=== PATIENT | male | born 1945 | race Caucasian/White ===

== ENCOUNTER → 2020-04-04 | Outpatient (CLI) | payer OTHER ==
[2020-04-04 12:11] LABS: Anisocytosis Slight; Basophils % (A) 1 %; Eosinophils # (A) 0.3 k/uL (0-0.7); Eosinophils % (A) 4 %; HCT 48.7 % (39.0-53.0); HGB 16.3 gm/dL (13.0-17.5); Lymphocytes # (A) 1.3 k/uL (1.0-4.8); Lymphocytes % (A) 17 %; MCH 27.5 pg (25.0-35.0); MCHC 33.3 g/dL (31.0-37.0); MCV 82.6 fL (80.0-100.0); Mean Platelet Volume 8.4; Monocytes # (A) 0.4 k/uL (0-1.0); Monocytes % (A) 5 %; Neutrophils # (A) 5.5 k/uL (1.3-7.7); Neutrophils % (A) 73 %; Platelet Count 147 k/uL (150-450); RDW 16.3 % (11.5-15.5); WBC 7.6 k/uL (3.8-10.6)
[2020-04-04 20:46] LABS: Albumin 4.4 g/dL (3.80-4.90); Albumin/Globulin Ratio 1.83 (1.60-3.17); Anion Gap 9.8 mmol/L (4.00-12.00); BUN/Creat Ratio 11.33 Ratio (12.00-20.00); Calcium 8.9 mg/dL (8.7-10.3); Carbon Dioxide 26.2 mmol/L (21.6-31.8); Globulin 2.4 g/dL (1.6-3.3); Non-African American GFR(CKD) 44.9 (60.0-200.0); Potassium 4.4 mmol/L (3.5-5.5); Total Bilirubin 1.4 mg/dL (0.3-1.2); Total Protein 6.8 g/dL (6.2-8.2)
[2020-04-04 21:53] LABS: Hemoglobin A1C 7.6 % (4.0-6.0)
== END | disposition home or self-care (01) ==
LOC: LABWHC1 10:56
PROVIDERS: ATTEND Thoracic Surgery (Cardiothoracic Vascular Surgery)
DX: E08.622 Diabetes mellitus due to underlying condition with other skin ulcer (principal); L97.212 Non-pressure chronic ulcer of right calf with fat layer exposed; I83.012 Varicose veins of right lower extremity with ulcer of calf; L97.222 Non-pressure chronic ulcer of left calf with fat layer exposed; I83.022 Varicose veins of left lower extremity with ulcer of calf
CPT/HCPCS: 36415; 80053; 83036; 84134; 85025

== ENCOUNTER → 2020-04-25 | Outpatient (CLI) | payer OTHER ==
--- NOTE | 2020-04-25 15:31 | US ---
EXAMINATION TYPE: US venous doppler duplex LE RT DATE OF EXAM: 04/25/2020 2:04 PM COMPARISON: NONE CLINICAL HISTORY: I83.012 Varicose veins of rt lower extremity w. ul. Varicose veins SIDE PERFORMED: Right TECHNIQUE: The lower extremity deep venous system is examined utilizing real time linear array sonog brenda with graded compression, doppler sonography and color-flow sonography. VESSELS IMAGED: External Iliac Vein (EIV) Common Femoral Vein Deep Femoral Vein Greater Saphenous Vein * Femoral Vein Popliteal Vein Small Saphenous Vein * Proximal Calf Veins (* superficial vessels) Right Leg: Negative for DVT IMPRESSION: No evidence for DVT.
== END | disposition home or self-care (01) ==
LOC: RADUSWWP 13:30
PROVIDERS: ATTEND Thoracic Surgery (Cardiothoracic Vascular Surgery)
DX: L97.222 Non-pressure chronic ulcer of left calf with fat layer exposed (principal); L97.212 Non-pressure chronic ulcer of right calf with fat layer exposed; I83.012 Varicose veins of right lower extremity with ulcer of calf; I83.022 Varicose veins of left lower extremity with ulcer of calf; E08.622 Diabetes mellitus due to underlying condition with other skin ulcer
CPT/HCPCS: 93923

== ENCOUNTER 2020-05-10 09:38 | Inpatient (IN) | payer OTHER, MEDICARE ==
[2020-05-10] MEDS ORDERED: PANTOPRAZOLE 40 MG/10 ML VIAL IVP STA (10:01)
--- NOTE | 2020-05-10 10:11 | ED ---
General Adult HPI - General Chief complaint: Dizziness Stated complaint: dizzy, nausea Time Seen by Provider: 05/10/20 09:49 Source: patient, family, RN notes reviewed Mode of arrival: wheelchair Limitations: physical limitation - History of Present Illness Initial comments: Patient is a pleasant 75-year-old male presenting to the emergency Department w ith fatigue and generalized weakness. Patient is hard of hearing however otherwise is a good historian. Symptoms started the last day or so. Patient does have a little bit of exertional dyspnea. Patient feels lightheaded. Patient is fatigued. Patient states this morning he did have black stools with some bloody stool. No abdominal pain. No confusion. No spinning type sensation. - Related Data Home Medications Medication Instructions Recorded Confirmed Aspirin EC [Ecotrin Low Dose] 81 mg PO DAILY 05/10/20 05/10/20 Ferrous Sulfate [Feosol] 325 mg PO DAILY 05/10/20 05/10/20 Furosemide [Lasix] 20 mg PO BID 05/10/20 05/10/20 Insulin Detemir (Levemir) [Levemir] 30 unit SQ HS 05/10/20 05/10/20 Potassium Chloride 10 meq PO DAILY 05/10/20 05/10/20 Warfarin [Coumadin] 2.5 mg PO SUTUWETHSA 05/10/20 05/10/20 Warfarin [Coumadin] 5 mg PO MOFR 05/10/20 05/10/20 glipiZIDE [Glucotrol] 5 mg PO AC-SUPPER 05/10/20 05/10/20 glipiZIDE [Glucotrol] 10 mg PO AC-BRKFST 05/10/20 05/10/20 Allergies Allergy/AdvReac Type Severity Reaction Status Date / Time No Known Allergies Allergy Verified 05/10/20 10:56 Review of Systems ROS Statement: Those systems with pertinent positive or pertinent negative responses have been documented in the HPI. ROS Other: All systems not noted in ROS Statement are negative. Constitutional: Denies: fever Eyes: Denies: eye pain ENT: Denies: ear pain Respiratory: Reports: as per HPI. Denies: cough Cardiovascular: Denies: chest pain Endocrine: Reports: fatigue Gastrointestinal: Reports: melena, hematochezia. Denies: abdominal pain Genitourinary: Denies: dysuria Musculoskeletal: Denies: back pain Skin: Denies: rash Neurological: Reports: as per HPI. Denies: headache, confusion Past Medical History Past Medical History: Diabetes Mellitus History of Any Multi-Drug Resistant Organisms: None Reported Past Surgical History: Appendectomy Additional Past Surgical History / Comment(s): right kidney removed. Past Psychological History: No Psychological Hx Reported Smoking Status: Former smoker Past Alcohol Use History: None Reported Past Drug Use History: None Reported General Exam Limitations: no limitations General appearance: alert, in no apparent distress Head exam: Present: normocephalic Eye exam: Present: normal appearance, PERRL, EOMI. Absent: nystagmus Neck exam: Present: normal inspection Respiratory exam: Present: normal lung sounds bilaterally Cardiovascular Exam: Present: regular rate, normal rhythm GI/Abdominal exam: Present: soft. Absent: tenderness Extremities exam: Present: normal inspection Neurological exam: Present: alert, oriented X3, CN II-XII intact. Absent: motor sensory deficit Expanded Neurological exam: Present: protecting the airway Patient oriented to: Present: person, place, time Speech: Present: fluid speech Cranial nerves: EOM's Intact: Normal Motor strength exam: RUE: 5, LUE: 5, RLE: 5, LLE: 5 Eye Response: (4) open spontaneously Motor Response: (6) obeys commands Verbal Response: (5) oriented Psychiatric exam: Present: normal affect, normal mood Skin exam: Present: normal color Course Vital Signs 05/10/20 05/10/20 09:43 10:11 Temperature 97.8 F Pulse Rate 92 94 Respiratory 18 18 Rate Blood Pressure 107/60 140/91 O2 Sat by Pulse 100 99 Oximetry EKG Findings - EKG Comments: EKG Findings:: Irregular narrow complex rhythm with a rate of 95. QRS 74. QT 320. QTc 402. Normal axis. Normal QRS. No acute ST change. Medical Decision Making - Medical Decision Making Patient evaluated. Patient and family updated. Dr. Fajardo has [facility] p[facility]. Case was discussed with practitioner Sierra, who will admit for Dr. Fajardo. - Lab Data Result diagrams: 05/10/20 10:26 05/10/20 10:26 Lab Results 05/10/20 05/10/20 05/10/20 Range/Units 10:26 10:26 10:26 WBC 10.9 H (3.8-10.6) k/uL RBC 3.71 L (4.30-5.90) m/uL Hgb 10.1 L D (13.0-17.5) gm/dL Hct 31.1 L (39.0-53.0) % MCV 83.7 (80.0-100.0) fL MCH 27.3 (25.0-35.0) pg MCHC 32.6 (31.0-37.0) g/dL RDW 16.8 H (11.5-15.5) % Plt Count 192 (150-450) k/uL Neutrophils % 88 % Lymphocytes % 7 % Monocytes % 3 % Eosinophils % 0 % Basophils % 0 % Neutrophils # 9.6 H (1.3-7.7) k/uL Lymphocytes # 0.8 L (1.0-4.8) k/uL Monocytes # 0.4 (0-1.0) k/uL Eosinophils # 0.0 (0-0.7) k/uL Basophils # 0.1 (0-0.2) k/uL Poikilocytosis Slight Anisocytosis Slight PT 33.8 H (9.0-12.0) sec INR 3.5 H (<1.2) APTT 28.4 (22.0-30.0) sec Sodium 132 L (137-145) mmol/L Potassium 5.6 H (3.5-5.1) mmol/L Chloride 105 (98-107) mmol/L Carbon Dioxide 19 L (22-30) mmol/L Anion Gap 8 mmol/L BUN 76 H (9-20) mg/dL Creatinine 1.47 H (0.66-1.25) mg/dL Est GFR (CKD-EPI)AfAm 53 (>60 ml/min/1.73 sqM) Est GFR (CKD-EPI)NonAf 46 (>60 ml/min/1.73 sqM) Glucose 340 H (74-99) mg/dL Calcium 8.3 L (8.4-10.2) mg/dL Total Bilirubin 1.2 (0.2-1.3) mg/dL AST 22 (17-59) U/L ALT 15 (4-49) U/L Alkaline Phosphatase 32 L (38-126) U/L Creatine Kinase 75 (55-170) U/L Troponin I (0.000-0.034) ng/mL Total Protein 5.3 L (6.3-8.2) g/dL Albumin 3.2 L (3.5-5.0) g/dL 05/10/20 Range/Units 10:26 WBC (3.8-10.6) k/uL RBC (4.30-5.90) m/uL Hgb (13.0-17.5) gm/dL Hct (39.0-53.0) % MCV (80.0-100.0) fL MCH (25.0-35.0) pg MCHC (31.0-37.0) g/dL RDW (11.5-15.5) % Plt Count (150-450) k/uL Neutrophils % % Lymphocytes % % Monocytes % % Eosinophils % % Basophils % % Neutrophils # (1.3-7.7) k/uL Lymphocytes # (1.0-4.8) k/uL Monocytes # (0-1.0) k/uL Eosinophils # (0-0.7) k/uL Basophils # (0-0.2) k/uL Poikilocytosis Anisocytosis PT (9.0-12.0) sec INR (<1.2) APTT (22.0-30.0) sec Sodium (137-145) mmol/L Potassium (3.5-5.1) mmol/L Chloride (98-107) mmol/L Carbon Dioxide (22-30) mmol/L Anion Gap mmol/L BUN (9-20) mg/dL Creatinine (0.66-1.25) mg/dL Est GFR (CKD-EPI)AfAm (>60 ml/min/1.73 sqM) Est GFR (CKD-EPI)NonAf (>60 ml/min/1.73 sqM) Glucose (74-99) mg/dL Calcium (8.4-10.2) mg/dL Total Bilirubin (0.2-1.3) mg/dL AST (17-59) U/L ALT (4-49) U/L Alkaline Phosphatase (38-126) U/L Creatine Kinase (55-170) U/L Troponin I 0.030 (0.000-0.034) ng/mL Total Protein (6.3-8.2) g/dL Albumin (3.5-5.0) g/dL - Radiology Data Radiology results: image reviewed Disposition Clinical Impression: GI hemorrhage Disposition: ADMITTED IP TO THIS HOSP Condition: Serious Is patient prescribed a controlled substance at d/c from ED?: No Referrals: [facility],Clinic [Primary Care Provider] - 1-2 days Decision Time: 11:18
[2020-05-10 10:48] LABS: Anisocytosis Slight; Basophils # (A) 0.1 k/uL (0-0.2); Basophils % (A) 0 %; Eosinophils % (A) 0 %; HCT 31.1 % (39.0-53.0); Lymphocytes # (A) 0.8 k/uL (1.0-4.8); Lymphocytes % (A) 7 %; MCH 27.3 pg (25.0-35.0); MCHC 32.6 g/dL (31.0-37.0); MCV 83.7 fL (80.0-100.0); Mean Platelet Volume 9.2; Monocytes # (A) 0.4 k/uL (0-1.0); Monocytes % (A) 3 %; Neutrophils # (A) 9.6 k/uL (1.3-7.7); Neutrophils % (A) 88 %; Platelet Count 192 k/uL (150-450); Poikilocytosis Slight; RBC 3.71 m/uL (4.30-5.90); RDW 16.8 % (11.5-15.5); WBC 10.9 k/uL (3.8-10.6)
[2020-05-10 10:53] LABS: Albumin 3.2 g/dL (3.5-5.0); Calcium 8.3 mg/dL (8.4-10.2); Potassium 5.6 mmol/L (3.5-5.1); Total Bilirubin 1.2 mg/dL (0.2-1.3); Total Protein 5.3 g/dL (6.3-8.2)
[2020-05-10 10:54] LABS: INR 3.5 (<1.2); Partial Thromboplastin Time 28.4 sec (22.0-30.0); Prothrombin Time 33.8 sec (9.0-12.0)
[2020-05-10 10:56] LABS: HGB 10.1 gm/dL (13.0-17.5)
--- NOTE | 2020-05-10 11:21 | XR ---
EXAMINATION TYPE: XR chest 2V DATE OF EXAM: 05/10/2020 COMPARISON: NONE HISTORY: Weakness TECHNIQUE: Frontal and lateral views of the chest are obtained. FINDINGS: There is no focal air space opacity, pleural effusion, or pneumothorax seen. The cardiac silhouette size is within normal limits. Aorta is dense. Thoracic spondylosis is present. Surgical cl ips present in the upper abdomen. There are coronary artery calcifications suspected. The osseous st ructures are intact, arthropathy present in the shoulders. IMPRESSION: No acute cardiopulmonary process.
[2020-05-10] MEDS ORDERED: NALOXONE 0.4 MG/ML 1 ML VIAL IV PRN (11:24)
[2020-05-10 11:27] LABS: Appearance,Urine Clear (Clear); Bilirubin,Urine Negative (Negative); Blood,Urine Negative (Negative); Color,Urine Light Yellow; Glucose,Urine (UA) 4+ (Negative); Ketones,Urine 1+ (Negative); Leukocyte Esterase,Urine Negative (Negative); Nitrite,Urine Negative (Negative); Protein,Urine Negative (Negative); Specific Gravity,Urine 1.018 (1.001-1.035); Urobilinogen,Urine <2.0 mg/dL (<2.0)
[2020-05-10] MEDS ORDERED: PANTOPRAZOLE 40 MG/10 ML VIAL IV SCH (11:30)
[2020-05-10] MEDS ORDERED: PHYTONADIONE ORAL 5 MG/5 ML ORAL.SYRG PO STA (11:31)
[2020-05-10] MEDS: SODIUM CHLORIDE 0.9% 1,000 ML IV SCH ×2 (11:54→20:45)
[2020-05-10 14:48] LABS: Anisocytosis Slight; HCT 27.8 % (39.0-53.0); HGB 9.2 gm/dL (13.0-17.5); MCH 27.8 pg (25.0-35.0); MCHC 33.1 g/dL (31.0-37.0); MCV 84.1 fL (80.0-100.0); Mean Platelet Volume 9.6; Platelet Count 206 k/uL (150-450); Poikilocytosis Slight; RBC 3.31 m/uL (4.30-5.90); WBC 12.6 k/uL (3.8-10.6)
[2020-05-10 14:55] LABS: INR 3.5 (<1.2); Prothrombin Time 34.1 sec (9.0-12.0)
[2020-05-10 15:02] LABS: Calcium 8.4 mg/dL (8.4-10.2); Potassium 5.8 mmol/L (3.5-5.1)
--- NOTE | 2020-05-10 15:30 | P.HPIM ---
History of Present Illness H&P Date: 05/10/20 Chief Complaint: Generalized weakness Patient is 74-year-old male with a known history of diabetes type 2, history of a right nephrectomy for benign tumor, varicose veins, chronic atrial fibrillation on anticoagulation with Coumadin and previous history of smoking as well as underlying cognitive impairment presents to ER with the complaints of generalized weakness and fatigue. Patient had a bowel movement with black stool this morning. Patient was also having exertional dyspnea. Denied any complaints of chest pain. Does feel lightheaded as well. No complaints of a bdominal pain. Denied any episodes of vomiting. Denied any nausea currently. Patient was found to have hemoglobin level 10.1 admission. Patient was admitted to the hospital with GI consultation. When he reaches the medical floor patient did have a large bowel movement with maroon color stool and bright red blood as well. Patient felt more weak and was diaphoretic. Repeat Hemoglobin did drop to 9.1. Contacted critical care team for possible transfer to medical intensive care unit. Laboratory data showed WBC 10.9, hemoglobin 10.1, RDW 16.8 and platelets 192 INR is 3.5 Sodium 132, potassium 5.6 and bicarb 19 BUN 76 and creatinine 1.47 CBG 340 Urinalysis is negative for infection Patient is a poor historian. Review of Systems Constitutional: Patient denies any fever or chills . Patient does have generalized weakness and fatigue. No weight loss.. Abdomen: Patient denied nausea vomiting and diarrhea and abdominal pain. Blood in the stool. Cardiovascular: Patient denies any chest pain or short of breath no palpitations. Respiratory: patient denied any cough is from production. No shortness of breath Neurologic: Patient denied any numbness or tingling headache. Musculoskeletal: Patient denies any complaints of joint swelling or deformity. Skin: Negative Psychiatric: Negative Endocrine: No heat or cold intolerance. No recent weight gain. Genitourinary: No dysuria or hematuria. All other 14 point ROS negative except the above Past Medical History Past Medical History: Diabetes Mellitus, Hearing Disorder / Deafness, Renal Disease Additional Past Medical History / Comment(s): IDDM type II, R nephrectomy for beign tumor, would to L lower extremity, [place] bilateraloly-uses hearing aides. Pt states he does not know why he is on coumadin or lasix. History of Any Multi-Drug Resistant Organisms: None Reported Past Surgical History: Appendectomy Additional Past Surgical History / Comment(s): right kidney removed for benign tumor, colonoscopy. Past Anesthesia/Blood Transfusion Reactions: No Reported Reaction Additional Past Anesthesia/Blood Transfusion Reaction / Comment(s): Pt is unsure if he received blood during R nephrectomy. Smoking Status: Former smoker - Past Family History Father Additional Family Medical History / Comment(s): Father had "heart problems" He at the age of 91 yrs. Mother Family Medical History: Cancer Additional Family Medical History / Comment(s): Mother had cancer at the age of 84 yrs but pt does not recall type. She at the age of 91 yrs. Medications and Allergies Home Medications Medication Instructions Recorded Confirmed Type Aspirin EC [Ecotrin Low Dose] 81 mg PO DAILY 05/10/20 05/10/20 History Ferrous Sulfate [Feosol] 325 mg PO DAILY 05/10/20 05/10/20 History Furosemide [Lasix] 20 mg PO BID 05/10/20 05/10/20 History Insulin Detemir (Levemir) [Levemir] 30 unit SQ HS 05/10/20 05/10/20 History Potassium Chloride 10 meq PO DAILY 05/10/20 05/10/20 History Warfarin [Coumadin] 2.5 mg PO SUTUWETHSA 05/10/20 05/10/20 History Warfarin [Coumadin] 5 mg PO MOFR 05/10/20 05/10/20 History glipiZIDE [Glucotrol] 5 mg PO AC-SUPPER 05/10/20 05/10/20 History glipiZIDE [Glucotrol] 10 mg PO AC-BRKFST 05/10/20 05/10/20 History Allergies Allergy/AdvReac Type Severity Reaction Status Date / Time No Known Allergies Allergy Verified 05/10/20 10:56 Physical Exam Vitals: Vital Signs Temp Pulse Resp BP BP Pulse Ox 05/10/20 13:50 22 105/59 100 05/10/20 11:58 98.3 F 05/10/20 11:30 96 21 111/61 100 05/10/20 10:11 94 18 140/91 99 05/10/20 09:43 97.8 F 92 18 107/60 100 Intake and Output 05/10/20 05/10/20 05/10/20 06:59 14:59 22:59 Other: Weight 107.955 kg PHYSICAL EXAMINATION: Patient is lying in the bed comfortably, no acute distress, awake alert and oriented. But lethargic and clammy.. HEENT: Normocephalic. Neck is supple. Pupils reactive. Nostrils clear. Oral cavity is moist. Ears reveal no drainage. Neck reveals no JVD, carotid bruits, or thyromegaly. CHEST EXAMINATION: Trachea is central. Symmetrical expansion. Bibasilar diminished air entry. Lung mccall clear to auscultation and percussion. CARDIAC: Normal S1, S2 with no gallops. No murmurs ABDOMEN: Soft. Nontender. Mild distention. Bowel sounds normal. No organomegaly. No abdominal bruits. Extremities: reveal no edema. No clubbing or cyanosis Neurologically awake, alert, oriented x2-3 with well-coordinated movements. Heart of hearing. No focal deficits noted Skin: No rash or skin lesions. Psychiatric: Coperative. Could not be assessed completely Musculoskeletal: No joint swelling or deformity. Normal range of motion. Results CBC & Chem 7: 05/10/20 14:34 05/10/20 14:34 Labs: Abnormal Lab Results - Last 24 Hours (Table) 05/10/20 05/10/20 05/10/20 Range/Units 10:26 10:26 10:26 WBC 10.9 H (3.8-10.6) k/uL RBC 3.71 L (4.30-5.90) m/uL Hgb 10.1 L D (13.0-17.5) gm/dL Hct 31.1 L (39.0-53.0) % RDW 16.8 H (11.5-15.5) % Neutrophils # 9.6 H (1.3-7.7) k/uL Lymphocytes # 0.8 L (1.0-4.8) k/uL PT 33.8 H (9.0-12.0) sec INR 3.5 H (<1.2) Sodium 132 L (137-145) mmol/L Potassium 5.6 H (3.5-5.1) mmol/L Carbon Dioxide 19 L (22-30) mmol/L BUN 76 H (9-20) mg/dL Creatinine 1.47 H (0.66-1.25) mg/dL Glucose 340 H (74-99) mg/dL Calcium 8.3 L (8.4-10.2) mg/dL Alkaline Phosphatase 32 L (38-126) U/L Total Protein 5.3 L (6.3-8.2) g/dL Albumin 3.2 L (3.5-5.0) g/dL Urine Glucose (UA) (Negative) Urine Ketones (Negative) 05/10/20 05/10/20 05/10/20 Range/Units 11:16 14:34 14:34 WBC 12.6 H (3.8-10.6) k/uL RBC 3.31 L (4.30-5.90) m/uL Hgb 9.2 L (13.0-17.5) gm/dL Hct 27.8 L (39.0-53.0) % RDW 17.0 H (11.5-15.5) % Neutrophils # (1.3-7.7) k/uL Lymphocytes # (1.0-4.8) k/uL PT (9.0-12.0) sec INR (<1.2) Sodium 131 L (137-145) mmol/L Potassium 5.8 H (3.5-5.1) mmol/L Carbon Dioxide 16 L (22-30) mmol/L BUN 80 H (9-20) mg/dL Creatinine 1.59 H (0.66-1.25) mg/dL Glucose 351 H (74-99) mg/dL Calcium (8.4-10.2) mg/dL Alkaline Phosphatase 30 L (38-126) U/L Total Protein 5.0 L (6.3-8.2) g/dL Albumin 3.0 L (3.5-5.0) g/dL Urine Glucose (UA) 4+ H (Negative) Urine Ketones 1+ H (Negative) 05/10/20 Range/Units 14:34 WBC (3.8-10.6) k/uL RBC (4.30-5.90) m/uL Hgb (13.0-17.5) gm/dL Hct (39.0-53.0) % RDW (11.5-15.5) % Neutrophils # (1.3-7.7) k/uL Lymphocytes # (1.0-4.8) k/uL PT 34.1 H (9.0-12.0) sec INR 3.5 H (<1.2) Sodium (137-145) mmol/L Potassium (3.5-5.1) mmol/L Carbon Dioxide (22-30) mmol/L BUN (9-20) mg/dL Creatinine (0.66-1.25) mg/dL Glucose (74-99) mg/dL Calcium (8.4-10.2) mg/dL Alkaline Phosphatase (38-126) U/L Total Protein (6.3-8.2) g/dL Albumin (3.5-5.0) g/dL Urine Glucose (UA) (Negative) Urine Ketones (Negative) Thrombosis Risk Factor Assmnt - DVT/VTE Prophylaxis DVT/VTE Prophylaxis: Mechanical Prophylaxis ordered - Choose All That Apply Any of the Below Risk Factors Present?: Yes Each Factor Represents 1 point: Obesity (BMI >25), Varicose veins Each Risk Factor Represents 3 Points: Age 75 years or older Other congenital or acquired thrombophilia - If yes, enter type in comment: No Thrombosis Risk Factor Assessment Total Risk Factor Score: 5 Thrombosis Risk Factor Assessment Level: High Risk Assessment and Plan Assessment: Symptomatic anemia Acute blood loss anemia secondary to GI bleed Chronic atrial fibrillation on anticoagulation with Coumadin Diabetes type 2 with hyperglycemia uncontrolled. 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 Previous history of smoking DVT prophylaxis with SCDs plan: Patient will be continued on IV hydration and monitor H&H closely. Continue with Protonix IV. Gastroenterology was consulted. Transfusion if the hemoglobin is less than 3. Monitor INR level. Patient is a poor historian otherwise. Possible transfer to medical intensive care unit for close monitoring due to active GI bleed. Prognosis is guarded with multiple medical problems and comorbid conditions. Time with Patient: Greater than 30
[2020-05-10 15:59] LABS: Glucose,Whole Blood 364 mg/dL (75-99)
[2020-05-10] MEDS ORDERED: PEG 3350-NA SULF,BICARB,CL/KCL 4,000 ML BOTTLE PO ONE (17:00)
[2020-05-10 17:40] LABS: Glucose,Whole Blood 329 mg/dL (75-99)
[2020-05-10] MEDS: INSULIN ASPART (NovoLOG) 100 UNIT/ML VIAL SQ SCH (17:56)
[2020-05-10 22:05] LABS: Anisocytosis Slight; HCT 22.7 % (39.0-53.0); Hypochromasia Slight; MCH 27.4 pg (25.0-35.0); MCHC 32.1 g/dL (31.0-37.0); MCV 85.4 fL (80.0-100.0); Mean Platelet Volume 9.1; Platelet Count 186 k/uL (150-450); Poikilocytosis Slight; RBC 2.66 m/uL (4.30-5.90); RDW 17.4 % (11.5-15.5); WBC 15.4 k/uL (3.8-10.6)
[2020-05-10 22:11] LABS: HGB 7.3 gm/dL (13.0-17.5)
[2020-05-11 00:15] LABS: Glucose,Whole Blood 354 mg/dL (75-99)
[2020-05-11] MEDS: INSULIN ASPART (NovoLOG) 100 UNIT/ML VIAL SQ SCH ×5 (00:17→21:49)
[2020-05-11 05:59] LABS: Glucose,Whole Blood 370 mg/dL (75-99)
[2020-05-11] MEDS ORDERED: PHYTONADIONE 10 MG in SODIUM CHLORIDE 0.9% 50 ML IVPB STA (06:10)
--- NOTE | 2020-05-11 06:21 | P.CONS ---
History of Present Illness - Reason for Consult Consult date: 05/10/20 GI bleed Requesting physician: Justin Nova - Chief Complaint Weakness, fatigue, melena - History of Present Illness 74-year-old male with a medical history significant for diabetes mellitus, right nephrectomy for benign tumor, atrial fibrillation on anticoagulation therapy with Coumadin, hearing impairment and cognitive impairment who presented to the hospital for complaints of weakness and fatigue. The patient also reported melanotic stool. He had 3 black tarry bowel movements prior to presentation and then a large maroon-colored stool after presenting to the hospital. Patient is on Coumadin therapy. He also takes iron therapy and aspirin at home. No prior EGDs or history of peptic ulcer disease reported. Last colonoscopy for screening was approximately 10-15 years ago and he believes this was negative. The patient denied any associated abdominal pain or cramping, nausea or vomiting, history of GERD or peptic ulcer disease or NSAID use. Patient was found to have a hemoglobin on presentation of 10.1 and subsequently found to be 9.1 on repeat blood draw and then 7.3. Current plan was for medical management, transfer to the ICU and transfusion of packed red blood cells. Review of Systems REVIEW OF SYSTEMS: CONSTITUTIONAL: Denies any fevers, chills, weight change but does report fatigue and weakness. CARDIOVASCULAR: Denies any chest pain, palpitations high or low blood pressures, history of atrial fibrillation. RESPIRATORY: Denies any shortness of breath, hemoptysis or cough. GENITOURINARY: No dysuria or hematuria. MUSCULOSKELETAL: No weakness reported. SKIN: Denies any new rashes or lesions, jaundice or pallor. PSYCHIATRIC: Denies any depression or anxiety. NEUROLOGY: Denies headache, denies any new focal deficits, memory impairment at baseline. EARS/NOSE/THROAT: No recent hearing change, congestion, nasal discharge or sore throat, patient suffers from hearing impairment at baseline. EYES: No pain in eyes, discharge or change in vision. GASTROINTESTINAL: As per HPI. Past Medical History Past Medical History: Diabetes Mellitus, Hearing Disorder / Deafness, Renal Disease Additional Past Medical History / Comment(s): IDDM type II, R nephrectomy for beign tumor, would to L lower extremity, [place] bilateraloly-uses hearing aides. Pt states he does not know why he is on coumadin or lasix. History of Any Multi-Drug Resistant Organisms: None Reported Past Surgical History: Appendectomy Additional Past Surgical History / Comment(s): right kidney removed for benign tumor, colonoscopy. Past Anesthesia/Blood Transfusion Reactions: No Reported Reaction Additional Past Anesthesia/Blood Transfusion Reaction / Comm: Pt is unsure if he received blood during R nephrectomy. Smoking Status: Former smoker - Past Family History Father Additional Family Medical History / Comment(s): Father had "heart problems" He at the age of 91 yrs. Mother Family Medical History: Cancer Additional Family Medical History / Comment(s): Mother had cancer at the age of 84 yrs but pt does not recall type. She at the age of 91 yrs. Medications and Allergies Home Medications Medication Instructions Recorded Confirmed Type Aspirin EC [Ecotrin Low Dose] 81 mg PO DAILY 05/10/20 05/10/20 History Ferrous Sulfate [Feosol] 325 mg PO DAILY 05/10/20 05/10/20 History Furosemide [Lasix] 20 mg PO BID 05/10/20 05/10/20 History Insulin Detemir (Levemir) [Levemir] 30 unit SQ HS 05/10/20 05/10/20 History Potassium Chloride 10 meq PO DAILY 05/10/20 05/10/20 History Warfarin [Coumadin] 2.5 mg PO SUTUWETHSA 05/10/20 05/10/20 History Warfarin [Coumadin] 5 mg PO MOFR 05/10/20 05/10/20 History glipiZIDE [Glucotrol] 5 mg PO AC-SUPPER 05/10/20 05/10/20 History glipiZIDE [Glucotrol] 10 mg PO AC-BRKFST 05/10/20 05/10/20 History Allergies Allergy/AdvReac Type Severity Reaction Status Date / Time No Known Allergies Allergy Verified 05/10/20 10:56 Physical Exam Vitals: Vital Signs Temp Pulse Pulse Resp BP BP Pulse Ox 05/10/20 19:00 99 18 154/88 99 05/10/20 18:30 89 16 164/81 100 05/10/20 18:00 85 14 130/70 100 05/10/20 17:00 96 22 132/99 98 05/10/20 16:30 94 18 128/70 100 05/10/20 16:00 97.9 F 96 17 138/78 99 05/10/20 15:00 97.3 F L 77 18 123/77 99 05/10/20 13:50 22 105/59 100 05/10/20 11:58 98.3 F 05/10/20 11:30 96 21 111/61 100 05/10/20 10:11 94 18 140/91 99 05/10/20 09:43 97.8 F 92 18 107/60 100 Intake and Output 05/10/20 05/10/20 05/10/20 06:59 14:59 22:59 Intake Total 960 Output Total 400 Balance 560 Intake: IV 360 Sodium Chloride 0.9% 1, 360 000 ml @ 120 mls/hr IV . Q8H20M [facility] Rx#:[id number] Oral 600 Output: Urine 400 Other: Voiding Method Urinal # Bowel Movements 1 Weight 107.955 kg On physical examination, patient appears comfortable in no apparent distress. HEAD: Normocephalic, atraumatic. EYES: No scleral icterus. No conjunctival injection. MOUTH: No lesions, tongue midline. NECK: Trachea midline, no gross abnormalities. CHEST: Clear to auscultation with no wheezing or rhonchi appreciated. HEART: S1-S2 appreciated. ABDOMEN: Soft, obese. Bowel sounds are positive. No organomegaly. No guarding or rigidity. EXTREMITIES: No pedal edema. SKIN: No rashes, no jaundice. NEUROLOGIC: Alert and oriented x3, heart appearing. No focal deficits. Results CBC & Chem 7: 05/10/20 21:42 05/10/20 21:42 Labs: Abnormal Lab Results - Last 24 Hours (Table) 05/10/20 05/10/20 05/10/20 Range/Units 10:26 10:26 10:26 WBC 10.9 H (3.8-10.6) k/uL RBC 3.71 L (4.30-5.90) m/uL Hgb 10.1 L D (13.0-17.5) gm/dL Hct 31.1 L (39.0-53.0) % RDW 16.8 H (11.5-15.5) % Neutrophils # 9.6 H (1.3-7.7) k/uL Lymphocytes # 0.8 L (1.0-4.8) k/uL PT 33.8 H (9.0-12.0) sec INR 3.5 H (<1.2) Sodium 132 L (137-145) mmol/L Potassium 5.6 H (3.5-5.1) mmol/L Carbon Dioxide 19 L (22-30) mmol/L BUN 76 H (9-20) mg/dL Creatinine 1.47 H (0.66-1.25) mg/dL Glucose 340 H (74-99) mg/dL POC Glucose (mg/dL) (75-99) mg/dL Calcium 8.3 L (8.4-10.2) mg/dL Alkaline Phosphatase 32 L (38-126) U/L Total Protein 5.3 L (6.3-8.2) g/dL Albumin 3.2 L (3.5-5.0) g/dL Urine Glucose (UA) (Negative) Urine Ketones (Negative) 05/10/20 05/10/20 05/10/20 Range/Units 11:16 14:34 14:34 WBC 12.6 H (3.8-10.6) k/uL RBC 3.31 L (4.30-5.90) m/uL Hgb 9.2 L (13.0-17.5) gm/dL Hct 27.8 L (39.0-53.0) % RDW 17.0 H (11.5-15.5) % Neutrophils # (1.3-7.7) k/uL Lymphocytes # (1.0-4.8) k/uL PT (9.0-12.0) sec INR (<1.2) Sodium 131 L (137-145) mmol/L Potassium 5.8 H (3.5-5.1) mmol/L Carbon Dioxide 16 L (22-30) mmol/L BUN 80 H (9-20) mg/dL Creatinine 1.59 H (0.66-1.25) mg/dL Glucose 351 H (74-99) mg/dL POC Glucose (mg/dL) (75-99) mg/dL Calcium (8.4-10.2) mg/dL Alkaline Phosphatase 30 L (38-126) U/L Total Protein 5.0 L (6.3-8.2) g/dL Albumin 3.0 L (3.5-5.0) g/dL Urine Glucose (UA) 4+ H (Negative) Urine Ketones 1+ H (Negative) 05/10/20 05/10/20 05/10/20 Range/Units 14:34 15:57 17:39 WBC (3.8-10.6) k/uL RBC (4.30-5.90) m/uL Hgb (13.0-17.5) gm/dL Hct (39.0-53.0) % RDW (11.5-15.5) % Neutrophils # (1.3-7.7) k/uL Lymphocytes # (1.0-4.8) k/uL PT 34.1 H (9.0-12.0) sec INR 3.5 H (<1.2) Sodium (137-145) mmol/L Potassium (3.5-5.1) mmol/L Carbon Dioxide (22-30) mmol/L BUN (9-20) mg/dL Creatinine (0.66-1.25) mg/dL Glucose (74-99) mg/dL POC Glucose (mg/dL) 364 H 329 H (75-99) mg/dL Calcium (8.4-10.2) mg/dL Alkaline Phosphatase (38-126) U/L Total Protein (6.3-8.2) g/dL Albumin (3.5-5.0) g/dL Urine Glucose (UA) (Negative) Urine Ketones (Negative) Chest x-ray: report reviewed (No acute cardiopulmonary process on chest x-ray) Assessment and Plan (1) GI hemorrhage Narrative/Plan: 75-year-old male with multiple medical comorbidities including atrial f ibrillation on anticoagulation therapy who presented to the hospital for weakness, fatigue and melena. Patient had multiple dark colored stool and one maroon color stool left to presentation. No history of peptic ulcer disease, NSAID use but patient is on anticoagulation therapy for atrial fibrillation and daily aspirin therapy. No prior GI bleeding reported. Last colonoscopy 10-15 years ago for screening purposes with no prior EGD. Unknown etiology, may represent peptic ulcer disease, gastritis, esophagitis, AVM or other etiology. Current Visit: Yes Status: Acute Code(s): K92.2 - GASTROINTESTINAL HEMORRHAGE, UNSPECIFIED SNOMED Code(s): 13178545 (2) Anemia associated with acute blood loss Current Visit: Yes Status: Acute Code(s): D62 - ACUTE POSTHEMORRHAGIC ANEMIA SNOMED Code(s): 091641457 Plan: Supportive care Clear liquid diet Nothing by mouth after midnight Vitamin K given for reversal of INR, will repeat INR extra doses as needed for reversal Bowel prep ordered Continue monitor CBC and transfuse as needed Continue Protonix therapy Plan for EGD and colonoscopy tomorrow for further evaluation Thank you for allowing us to participate in the care of the patient
[2020-05-11 06:30] LABS: Anisocytosis Slight; Basophils # (A) 0.1 k/uL (0-0.2); Basophils % (A) 0 %; Eosinophils # (A) 0.1 k/uL (0-0.7); Eosinophils % (A) 0 %; HGB 7.5 gm/dL (13.0-17.5); Hypochromasia Slight; Lymphocytes # (A) 1.8 k/uL (1.0-4.8); Lymphocytes % (A) 10 %; MCH 28.8 pg (25.0-35.0); MCHC 32.5 g/dL (31.0-37.0); MCV 88.6 fL (80.0-100.0); Mean Platelet Volume 9.1; Monocytes # (A) 0.7 k/uL (0-1.0); Monocytes % (A) 4 %; Neutrophils # (A) 15.7 k/uL (1.3-7.7); Neutrophils % (A) 85 %; Platelet Count 218 k/uL (150-450); Poikilocytosis Slight; RDW 18.1 % (11.5-15.5); WBC 18.6 k/uL (3.8-10.6)
[2020-05-11 06:36] LABS: INR 3.6 (<1.2); Prothrombin Time 35.7 sec (9.0-12.0)
[2020-05-11 06:39] LABS: Calcium 7.6 mg/dL (8.4-10.2); Potassium 5.3 mmol/L (3.5-5.1)
[2020-05-11] MEDS: SODIUM CHLORIDE 0.9% 1,000 ML IV SCH ×3 (06:40→21:51)
[2020-05-11] MEDS ORDERED: MAGNESIUM CITRATE 296 ML BOTTLE PO ONE (07:15)
[2020-05-11] MEDS: PANTOPRAZOLE 40 MG/10 ML VIAL IV SCH ×2 (08:33→21:50)
--- NOTE | 2020-05-11 10:08 | P.CNPUL ---
History of Present Illness Consult date: 05/11/20 Reason for consult: dyspnea, other Chief complaint: Weakness, dyspnea, anemia History of present illness: 75-year-old white male patient who follows at the [facility] for healthcare services presented to the emergency department on 05/10/2020 for evaluation of fatigue, generalized weakness that started the day before. Patient also reported exertional dyspnea, lightheadedness, and black stools with some bloody stools. He denied abdominal pain, denied chest pain. Patient extremely hard of hearing, and he is a poor historian. Patient is on Coumadin for history of atrial fibrillation, his INR on presentation was 3.5 he was given some vitamin K in the emergency department, his hemoglobin was 10.1, which was down 6 g from his previous hemoglobin done on 04/04/2020. BUN is 76, creatinine is 1.47, potassium 5.6, sodium is 132, proBNP was 982, and troponin was 0.030. Patient was given some IV fluids, he was being monitored on the observation unit, will yesterday in the afternoon on 05/10/2020 patient was increasingly more short of breath, he was starting to pass large black tarry bowel movements, he was moved to the intensive care unit for closer monitoring, his hemoglobin did drop to 7.3 last night, and patient was given a unit of packed red blood cells, this morning in the lumen is 7.5 and patient is receiving his second unit of packed red blood cells, Coumadin is on hold, today's INR 3.6, she was given an and 10 mg of vitamin K. He is on PPI therapy with Protonix 40 mg twice a day, he is nothing by mouth, he was evaluated by GI service and he is scheduled for EGD and colonoscopy today. Nursing reports patient being more short of breath, lung sounds are diminished, there is some upper airway congestion, but no acute distress, his pulse ox is 100% on 2 L, he is not on any vasopressor support, his 0.9 is infusing at a rate of 120 ML per hour. No hematemesis. Patient is an ex-smoker, which is currently in remission, is very difficult to communicate with the patient is a patient is very hard of hearing. Chest x-ray shows no focal airspace opacity no pleural effusion or pneumothorax. Review of Systems All systems: negative Constitutional: Reports fatigue, Reports weakness, Denies chills, Denies fever Eyes: denies blurred vision, denies pain Ears, nose, mouth and throat: Denies headache, Denies sore throat Cardiovascular: Reports dyspnea on exertion, Reports lightheadedness, Denies chest pain, Denies shortness of breath Respiratory: Reports dyspnea, Denies cough Gastrointestinal: Reports change in bowel habits, Reports melena, Denies abdominal pain, Denies diarrhea, Denies nausea, Denies vomiting Musculoskeletal: Denies myalgias Integumentary: Denies pruritus, Denies rash Neurological: Denies numbness, Denies weakness Psychiatric: Denies anxiety, Denies depression Endocrine: Denies fatigue, Denies weight change Past Medical History Past Medical History: Diabetes Mellitus, Hearing Disorder / Deafness, Renal D isease Additional Past Medical History / Comment(s): IDDM type II, R nephrectomy for beign tumor, would to L lower extremity, [place] bilateraloly-uses hearing aides. Pt states he does not know why he is on coumadin or lasix. History of Any Multi-Drug Resistant Organisms: None Reported Past Surgical History: Appendectomy Additional Past Surgical History / Comment(s): right kidney removed for benign t umor, colonoscopy. Past Anesthesia/Blood Transfusion Reactions: No Reported Reaction Additional Past Anesthesia/Blood Transfusion Reaction / Comment(s): Pt is unsure if he received blood during R nephrectomy. Smoking Status: Former smoker - Past Family History Father Additional Family Medical History / Comment(s): Father had "heart problems" He at the age of 91 yrs. Mother Family Medical History: Cancer Additional Family Medical History / Comment(s): Mother had cancer at the age of 84 yrs but pt does not recall type. She at the age of 91 yrs. Medications and Allergies Home Medications Medication Instructions Recorded Confirmed Type Aspirin EC [Ecotrin Low Dose] 81 mg PO DAILY 05/10/20 05/10/20 History Ferrous Sulfate [Feosol] 325 mg PO DAILY 05/10/20 05/10/20 History Furosemide [Lasix] 20 mg PO BID 05/10/20 05/10/20 History Insulin Detemir (Levemir) [Levemir] 30 unit SQ HS 05/10/20 05/10/20 History Potassium Chloride 10 meq PO DAILY 05/10/20 05/10/20 History Warfarin [Coumadin] 2.5 mg PO SUTUWETHSA 05/10/20 05/10/20 History Warfarin [Coumadin] 5 mg PO MOFR 05/10/20 05/10/20 History glipiZIDE [Glucotrol] 5 mg PO AC-SUPPER 05/10/20 05/10/20 History glipiZIDE [Glucotrol] 10 mg PO AC-BRKFST 05/10/20 05/10/20 History Allergies Allergy/AdvReac Type Severity Reaction Status Date / Time No Known Allergies Allergy Verified 05/10/20 10:56 Physical Exam Vitals: Vital Signs Temp Pulse Pulse Resp BP BP Pulse Ox 05/11/20 09:50 96.6 F L 101 H 22 119/80 100 05/11/20 09:00 99 20 129/62 98 05/11/20 08:37 96.5 F L 101 H 17 120/67 99 05/11/20 08:07 96.7 F L 92 17 104/57 98 05/11/20 08:00 96.6 F L 109 H 25 H 128/59 05/11/20 07:57 96.6 F L 101 H 16 120/59 96 05/11/20 07:00 99 23 116/63 100 05/11/20 06:00 101 H 21 130/65 100 05/11/20 05:00 111 H 13 140/71 100 05/11/20 04:00 98.1 F 95 19 114/62 100 05/11/20 03:00 92 18 111/62 100 05/11/20 02:33 97.6 F 93 17 110/57 99 05/11/20 02:32 97.6 F 96 17 111/58 100 05/11/20 02:00 96 12 118/71 100 05/11/20 01:00 100 18 127/69 100 05/11/20 00:29 97.9 F 100 12 123/62 100 05/11/20 00:00 97.9 F 92 20 145/72 99 05/10/20 23:59 97.5 F L 98 20 138/60 100 05/10/20 23:49 97.6 F 93 21 145/72 99 05/10/20 23:00 96 20 137/74 99 05/10/20 22:30 105 H 19 106/63 99 05/10/20 22:00 98 21 97/63 100 05/10/20 21:30 105 H 17 119/57 99 05/10/20 21:00 112 H 23 129/55 99 05/10/20 20:30 90 14 117/63 99 05/10/20 20:00 97.5 F L 101 H 12 112/66 100 05/10/20 19:00 99 18 154/88 99 05/10/20 18:30 89 16 164/81 100 05/10/20 18:00 85 14 130/70 100 05/10/20 17:00 96 22 132/99 98 05/10/20 16:30 94 18 128/70 100 05/10/20 16:00 97.9 F 96 17 138/78 99 05/10/20 15:00 97.3 F L 77 18 123/77 99 05/10/20 13:50 22 105/59 100 05/10/20 11:58 98.3 F 05/10/20 11:30 96 21 111/61 100 05/10/20 10:11 94 18 140/91 99 Intake and Output 05/10/20 05/11/20 05/11/20 22:59 06:59 14:59 Intake Total 1920 1580 770 Output Total 400 300 400 Balance 1520 1280 370 Intake: IV 720 960 360 Sodium Chloride 0.9% 1, 720 960 360 000 ml @ 120 mls/hr IV . Q8H20M [facility] Rx#:[id number] Oral 1200 100 Blood Product 620 310 Rc Pheresis 2 As3 Unit 310 [id number] Rc Pheresis As-3 Unit 310 [id number] Output: Urine 400 300 400 Other: Voiding Method Urinal Urinal Urinal # Voids 1 1 1 # Bowel Movements 1 Weight 107.8 kg GENERAL EXAM: Sleepy, but arousable, 75-year-old white male, resting comfortably in bed, he does have some upper airway congestion, and 2 L of oxygen the pulse ox 100%, is very hard of hearing which makes it very difficult to communicate with him and obtaining a history comfortable in no apparent distress. HEAD: Normocephalic/atraumatic. EYES: Normal reaction of pupils, equal size. Conjunctiva pink, sclera white. NOSE: Clear with pink turbinates. THROAT: No erythema or exudates. NECK: No masses, no JVD, no thyroid enlargement, no adenopathy. CHEST: No chest wall deformity. Symmetrical expansion. LUNGS: Equal air entry with no crackles, wheeze, rhonchi or dullness. CVS: Irregular rate and rhythm, normal S1 and S2, no gallops, no murmurs, no rubs ABDOMEN: Soft, nontender. No hepatosplenomegaly, normal bowel sounds, no guarding or rigidity. EXTREMITIES: No clubbing, no edema, no cyanosis, 2+ pulses and upper and lower extremities. MUSCULOSKELETAL: Muscle strength and tone normal. SPINE: No scoliosis or deformity SKIN: No rashes CENTRAL NERVOUS SYSTEM: Alert and oriented -3. No focal deficits, tone is normal in all 4 extremities. PSYCHIATRIC: Alert and oriented -3. Appropriate affect. Intact judgment and insight. Results - Laboratory Findings CBC and BMP: 05/11/20 06:17 05/11/20 06:17 PT/INR, D-dimer PT 35.7 sec (9.0-12.0) H 05/11/20 06:17 INR 3.6 (<1.2) H 05/11/20 06:17 Abnormal lab findings: Abnormal Labs 05/10/20 05/10/20 05/10/20 10:23 10:26 10:26 WBC 10.9 H RBC 3.71 L Hgb 10.1 L D Hct 31.1 L RDW 16.8 H Neutrophils # 9.6 H Lymphocytes # 0.8 L PT 33.8 H INR 3.5 H Sodium Potassium Carbon Dioxide BUN Creatinine Glucose POC Glucose (mg/dL) Calcium Alkaline Phosphatase Total Protein Albumin Urine Glucose (UA) Urine Ketones Crossmatch See Detail 05/10/20 05/10/20 05/10/20 10:26 11:16 14:34 WBC RBC Hgb Hct RDW Neutrophils # Lymphocytes # PT INR Sodium 132 L 131 L Potassium 5.6 H 5.8 H Carbon Dioxide 19 L 16 L BUN 76 H 80 H Creatinine 1.47 H 1.59 H Glucose 340 H 351 H POC Glucose (mg/dL) Calcium 8.3 L Alkaline Phosphatase 32 L 30 L Total Protein 5.3 L 5.0 L Albumin 3.2 L 3.0 L Urine Glucose (UA) 4+ H Urine Ketones 1+ H Crossmatch 05/10/20 05/10/20 05/10/20 14:34 14:34 15:57 WBC 12.6 H RBC 3.31 L Hgb 9.2 L Hct 27.8 L RDW 17.0 H Neutrophils # Lymphocytes # PT 34.1 H INR 3.5 H Sodium Potassium Carbon Dioxide BUN Creatinine Glucose POC Glucose (mg/dL) 364 H Calcium Alkaline Phosphatase Total Protein Albumin Urine Glucose (UA) Urine Ketones Crossmatch 05/10/20 05/10/20 05/10/20 17:39 21:42 21:42 WBC 15.4 H RBC 2.66 L Hgb 7.3 L D Hct 22.7 L RDW 17.4 H Neutrophils # Lymphocytes # PT INR Sodium 130 L Potassium Carbon Dioxide 12 L BUN 80 H Creatinine 1.48 H Glucose 315 H POC Glucose (mg/dL) 329 H Calcium 8.0 L Alkaline Phosphatase Total Protein Albumin Urine Glucose (UA) Urine Ketones Crossmatch 05/11/20 05/11/20 05/11/20 00:13 05:57 06:17 WBC RBC Hgb Hct RDW Neutrophils # Lymphocytes # PT INR Sodium 131 L Potassium 5.3 H Carbon Dioxide 12 L BUN 80 H Creatinine 1.55 H Glucose 321 H POC Glucose (mg/dL) 354 H 370 H Calcium 7.6 L Alkaline Phosphatase Total Protein Albumin Urine Glucose (UA) Urine Ketones Crossmatch 05/11/20 05/11/20 06:17 06:17 WBC 18.6 H RBC 2.60 L Hgb 7.5 L Hct 23.0 L RDW 18.1 H Neutrophils # 15.7 H Lymphocytes # PT 35.7 H INR 3.6 H Sodium Potassium Carbon Dioxide BUN Creatinine Glucose POC Glucose (mg/dL) Calcium Alkaline Phosphatase Total Protein Albumin Urine Glucose (UA) Urine Ketones Crossmatch - Diagnostic Findings Chest x-ray: report reviewed, image reviewed Assessment and Plan Plan: Assessment: #1. Acute GI blood loss anemia, symptomatic, requiring transfusion with 2 units of packed red blood cells #2. Weakness, lightheadedness, fatigue, shortness of breath and black tarry sto ols related to the above, EGD and colonoscopy pending today #3. Mild coagulopathy related to Coumadin therapy for chronic A. fib, patient received 2 doses of vitamin K, today's INR is 3.6 #4. Chronic atrial fibrillation, on Coumadin #5. Hard of hearing #6. Leukocytosis #7. Acute kidney injury related to acute blood loss anemia #8. Hyponatremia, possibly hypovolemic, mild, with serum sodium of 130 #9. Diabetes mellitus #10. History of right nephrectomy for benign tumor #11. Former smoker Plan: Continue current medical treatment, patient is receiving his second unit of packed red blood cells, continue with IV fluids, he is not requiring any vasopressor support, he feels somewhat short of breath, no acute distress, he is on 2 L of oxygen maintaining stable oxygenation, chest x-ray has been reviewed showing no acute cardiopulmonary process. EGD and colonoscopy are pending for today, he was given additional dose of vitamin K for INR of 3.6. Coumadin remains on hold, we'll continue to closely monitor the patient in the intensive care unit. I performed a history & physical examination of the patient and discussed their management with my nurse practitioner, Ene Antunez. I reviewed the nurse practitioner's note and agree with the documented findings and plan of care. Lung sounds are positive for diminished breath sounds with some upper airway congestion. The findings and the impression was discussed with the patient. I attest to the documentation by the nurse practitioner. Time with Patient: Greater than 30
[2020-05-11 11:41] LABS: Anisocytosis Slight; HGB 8.3 gm/dL (13.0-17.5); MCH 28.9 pg (25.0-35.0); MCHC 31.9 g/dL (31.0-37.0); MCV 90.5 fL (80.0-100.0); Mean Platelet Volume 9.4; Platelet Count 192 k/uL (150-450); RBC 2.87 m/uL (4.30-5.90); RDW 18.3 % (11.5-15.5); WBC 25.5 k/uL (3.8-10.6)
[2020-05-11 12:06] LABS: Glucose,Whole Blood 409 mg/dL (75-99)
[2020-05-11 12:17] LABS: INR 2.4 (<1.2); Prothrombin Time 22.9 sec (9.0-12.0)
[2020-05-11] MEDS ORDERED: LIDOCAINE 2%-EPI 1:100,000 20 ML VIAL ONE (14:04)
[2020-05-11] MEDS ORDERED: PROPOFOL 10 MG/ML 20 ML VIAL IV ONE (14:04)
[2020-05-11] MEDS ORDERED: IV FLUID CONTINUATION 1,000 ML IV ONE ×2 (14:04)
--- NOTE | 2020-05-11 14:28 | P.PCN ---
Date of Procedure: 05/11/20 Procedure(s) Performed: BRIEF HISTORY: Patient is a 75-year-old, pleasant, admitted to the hospital with acute GI bleed. He had multiple episodes of black tarry stools followed by maroon colored stools. He has history of A. fib and is on Coumadin. INR today is 2.4. He received 2 units of blood transfusion and vitamin K. Hemoglobin today is 8.4 g/dL. PROCEDURE PERFORMED: Esophagogastroduodenoscopy with Endo Clip placement PREOPERATIVE DIAGNOSIS: acute GI bleed. IV sedation per anesthesia. PROCEDURE: After informed consent was obtained, the patient was brought into the endoscopy unit. IV sedation was administered by Anesthesia under continuous monitoring. Initially the Olympus GIF-140 video endoscope was inserted into the mouth. Esophagus intubated without any difficulty. It was gradually advanced into the stomach and duodenum and carefully examined. The second part of the duodenum appeared normal. In the bulb of the duodenum there was fresh blood noted. Poor preparation there was a superficial ulcer with a visible vessel and active oozing. At this time will proceed with Endo Clip placements and duodenum and placed on the visible vessel with good hemostasis. The scope at this time was withdrawn to the stomach, adequately insufflated with air, and upon careful examination, mucosa of the antrum, had mild gastritis. Biopsies did not done because of coagulopathy. The body, cardia and the fundus appeared normal. The scope was then withdrawn into the esophagus. The GE junction was located at 39 cm from the incisors. The esophagus appeared normal. There were no erosions or ulcerations seen and the patient tolerated the procedure well. IMPRESSION: 1. Superficial duodenal ulcer with a visible vessel and active oozing status post Endo Clip placement with good hemostasis 2. Mild antral gastritis RECOMMENDATIONS: The findings of this examination were discussed with the patient as well as his family. He'll be continued on Protonix 40 mg twice daily. We'll start him on a clear liquid diet. Monitor CBC every 12 hours. Continue to hold Coumadin..
[2020-05-11 15:16] LABS: Anisocytosis Slight; HCT 21.8 % (39.0-53.0); Hypochromasia Moderate; MCH 29.5 pg (25.0-35.0); MCHC 32.2 g/dL (31.0-37.0); MCV 91.8 fL (80.0-100.0); Mean Platelet Volume 9.3; Platelet Count 191 k/uL (150-450); Poikilocytosis Slight; RBC 2.38 m/uL (4.30-5.90); WBC 21.1 k/uL (3.8-10.6)
--- NOTE | 2020-05-11 16:54 | XR ---
EXAMINATION TYPE: XR chest 1V DATE OF EXAM: 05/11/2020 CLINICAL HISTORY: Leukocytosis. GI bleed. TECHNIQUE: Portable upright view of the chest obtained. COMPARISON: Chest radiograph 05/10/2020 FINDINGS: The cardiomediastinal silhouette is within normal limits for size. Pulmonary vasculature i s normal. There is no focal air space opacity, pleural effusion, or pneumothorax seen. Degenerative c hanges of the acromioclavicular joints and bilateral shoulders. The osseous structures are intact. IMPRESSION: No acute cardiopulmonary process.
[2020-05-11 17:01] LABS: Glucose,Whole Blood 392 mg/dL (75-99)
[2020-05-11] MEDS: glipiZIDE 5 MG TAB PO SCH (17:01)
[2020-05-11 21:40] LABS: Glucose,Whole Blood 294 mg/dL (75-99)
[2020-05-11] MEDS: INSULIN DETEMIR (LEVEMIR) 100 UNIT/ML SYR SQ SCH (21:50)
[2020-05-12 00:16] LABS: Anisocytosis Slight; Basophils # (A) 0.1 k/uL (0-0.2); Basophils % (A) 0 %; Eosinophils % (A) 0 %; HCT 26.8 % (39.0-53.0); Lymphocytes # (A) 1.7 k/uL (1.0-4.8); Lymphocytes % (A) 7 %; MCH 29.1 pg (25.0-35.0); MCHC 32.2 g/dL (31.0-37.0); MCV 90.3 fL (80.0-100.0); Mean Platelet Volume 9.3; Monocytes # (A) 1.3 k/uL (0-1.0); Monocytes % (A) 5 %; Neutrophils % (A) 86 %; Platelet Count 176 k/uL (150-450); Poikilocytosis Slight; RBC 2.97 m/uL (4.30-5.90); RDW 17.8 % (11.5-15.5); WBC 24.5 k/uL (3.8-10.6)
[2020-05-12 00:17] LABS: HGB 8.6 gm/dL (13.0-17.5)
[2020-05-12 00:30] LABS: Basophilic Stippling Present; Poikilocytosis (M) Present; Polychromasia Present
[2020-05-12 06:45] LABS: Glucose,Whole Blood 167 mg/dL (75-99)
[2020-05-12] MEDS: INSULIN ASPART (NovoLOG) 100 UNIT/ML VIAL SQ SCH ×4 (06:54→21:33)
[2020-05-12] MEDS: glipiZIDE 5 MG TAB PO SCH ×2 (06:55→16:53)
[2020-05-12] MEDS: PANTOPRAZOLE 40 MG/10 ML VIAL IV SCH ×2 (08:29→21:32)
--- NOTE | 2020-05-12 10:01 | P.PN ---
Subjective Progress Note Date: 05/12/20 Principal diagnosis: GI bleed 75-year-old white male patient who follows at the [facility] for healthcare services presented to the emergency department on 05/10/2020 for e valuation of fatigue, generalized weakness that started the day before. Patient also reported exertional dyspnea, lightheadedness, and black stools with some bloody stools. He denied abdominal pain, denied chest pain. Patient extremely hard of hearing, and he is a poor historian. Patient is on Coumadin for history of atrial fibrillation, his INR on presentation was 3.5 he was given some vitami n K in the emergency department, his hemoglobin was 10.1, which was down 6 g from his previous hemoglobin done on 04/04/2020. BUN is 76, creatinine is 1.47, potassium 5.6, sodium is 132, proBNP was 982, and troponin was 0.030. Patient was given some IV fluids, he was being monitored on the observation unit, will yesterday in the afternoon on 05/10/2020 patient was increasingly more short of breath, he was starting to pass large black tarry bowel movements, he was moved to the intensive care unit for closer monitoring, his hemoglobin did drop to 7.3 last night, and patient was given a unit of packed red blood cells, this morning in the lumen is 7.5 and patient is receiving his second unit of packed red blood cells, Coumadin is on hold, today's INR 3.6, she was given an and 10 mg of vitamin K. He is on PPI therapy with Protonix 40 mg twice a day, he is nothing by mouth, he was evaluated by GI service and he is scheduled for EGD and colonoscopy today. Nursing reports patient being more short of breath, lung sounds are diminished, there is some upper airway congestion, but no acute d istress, his pulse ox is 100% on 2 L, he is not on any vasopressor support, his 0.9 is infusing at a rate of 120 ML per hour. No hematemesis. Patient is an ex- smoker, which is currently in remission, is very difficult to communicate with the patient is a patient is very hard of hearing. Chest x-ray shows no focal airspace opacity no pleural effusion or pneumothorax. The patient is seen today 05/12/2020 in follow-up in the intensive care unit. He is awake and alert in no acute distress. He is maintaining good O2 saturations in the 90s on 2 L/m per nasal cannula. He has a 0.9 normal saline at 120 ML's per hour. Current hemoglobin 8.6. He is status post 3 units of packed red blood cells this admission. Yesterday he had undergone EGD and required Endo Clip placement of a duodenal ulcer with visible vessel. No further black tarry stool noted through the night. White count 24.5. Platelets 176. He remains on IV Protonix twice a day. Objective - Vital Signs Vital signs: Vital Signs Temp 98.3 F 05/12/20 08:00 Pulse 104 H 05/12/20 09:00 Resp 15 05/12/20 09:00 BP 136/97 05/12/20 09:00 Pulse Ox 97 05/12/20 09:00 Intake & Output 05/11/20 05/12/20 05/12/20 18:59 06:59 18:59 Intake Total 1950 1800 860 Output Total 700 800 250 Balance 1250 1000 610 Weight 109.2 kg Intake: IV 1540 1440 360 Sodium Chloride 0.9% 1, 1440 1440 360 000 ml @ 120 mls/hr IV . Q8H20M [facility] Rx#:[id number] Oral 100 500 Blood Product 310 310 Rc As-1 Unit 0 310 [id number] Rc Pheresis 2 As3 Unit 310 [id number] Other 50 Rc As-1 Unit 50 [id number] Output: Urine 700 800 250 Other: Voiding Method Urinal Urinal Urinal # Voids 1 # Bowel Movements 2 - Constitutional Constitutional Comment(s): GENERAL EXAM: Awake, alert very pleasant 75-year-old male patient, resting comfortably in bed, he does have some upper airway congestion, on room air with O2 saturation 94%, is very hard of hearing which makes it very difficult to communicate with him, comfortable in no apparent distress. HEAD: Normocephalic/atraumatic. EYES: Normal reaction of pupils, equal size. Conjunctiva pink, sclera white. NOSE: Clear with pink turbinates. THROAT: No erythema or exudates. NECK: No masses, no JVD, no thyroid enlargement, no adenopathy. CHEST: No chest wall deformity. Symmetrical expansion. LUNGS: Equal air entry with no crackles, wheeze, rhonchi or dullness. CVS: Irregular rate and rhythm, normal S1 and S2, no gallops, no murmurs, no rubs ABDOMEN: Soft, nontender. No hepatosplenomegaly, normal bowel sounds, no guarding or rigidity. EXTREMITIES: No clubbing, no edema, no cyanosis, 2+ pulses and upper and lower extremities. MUSCULOSKELETAL: Muscle strength and tone normal. SPINE: No scoliosis or deformity SKIN: No rashes CENTRAL NERVOUS SYSTEM: No focal deficits, tone is normal in all 4 extremities. PSYCHIATRIC: Alert and oriented -3. Appropriate affect. Intact judgment and insight. - Labs CBC & Chem 7: 05/11/20 23:26 05/11/20 06:17 Labs: Abnormal Lab Results - Last 24 Hours (Table) 05/10/20 05/11/20 05/11/20 Range/Units 10:23 11:25 11:53 WBC 25.5 H (3.8-10.6) k/uL RBC 2.87 L (4.30-5.90) m/uL Hgb 8.3 L (13.0-17.5) gm/dL Hct 26.0 L (39.0-53.0) % RDW 18.3 H (11.5-15.5) % Neutrophils # (1.3-7.7) k/uL Monocytes # (0-1.0) k/uL PT 22.9 H (9.0-12.0) sec INR 2.4 H (<1.2) POC Glucose (mg/dL) (75-99) mg/dL Crossmatch See Detail 05/11/20 05/11/20 05/11/20 Range/Units 12:04 14:48 17:00 WBC 21.1 H (3.8-10.6) k/uL RBC 2.38 L (4.30-5.90) m/uL Hgb 7.0 L (13.0-17.5) gm/dL Hct 21.8 L (39.0-53.0) % RDW 18.0 H (11.5-15.5) % Neutrophils # (1.3-7.7) k/uL Monocytes # (0-1.0) k/uL PT (9.0-12.0) sec INR (<1.2) POC Glucose (mg/dL) 409 H 392 H (75-99) mg/dL Crossmatch 05/11/20 05/11/20 05/12/20 Range/Units 21:37 23:26 06:43 WBC 24.5 H (3.8-10.6) k/uL RBC 2.97 L (4.30-5.90) m/uL Hgb 8.6 L D (13.0-17.5) gm/dL Hct 26.8 L (39.0-53.0) % RDW 17.8 H (11.5-15.5) % Neutrophils # 21.0 H (1.3-7.7) k/uL Monocytes # 1.3 H (0-1.0) k/uL PT (9.0-12.0) sec INR (<1.2) POC Glucose (mg/dL) 294 H 167 H (75-99) mg/dL Crossmatch Assessment and Plan Assessment: #1. Acute GI blood loss anemia, symptomatic, requiring transfusion with 3 units of packed red blood cells. EGD on 05/11/2020 revealed a superficial duodenal ulcer with visible vessel and active oozing status post Endo Clip placement with good hemostasis. Mild antral gastritis. #2. Weakness, lightheadedness, fatigue, shortness of breath and black tarry stools related to the above #3. Mild coagulopathy related to Coumadin therapy for chronic A. fib, patient received 2 doses of vitamin K, INR is 3.6 #4. Chronic atrial fibrillation, on Coumadin #5. Hard of hearing #6. Leukocytosis #7. Acute kidney injury related to acute blood loss anemia #8. Hyponatremia, possibly hypovolemic, mild, with serum sodium of 130 #9. Diabetes mellitus #10. History of right nephrectomy for benign tumor #11. Former smoker Plan: The patient was seen and evaluated by Dr. Baumann He is currently stable from the pulmonary critical care standpoint Transfer out of the ICU today Continue to monitor hemoglobin We'll continue to follow I, the cosigning physician, performed a history & physical examination of the patient. Lungs sounds are clear. Maintaining good O2 saturations in the 90s on room air. I discussed the assessment and plan of care with my nurse practitioner, Stacey Goodrich. I attest to the above note as dictated by her.
[2020-05-12] MEDS: SODIUM CHLORIDE 0.9% 1,000 ML IV SCH ×2 (10:51→18:23)
[2020-05-12 11:38] LABS: Glucose,Whole Blood 131 mg/dL (75-99)
[2020-05-12 16:47] LABS: Glucose,Whole Blood 141 mg/dL (75-99)
--- NOTE | 2020-05-12 20:44 | PN ---
PROGRESS NOTE DATE OF SERVICE: May 12, 2020 Patient is a 75-year-old pleasant white male admitted to the hospital with acute GI bleed. He had an upper endoscopy done yesterday that showed an actively bleeding duodenal bulbar ulcer. He underwent Endoclip placement. Currently, Coumadin is on hold. He has no further episodes of bleeding. No abdominal pain. No nausea, vomiting. PHYSICAL EXAMINATION: Appears comfortable, no apparent distress. Vital signs stable. Blood pressure 137/89, pulse rate 94, temperature is 98.2. HEENT examination unremarkable. Conjunctivae pink. Sclerae anicteric. Oral cavity no lesions. NECK: No JVD or lymph node enlargement. CHEST was clear to auscultation. HEART: Regular rate and rhythm. ABDOMEN: Soft. Bowel sounds are positive. No organomegaly. EXTREMITIES: No pedal edema. NEURO: He is alert and oriented x3. No focal deficits. LABS: WBC 24.5, hemoglobin 8.6, platelets 176. BUN and creatinine 80 and 1.55 respectively. IMPRESSION: 1. Acute upper gastrointestinal bleed status post EGD yesterday that showed actively bleeding duodenal ulcer, status post Endoclip placement with good hemostasis. The patient had no further episodes of bleeding, status post total of 3 units of PRBC transfusion. Last hemoglobin is 8.6 g/dL. 2. History of atrial fibrillation on Coumadin, currently on hold. 3. Acute kidney injury. 4. Hypokalemia and hyponatremia gradually improving. RECOMMENDATIONS: 1. Continue with Protonix 40 mg twice daily. 2. Advance to full liquid diet. 3. Monitor CBC on a daily basis. 4. Continue to hold Coumadin. 5. We will follow with you closely. Thank you for this consultation. MMODL / IJN: [id number] /
[2020-05-12 21:31] LABS: Glucose,Whole Blood 159 mg/dL (75-99)
[2020-05-12] MEDS: INSULIN DETEMIR (LEVEMIR) 100 UNIT/ML SYR SQ SCH (21:32)
--- NOTE | 2020-05-12 23:24 | P.PN ---
Subjective Progress Note Date: 05/11/20 Principal diagnosis: Acute GI bleed. Patient is 74-year-old male with a known history of diabetes type 2, history of a right nephrectomy for benign tumor, varicose veins, chronic atrial fibrillation on anticoagulation with Coumadin and previous history of smoking as well as underlying cognitive impairment presents to ER with the complaints of generalized weakness and fatigue. Patient had a bowel movement with black stool this morning. Patient was also having exertional dyspnea. Denied any complaints of chest pain. Does feel lightheaded as well. No complaints of abdominal pain. Denied any episodes of vomiting. Denied any nausea currently. Patient was found to have hemoglobin level 10.1 admission. Patient was admitted to the hospital with GI consultation. When he reaches the medical floor patient did have a large bowel movement with maroon color stool and bright red blood as well. Patient felt more weak and was diaphoretic. Repeat Hemoglobin did drop to 9.1. Contacted critical care team for possible transfer to medical intensive care unit. Laboratory data showed WBC 10.9, hemoglobin 10.1, RDW 16.8 and platelets 192 INR is 3.5 Sodium 132, potassium 5.6 and bicarb 19 BUN 76 and creatinine 1.47 CBG 340 Urinalysis is negative for infection Patient is a poor historian. 05/11/2020 Patient is currently sitting in the chair comfortably. Awake alert and oriented. Status post EGD showed superficial duodenal ulcer with a visible vessel and active oozing status post Endo Clip placement with good hemostasis. Mild antral gastritis. Patient is being continued on tonics IV twice daily. Was started on clear liquid diet. Humira Coumadin is on hold. Hemoglobin is 8.6 today. Current Medications reviewed. Objective - Vital Signs Vital signs: Vital Signs Temp 98.5 F 05/11/20 12:00 Pulse 92 05/11/20 15:00 Resp 22 05/11/20 15:00 BP 113/54 05/11/20 15:00 Pulse Ox 100 05/11/20 15:00 Intake & Output 05/10/20 05/11/20 05/11/20 18:59 06:59 18:59 Intake Total 840 2660 1590 Output Total 400 300 500 Balance 440 2360 1090 Weight 107.955 kg 107.8 kg Intake: IV 240 1440 1180 Sodium Chloride 0.9% 1, 240 1440 1080 000 ml @ 120 mls/hr IV . Q8H20M [facility] Rx#:[id number] Oral 600 600 100 Blood Product 620 310 Rc Pheresis 2 As3 Unit 310 [id number] Rc Pheresis As-3 Unit 310 [id number] Output: Urine 400 300 500 Other: Voiding Method Urinal Urinal Urinal # Voids 1 # Bowel Movements 1 1 1 - Exam PHYSICAL EXAMINATION: Patient is lying in the bed comfortably, no acute distress, awake alert and oriented. HEENT: Normocephalic. Neck is supple. Pupils reactive. Nostrils clear. Oral cavity is moist. Ears reveal no drainage. Neck reveals no JVD, carotid bruits, or thyromegaly. CHEST EXAMINATION: Trachea is central. Symmetrical expansion. Bibasilar diminished air entry. Lung mccall clear to auscultation and percussion. CARDIAC: Normal S1, S2 with no gallops. No murmurs ABDOMEN: Soft. Nontender. Mild distention. Bowel sounds normal. No organomegaly. No abdominal bruits. Extremities: reveal no edema. No clubbing or cyanosis Neurologically awake, alert, oriented x2-3 with well-coordinated movements. H eart of hearing. No focal deficits noted Skin: No rash or skin lesions. Psychiatric: Coperative. Could not be assessed completely Musculoskeletal: No joint swelling or deformity. Normal range of motion. - Labs CBC & Chem 7: 05/11/20 23:26 05/11/20 06:17 Labs: Abnormal Lab Results - Last 24 Hours (Table) 05/10/20 05/10/20 05/10/20 Range/Units 10:23 17:39 21:42 WBC 15.4 H (3.8-10.6) k/uL RBC 2.66 L (4.30-5.90) m/uL Hgb 7.3 L D (13.0-17.5) gm/dL Hct 22.7 L (39.0-53.0) % RDW 17.4 H (11.5-15.5) % Neutrophils # (1.3-7.7) k/uL PT (9.0-12.0) sec INR (<1.2) Sodium (137-145) mmol/L Potassium (3.5-5.1) mmol/L Carbon Dioxide (22-30) mmol/L BUN (9-20) mg/dL Creatinine (0.66-1.25) mg/dL Glucose (74-99) mg/dL POC Glucose (mg/dL) 329 H (75-99) mg/dL Calcium (8.4-10.2) mg/dL Crossmatch See Detail 05/10/20 05/11/20 05/11/20 Range/Units 21:42 00:13 05:57 WBC (3.8-10.6) k/uL RBC (4.30-5.90) m/uL Hgb (13.0-17.5) gm/dL Hct (39.0-53.0) % RDW (11.5-15.5) % Neutrophils # (1.3-7.7) k/uL PT (9.0-12.0) sec INR (<1.2) Sodium 130 L (137-145) mmol/L Potassium (3.5-5.1) mmol/L Carbon Dioxide 12 L (22-30) mmol/L BUN 80 H (9-20) mg/dL Creatinine 1.48 H (0.66-1.25) mg/dL Glucose 315 H (74-99) mg/dL POC Glucose (mg/dL) 354 H 370 H (75-99) mg/dL Calcium 8.0 L (8.4-10.2) mg/dL Crossmatch 05/11/20 05/11/20 05/11/20 Range/Units 06:17 06:17 06:17 WBC 18.6 H (3.8-10.6) k/uL RBC 2.60 L (4.30-5.90) m/uL Hgb 7.5 L (13.0-17.5) gm/dL Hct 23.0 L (39.0-53.0) % RDW 18.1 H (11.5-15.5) % Neutrophils # 15.7 H (1.3-7.7) k/uL PT 35.7 H (9.0-12.0) sec INR 3.6 H (<1.2) Sodium 131 L (137-145) mmol/L Potassium 5.3 H (3.5-5.1) mmol/L Carbon Dioxide 12 L (22-30) mmol/L BUN 80 H (9-20) mg/dL Creatinine 1.55 H (0.66-1.25) mg/dL Glucose 321 H (74-99) mg/dL POC Glucose (mg/dL) (75-99) mg/dL Calcium 7.6 L (8.4-10.2) mg/dL Crossmatch 05/11/20 05/11/20 05/11/20 Range/Units 11:25 11:53 12:04 WBC 25.5 H (3.8-10.6) k/uL RBC 2.87 L (4.30-5.90) m/uL Hgb 8.3 L (13.0-17.5) gm/dL Hct 26.0 L (39.0-53.0) % RDW 18.3 H (11.5-15.5) % Neutrophils # (1.3-7.7) k/uL PT 22.9 H (9.0-12.0) sec INR 2.4 H (<1.2) Sodium (137-145) mmol/L Potassium (3.5-5.1) mmol/L Carbon Dioxide (22-30) mmol/L BUN (9-20) mg/dL Creatinine (0.66-1.25) mg/dL Glucose (74-99) mg/dL POC Glucose (mg/dL) 409 H (75-99) mg/dL Calcium (8.4-10.2) mg/dL Crossmatch 05/11/20 Range/Units 14:48 WBC 21.1 H (3.8-10.6) k/uL RBC 2.38 L (4.30-5.90) m/uL Hgb 7.0 L (13.0-17.5) gm/dL Hct 21.8 L (39.0-53.0) % RDW 18.0 H (11.5-15.5) % Neutrophils # (1.3-7.7) k/uL PT (9.0-12.0) sec INR (<1.2) Sodium (137-145) mmol/L Potassium (3.5-5.1) mmol/L Carbon Dioxide (22-30) mmol/L BUN (9-20) mg/dL Creatinine (0.66-1.25) mg/dL Glucose (74-99) mg/dL POC Glucose (mg/dL) (75-99) mg/dL Calcium (8.4-10.2) mg/dL Crossmatch Assessment and Plan Assessment: Symptomatic anemia Acute blood loss anemia secondary to GI bleed. Patient is status post 3 units of PRBC blood transfusion. EGD showed duodenal ulcer and was in blood vessel. Chronic atrial fibrillation on anticoagulation with Coumadin Diabetes type 2 with hyperglycemia uncontrolled. 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 Previous history of smoking DVT prophylaxis with SCDs plan: Patient will be continued on IV hydration and monitor H&H closely. Continue with Protonix IV. Gastroenterology is following.. Transfusion if the hemoglobin is less than 7. Monitor INR level. Coumadin on hold. Prognosis is guarded with multiple medical problems and comorbid conditions. Time with Patient: Greater than 30
--- NOTE | 2020-05-12 23:25 | P.PN ---
Subjective Progress Note Date: 05/12/20 Principal diagnosis: Acute GI bleed. Patient is 74-year-old male with a known history of diabetes type 2, history of a right nephrectomy for benign tumor, varicose veins, chronic atrial fibrillation on anticoagulation with Coumadin and previous history of smoking as well as underlying cognitive impairment presents to ER with the complaints of generalized weakness and fatigue. Patient had a bowel movement with black stool this morning. Patient was also having exertional dyspnea. Denied any complaints of chest pain. Does feel lightheaded as well. No complaints of abdominal pain. Denied any episodes of vomiting. Denied any nausea currently. Patient was found to have hemoglobin level 10.1 admission. Patient was admitted to the hospital with GI consultation. When he reaches the medical floor patient did have a large bowel movement with maroon color stool and bright red blood as well. Patient felt more weak and was diaphoretic. Repeat Hemoglobin did drop to 9.1. Contacted critical care team for possible transfer to medical intensive care unit. Laboratory data showed WBC 10.9, hemoglobin 10.1, RDW 16.8 and platelets 192 INR is 3.5 Sodium 132, potassium 5.6 and bicarb 19 BUN 76 and creatinine 1.47 CBG 340 Urinalysis is negative for infection Patient is a poor historian. 05/11/2020 Patient is currently sitting in the chair comfortably. Awake alert and oriented. Status post EGD showed superficial duodenal ulcer with a visible vessel and active oozing status post Endo Clip placement with good hemostasis. Mild antral gastritis. Patient is being continued on tonics IV twice daily. Was started on clear liquid diet. Humira Coumadin is on hold. Hemoglobin is 8.6 today. 05/12/2020 Patient is currently in the MICU. Awake alert and oriented x3. Patient is status post 3 units of PRBC due to acute GI bleed. Status post EGD on 05/11/2020 found to have duodenal ulcer and visible oozing blood vessel status post Endo Clip. Denied any complaints of dark-colored stools today. Patient otherwise feels better. No complaints of chest pain worsening shortness of breath. No leg swelling. No nausea vomiting or diarrhea. Tolerating oral diet. GI and pulmonary is on board. Current Medications reviewed. Objective - Vital Signs Vital signs: Vital Signs Temp 98.2 F 05/12/20 20:00 Pulse 96 05/12/20 22:00 Resp 22 05/12/20 22:00 BP 116/60 05/12/20 22:00 Pulse Ox 98 05/12/20 22:00 Intake & Output 05/12/20 05/12/20 05/13/20 06:59 18:59 06:59 Intake Total 1800 2690 480 Output Total 800 1050 580 Balance 1000 1640 -100 Weight 109.2 kg Intake: IV 1440 1440 480 Sodium Chloride 0.9% 1, 1440 1440 480 000 ml @ 120 mls/hr IV . Q8H20M [facility] Rx#:[id number] Oral 1250 Blood Product 310 Rc As-1 Unit 310 [id number] Other 50 Rc As-1 Unit 50 [id number] Output: Urine 800 1050 580 Other: Voiding Method Urinal Urinal Urinal - Exam PHYSICAL EXAMINATION: Patient is lying in the bed comfortably, no acute distress, awake alert and oriented. HEENT: Normocephalic. Neck is supple. Pupils reactive. Nostrils clear. Oral cavity is moist. Ears reveal no drainage. Neck reveals no JVD, carotid bruits, or thyromegaly. CHEST EXAMINATION: Trachea is central. Symmetrical expansion. Bibasilar diminished air entry. Lung mccall clear to auscultation and percussion. CARDIAC: Normal S1, S2 with no gallops. No murmurs ABDOMEN: Soft. Nontender. Mild distention. Bowel sounds normal. No organomegaly. No abdominal bruits. Extremities: reveal no edema. No clubbing or cyanosis Neurologically awake, alert, oriented x2-3 with well-coordinated movements. Heart of hearing. No focal deficits noted Skin: No rash or skin lesions. Psychiatric: Coperative. Could not be assessed completely Musculoskeletal: No joint swelling or deformity. Normal range of motion. - Labs CBC & Chem 7: 05/11/20 23:26 05/11/20 06:17 Labs: Abnormal Lab Results - Last 24 Hours (Table) 05/11/20 05/12/20 05/12/20 Range/Units 23:26 06:43 11:37 WBC 24.5 H (3.8-10.6) k/uL RBC 2.97 L (4.30-5.90) m/uL Hgb 8.6 L D (13.0-17.5) gm/dL Hct 26.8 L (39.0-53.0) % RDW 17.8 H (11.5-15.5) % Neutrophils # 21.0 H (1.3-7.7) k/uL Monocytes # 1.3 H (0-1.0) k/uL POC Glucose (mg/dL) 167 H 131 H (75-99) mg/dL 05/12/20 05/12/20 Range/Units 16:45 21:28 WBC (3.8-10.6) k/uL RBC (4.30-5.90) m/uL Hgb (13.0-17.5) gm/dL Hct (39.0-53.0) % RDW (11.5-15.5) % Neutrophils # (1.3-7.7) k/uL Monocytes # (0-1.0) k/uL POC Glucose (mg/dL) 141 H 159 H (75-99) mg/dL Assessment and Plan Assessment: Symptomatic anemia Acute blood loss anemia secondary to GI bleed. Patient is status post 3 units of PRBC blood transfusion. EGD showed duodenal ulcer and was in blood vessel. Chronic atrial fibrillation on anticoagulation with Coumadin Diabetes type 2 with hyperglycemia uncontrolled. 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 Previous history of smoking DVT prophylaxis with SCDs plan: Patient will be continued on IV hydration and monitor H&H closely. Continue with Protonix IV. Gastroenterology is following.. Transfusion if the hemoglobi n is less than 7. Monitor INR level. Coumadin on hold. Prognosis is guarded with multiple medical problems and comorbid conditions. Time with Patient: Greater than 30
[2020-05-13 05:57] LABS: Anisocytosis Slight; Basophils % (A) 0 %; Eosinophils # (A) 0.1 k/uL (0-0.7); Eosinophils % (A) 1 %; HCT 20.3 % (39.0-53.0); Lymphocytes # (A) 1.5 k/uL (1.0-4.8); Lymphocytes % (A) 9 %; MCH 29.7 pg (25.0-35.0); MCHC 32.9 g/dL (31.0-37.0); MCV 90.2 fL (80.0-100.0); Mean Platelet Volume 8.4; Monocytes # (A) 0.9 k/uL (0-1.0); Monocytes % (A) 5 %; Neutrophils # (A) 13.7 k/uL (1.3-7.7); Neutrophils % (A) 83 %; Platelet Count 164 k/uL (150-450); Poikilocytosis Slight; RBC 2.25 m/uL (4.30-5.90); RDW 19.3 % (11.5-15.5); WBC 16.5 k/uL (3.8-10.6)
[2020-05-13 06:10] LABS: HGB 6.7 gm/dL (13.0-17.5)
[2020-05-13 06:19] LABS: Calcium 7.1 mg/dL (8.4-10.2); Potassium 4.6 mmol/L (3.5-5.1)
[2020-05-13 06:48] LABS: Glucose,Whole Blood 140 mg/dL (75-99)
[2020-05-13] MEDS: glipiZIDE 5 MG TAB PO SCH ×2 (06:54→16:35)
[2020-05-13] MEDS: SODIUM CHLORIDE 0.9% 1,000 ML IV SCH ×2 (06:54→07:02)
[2020-05-13] MEDS: INSULIN ASPART (NovoLOG) 100 UNIT/ML VIAL SQ SCH ×4 (06:55→21:08)
[2020-05-13] MEDS: PANTOPRAZOLE 40 MG/10 ML VIAL IV SCH ×2 (08:31→21:08)
[2020-05-13] MEDS ORDERED: FUROSEMIDE 10 MG/ML 4 ML VIAL IV STA (09:50)
[2020-05-13 11:18] LABS: Glucose,Whole Blood 134 mg/dL (75-99)
--- NOTE | 2020-05-13 12:22 | P.PN ---
Subjective Progress Note Date: 05/13/20 Principal diagnosis: GI bleed 75-year-old white male patient who follows at the [facility] for healthcare services presented to the emergency department on 05/10/2020 for e valuation of fatigue, generalized weakness that started the day before. Patient also reported exertional dyspnea, lightheadedness, and black stools with some bloody stools. He denied abdominal pain, denied chest pain. Patient extremely hard of hearing, and he is a poor historian. Patient is on Coumadin for history of atrial fibrillation, his INR on presentation was 3.5 he was given some vitami n K in the emergency department, his hemoglobin was 10.1, which was down 6 g from his previous hemoglobin done on 04/04/2020. BUN is 76, creatinine is 1.47, potassium 5.6, sodium is 132, proBNP was 982, and troponin was 0.030. Patient was given some IV fluids, he was being monitored on the observation unit, will yesterday in the afternoon on 05/10/2020 patient was increasingly more short of breath, he was starting to pass large black tarry bowel movements, he was moved to the intensive care unit for closer monitoring, his hemoglobin did drop to 7.3 last night, and patient was given a unit of packed red blood cells, this morning in the lumen is 7.5 and patient is receiving his second unit of packed red blood cells, Coumadin is on hold, today's INR 3.6, she was given an and 10 mg of vitamin K. He is on PPI therapy with Protonix 40 mg twice a day, he is nothing by mouth, he was evaluated by GI service and he is scheduled for EGD and colonoscopy today. Nursing reports patient being more short of breath, lung sounds are diminished, there is some upper airway congestion, but no acute d istress, his pulse ox is 100% on 2 L, he is not on any vasopressor support, his 0.9 is infusing at a rate of 120 ML per hour. No hematemesis. Patient is an ex- smoker, which is currently in remission, is very difficult to communicate with the patient is a patient is very hard of hearing. Chest x-ray shows no focal airspace opacity no pleural effusion or pneumothorax. The patient is seen today 05/12/2020 in follow-up in the intensive care unit. He is awake and alert in no acute distress. He is maintaining good O2 saturations in the 90s on 2 L/m per nasal cannula. He has a 0.9 normal saline at 120 ML's per hour. Current hemoglobin 8.6. He is status post 3 units of packed red blood cells this admission. Yesterday he had undergone EGD and required Endo Clip placement of a duodenal ulcer with visible vessel. No further black tarry stool noted through the night. White count 24.5. Platelets 176. He remains on IV Protonix twice a day. The patient is seen today 05/13/2020 in follow-up in the intensive care unit. He remains awake and alert in no acute distress. Resting quite comfortably in bed. Maintaining O2 saturations in the 90s on room air. No further active bleeding though the patient's hemoglobin today is 6.7. He is receiving his fourth unit of packed red blood cells this admission. He does have ongoing peripheral edema. We'll discontinue IV fluids. Given Lasix 40 mg IVP 1. Lasix 20 twice a day starting tomorrow. Objective - Vital Signs Vital signs: Vital Signs Temp 98.1 F 05/13/20 10:28 Pulse 93 05/13/20 10:28 Resp 16 05/13/20 10:28 BP 125/61 05/13/20 10:28 Pulse Ox 100 05/13/20 09:00 Intake & Output 05/12/20 05/13/20 05/13/20 18:59 06:59 18:59 Intake Total 2690 1440 1170 Output Total 1607 356 2800 Balance 1640 485 -255 Weight 111.6 kg Intake: IV 1440 1440 360 Sodium Chloride 0.9% 1, 1440 1440 360 000 ml @ 120 mls/hr IV . Q8H20M [facility] Rx#:[id number] Oral 1250 500 Blood Product 310 Rc As-1 Unit 310 [id number] Output: Urine 5922 658 7615 Other: Voiding Method Urinal Urinal Urinal # Voids 1 - Exam GENERAL EXAM: Awake, alert very pleasant 75-year-old male patient, resting comfortably in bed, on room air with O2 saturation in the 90s, is very hard of hearing which makes it very difficult to communicate with him. HEAD: Normocephalic/atraumatic. EYES: Normal reaction of pupils, equal size. Conjunctiva pink, sclera white. NOSE: Clear with pink turbinates. THROAT: No erythema or exudates. NECK: No masses, no JVD, no thyroid enlargement, no adenopathy. CHEST: No chest wall deformity. Symmetrical expansion. LUNGS: Equal air entry with no crackles, wheeze, rhonchi or dullness. CVS: Irregular rate and rhythm, normal S1 and S2, no gallops, no murmurs, no rubs ABDOMEN: Soft, nontender. No hepatosplenomegaly, normal bowel sounds, no guarding or rigidity. EXTREMITIES: No clubbing, no edema, no cyanosis, 2+ pulses and upper and lower extremities. MUSCULOSKELETAL: Muscle strength and tone normal. SPINE: No scoliosis or deformity SKIN: No rashes CENTRAL NERVOUS SYSTEM: No focal deficits, tone is normal in all 4 extremities. PSYCHIATRIC: Alert and oriented -3. Appropriate affect. Intact judgment and insight. - Labs CBC & Chem 7: 05/13/20 05:30 05/13/20 05:30 Labs: Abnormal Lab Results - Last 24 Hours (Table) 05/10/20 05/12/20 05/12/20 Range/Units 10:23 16:45 21:28 WBC (3.8-10.6) k/uL RBC (4.30-5.90) m/uL Hgb (13.0-17.5) gm/dL Hct (39.0-53.0) % RDW (11.5-15.5) % Neutrophils # (1.3-7.7) k/uL Sodium (137-145) mmol/L Chloride (98-107) mmol/L Carbon Dioxide (22-30) mmol/L BUN (9-20) mg/dL Creatinine (0.66-1.25) mg/dL POC Glucose (mg/dL) 141 H 159 H (75-99) mg/dL Calcium (8.4-10.2) mg/dL Crossmatch See Detail 05/13/20 05/13/20 05/13/20 Range/Units 05:30 05:30 06:46 WBC 16.5 H (3.8-10.6) k/uL RBC 2.25 L (4.30-5.90) m/uL Hgb 6.7 L* D (13.0-17.5) gm/dL Hct 20.3 L (39.0-53.0) % RDW 19.3 H (11.5-15.5) % Neutrophils # 13.7 H (1.3-7.7) k/uL Sodium 136 L (137-145) mmol/L Chloride 114 H (98-107) mmol/L Carbon Dioxide 18 L (22-30) mmol/L BUN 54 H (9-20) mg/dL Creatinine 1.37 H (0.66-1.25) mg/dL POC Glucose (mg/dL) 140 H (75-99) mg/dL Calcium 7.1 L (8.4-10.2) mg/dL Crossmatch 05/13/20 Range/Units 11:17 WBC (3.8-10.6) k/uL RBC (4.30-5.90) m/uL Hgb (13.0-17.5) gm/dL Hct (39.0-53.0) % RDW (11.5-15.5) % Neutrophils # (1.3-7.7) k/uL Sodium (137-145) mmol/L Chloride (98-107) mmol/L Carbon Dioxide (22-30) mmol/L BUN (9-20) mg/dL Creatinine (0.66-1.25) mg/dL POC Glucose (mg/dL) 134 H (75-99) mg/dL Calcium (8.4-10.2) mg/dL Crossmatch Assessment and Plan Assessment: #1. Acute GI blood loss anemia, symptomatic, requiring transfusion with 3 units of packed red blood cells. EGD on 05/11/2020 revealed a superficial duodenal ulcer with visible vessel and active oozing status post Endo Clip placement with good hemostasis. Mild antral gastritis. Hemoglobin today 05/13/2020 was 6.7. Receiving a fourth unit of packed red blood cells. #2. Weakness, lightheadedness, fatigue, shortness of breath and black tarry stools related to the above #3. Mild coagulopathy related to Coumadin therapy for chronic A. fib, patient received 2 doses of vitamin K, INR is 3.6 #4. Chronic atrial fibrillation, on Coumadin #5. Hard of hearing #6. Leukocytosis #7. Acute kidney injury related to acute blood loss anemia #8. Hyponatremia, possibly hypovolemic, mild, with serum sodium of 130 #9. Diabetes mellitus #10. History of right nephrectomy for benign tumor #11. Former smoker Plan: The patient was seen and evaluated by Dr. Baumann He is given a dose of Lasix 40 mg IVP 1 Initiate Lasix 20 mg twice a day tomorrow Transfer out of the ICU today Continue to monitor hemoglobin We'll continue to follow I, the cosigning physician, performed a history & physical examination of the patient. Lungs sounds are clear. Maintaining good O2 saturations in the 90s on room air. I discussed the assessment and plan of care with my nurse practitioner, Stacey Goodrich. I attest to the above note as dictated by her.
--- NOTE | 2020-05-13 15:39 | PN ---
PROGRESS NOTE DATE OF SERVICE: 05/13/2020 The patient is a 75-year-old pleasant white male admitted to the hospital with acute GI bleed. He underwent an upper endoscopy three days ago and was noted to have a duodenal ulcer with bleeding and Endo clip was placed. He received total of 2 units of PRBC transfusion this morning, he dropped his hemoglobin to 6.7 and was given his fourth unit of blood transfusion. He denies any symptoms. No active bleeding noted. PHYSICAL EXAMINATION: Appears comfortable in no apparent distress. Vital signs stable. Blood pressure is 132/75, pulse rate 103, temperature 98.1. HEENT examination unremarkable. Conjunctivae pink. Sclerae anicteric. Oral cavity no lesions. NECK: No JVD. No lymph node enlargement. CHEST: Clear to auscultation. HEART: Regular rate and rhythm. ABDOMEN: Soft. Bowel sounds are positive. No organomegaly. EXTREMITIES: No pedal edema. SKIN no rashes. NEUROLOGIC: Alert and oriented x3. No focal deficits. LABS: WBC 16.5, hemoglobin 6.7, platelets normal. Basic metabolic panel is within normal limits. BUN and creatinine are 54 and 1.37. IMPRESSION: 1. Acute upper gastrointestinal bleed, status post EGD 4 days ago with bulbar ulcer with visible vessel status post Endoclip placement. The patient has no active bleeding. Hemoglobin dropped to 6.7, he was given his fourth unit of blood transfusion today. He remains hemodynamically stable. No active bleeding. 2. Elevated BUN and creatinine, possible acute kidney injury. 3. History of atrial fibrillation on Coumadin, currently on hold. RECOMMENDATIONS: 1. Continue with Protonix 40 mg twice daily. 2. Continue to hold Coumadin. 3. Advance diet as tolerated. 4. He can be discharged to the floor. 5. Monitor CBC daily. Thank you for this consultation. MMODL / IJN: [id number] /
[2020-05-13 16:34] LABS: Glucose,Whole Blood 99 mg/dL (75-99)
[2020-05-13 21:03] LABS: Glucose,Whole Blood 114 mg/dL (75-99)
[2020-05-13] MEDS: INSULIN DETEMIR (LEVEMIR) 100 UNIT/ML SYR SQ SCH (21:08)
--- NOTE | 2020-05-13 23:10 | P.PN ---
Subjective Progress Note Date: 05/13/20 Principal diagnosis: Acute GI bleed. Patient is 74-year-old male with a known history of diabetes type 2, history of a right nephrectomy for benign tumor, varicose veins, chronic atrial fibrillation on anticoagulation with Coumadin and previous history of smoking as well as underlying cognitive impairment presents to ER with the complaints of generalized weakness and fatigue. Patient had a bowel movement with black stool this morning. Patient was also having exertional dyspnea. Denied any complaints of chest pain. Does feel lightheaded as well. No complaints of abdominal pain. Denied any episodes of vomiting. Denied any nausea currently. Patient was found to have hemoglobin level 10.1 admission. Patient was admitted to the hospital with GI consultation. When he reaches the medical floor patient did have a large bowel movement with maroon color stool and bright red blood as well. Patient felt more weak and was diaphoretic. Repeat Hemoglobin did drop to 9.1. Contacted critical care team for possible transfer to medical intensive care unit. Laboratory data showed WBC 10.9, hemoglobin 10.1, RDW 16.8 and platelets 192 INR is 3.5 Sodium 132, potassium 5.6 and bicarb 19 BUN 76 and creatinine 1.47 CBG 340 Urinalysis is negative for infection Patient is a poor historian. 05/11/2020 Patient is currently sitting in the chair comfortably. Awake alert and oriented. Status post EGD showed superficial duodenal ulcer with a visible vessel and active oozing status post Endo Clip placement with good hemostasis. Mild antral gastritis. Patient is being continued on tonics IV twice daily. Was started on clear liquid diet. Humira Coumadin is on hold. Hemoglobin is 8.6 today. 05/12/2020 Patient is currently in the MICU. Awake alert and oriented x3. Patient is status post 3 units of PRBC due to acute GI bleed. Status post EGD on 05/11/2020 found to have duodenal ulcer and visible oozing blood vessel status post Endo Clip. Denied any complaints of dark-colored stools today. Patient otherwise feels better. No complaints of chest pain worsening shortness of breath. No leg swelling. No nausea vomiting or diarrhea. Tolerating oral diet. GI and pulmonary is on board. 05/13/2020 Patient was admitted to hospital with GI bleed, status post EGD. Patient is currently sitting outside comfortably. Awake alert oriented x3. No complaints of chest pain or shortness breath. Hemoglobin did drop to 6.7 today. Patient was transfused with 1 unit of PRBC today. Total of 4 units during this admission. Patient was given IV Lasix due to peripheral edema and continued on Protonix. Patient is being transferred to medical floor today. GI and pulmonary is following. Current Medications reviewed. Objective - Vital Signs Vital signs: Vital Signs Temp 97.8 F 05/13/20 16:00 Pulse 97 05/13/20 16:00 Resp 18 05/13/20 16:00 BP 125/69 05/13/20 16:00 Pulse Ox 97 05/13/20 16:00 Intake & Output 05/13/20 05/13/20 05/14/20 06:59 18:59 06:59 Intake Total 1440 1820 250 Output Total 955 2575 200 Balance 485 -755 50 Weight 111.6 kg Intake: IV 1440 360 Sodium Chloride 0.9% 1, 1440 360 000 ml @ 120 mls/hr IV . Q8H20M [facility] Rx#:[id number] Oral 1150 250 Blood Product 310 Rc As-1 Unit 310 [id number] Output: Urine 955 2575 200 Other: Voiding Method Urinal Urinal # Voids 1 - Exam PHYSICAL EXAMINATION: Patient is lying in the bed comfortably, no acute distress, awake alert and oriented. HEENT: Normocephalic. Neck is supple. Pupils reactive. Nostrils clear. Oral cavity is moist. Ears reveal no drainage. Neck reveals no JVD, carotid bruits, or thyromegaly. CHEST EXAMINATION: Trachea is central. Symmetrical expansion. Bibasilar diminished air entry. Lung mccall clear to auscultation and percussion. CARDIAC: Normal S1, S2 with no gallops. No murmurs ABDOMEN: Soft. Nontender. Mild distention. Bowel sounds normal. No organomegaly. No abdominal bruits. Extremities: 2+ edema. No clubbing or cyanosis Neurologically awake, alert, oriented x2-3 with well-coordinated movements. Heart of hearing. No focal deficits noted Skin: No rash or skin lesions. Psychiatric: Coperative. Could not be assessed completely Musculoskeletal: No joint swelling or deformity. Normal range of motion. - Labs CBC & Chem 7: 05/13/20 05:30 05/13/20 05:30 Labs: Abnormal Lab Results - Last 24 Hours (Table) 05/10/20 05/12/20 05/13/20 Range/Units 10:23 21:28 05:30 WBC 16.5 H (3.8-10.6) k/uL RBC 2.25 L (4.30-5.90) m/uL Hgb 6.7 L* D (13.0-17.5) gm/dL Hct 20.3 L (39.0-53.0) % RDW 19.3 H (11.5-15.5) % Neutrophils # 13.7 H (1.3-7.7) k/uL Sodium (137-145) mmol/L Chloride (98-107) mmol/L Carbon Dioxide (22-30) mmol/L BUN (9-20) mg/dL Creatinine (0.66-1.25) mg/dL POC Glucose (mg/dL) 159 H (75-99) mg/dL Calcium (8.4-10.2) mg/dL Crossmatch See Detail 05/13/20 05/13/20 05/13/20 Range/Units 05:30 06:46 11:17 WBC (3.8-10.6) k/uL RBC (4.30-5.90) m/uL Hgb (13.0-17.5) gm/dL Hct (39.0-53.0) % RDW (11.5-15.5) % Neutrophils # (1.3-7.7) k/uL Sodium 136 L (137-145) mmol/L Chloride 114 H (98-107) mmol/L Carbon Dioxide 18 L (22-30) mmol/L BUN 54 H (9-20) mg/dL Creatinine 1.37 H (0.66-1.25) mg/dL POC Glucose (mg/dL) 140 H 134 H (75-99) mg/dL Calcium 7.1 L (8.4-10.2) mg/dL Crossmatch Assessment and Plan Assessment: Symptomatic anemia Acute blood loss anemia secondary to GI bleed. Patient is status post 3 units of PRBC blood transfusion. EGD showed duodenal ulcer and was in blood vessel. Chronic atrial fibrillation on anticoagulation with Coumadin Diabetes type 2 with hyperglycemia uncontrolled. 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 Previous history of smoking DVT prophylaxis with SCDs plan: Patient will be continued on IV hydration and monitor H&H closely. Continue with Protonix IV. Gastroenterology is following.. Transfusion if the hemoglobin is less than 7. Monitor INR level. Coumadin on hold. Prognosis is guarded with multiple medical problems and comorbid conditions. Time with Patient: Greater than 30
[2020-05-14 05:39] LABS: Anisocytosis Slight; Basophils # (A) 0.1 k/uL (0-0.2); Basophils % (A) 1 %; Eosinophils # (A) 0.2 k/uL (0-0.7); Eosinophils % (A) 2 %; HCT 20.2 % (39.0-53.0); HGB 7.1 gm/dL (13.0-17.5); Lymphocytes # (A) 1.4 k/uL (1.0-4.8); Lymphocytes % (A) 12 %; MCH 31.7 pg (25.0-35.0); MCV 90.5 fL (80.0-100.0); Mean Platelet Volume 7.9; Monocytes # (A) 0.8 k/uL (0-1.0); Monocytes % (A) 7 %; Neutrophils # (A) 8.8 k/uL (1.3-7.7); Neutrophils % (A) 78 %; Platelet Count 141 k/uL (150-450); Poikilocytosis Slight; RBC 2.24 m/uL (4.30-5.90); RDW 18.2 % (11.5-15.5); WBC 11.4 k/uL (3.8-10.6)
[2020-05-14 06:31] LABS: Glucose,Whole Blood 105 mg/dL (75-99)
[2020-05-14] MEDS: INSULIN ASPART (NovoLOG) 100 UNIT/ML VIAL SQ SCH ×4 (07:52→20:26)
[2020-05-14] MEDS: glipiZIDE 5 MG TAB PO SCH ×2 (08:05→17:27)
[2020-05-14] MEDS: PANTOPRAZOLE 40 MG/10 ML VIAL IV SCH ×2 (08:05→20:20)
[2020-05-14] MEDS: FUROSEMIDE 20 MG TAB PO SCH ×2 (08:06→16:08)
[2020-05-14 11:58] LABS: Glucose,Whole Blood 146 mg/dL (75-99)
[2020-05-14] MEDS: polyethylene glycoL 3350 17 GM POWD.PACK PO SCH (13:24)
--- NOTE | 2020-05-14 14:57 | P.PN ---
Subjective Progress Note Date: 05/14/20 On 05/14/2020 the patient is doing well and has no complaints. Hemoglobin dropped down to 6.7 yesterday and the patient was given another unit of packed RBC making a total number of units to 4. Nevertheless, no external bleeding has been noted. The patient has had no further bouts of GI bleeding at least on clinical grounds. No chest pain. No shortness of breath. No cough or sputum production. No hemoptysis. No pleurisy. No altered mentation. He does have some swelling lower extremity is bilaterally. Otherwise, hemoglobin from today is at 7.1. Objective - Vital Signs Vital signs: Vital Signs Temp 98.0 F 05/14/20 14:00 Pulse 80 05/14/20 14:00 Resp 16 05/14/20 14:00 BP 130/69 05/14/20 14:00 Pulse Ox 98 05/14/20 14:00 Intake & Output 05/13/20 05/14/20 05/14/20 18:59 06:59 18:59 Intake Total 1820 800 750 Output Total 2575 775 1225 Balance -755 25 -475 Intake: IV 360 Sodium Chloride 0.9% 1, 360 000 ml @ 120 mls/hr IV . Q8H20M [facility] Rx#:[id number] Oral 1150 800 750 Blood Product 310 Rc As-1 Unit 310 [id number] Output: Urine 2575 775 1225 Other: Voiding Method Urinal Urinal Toilet Urinal # Voids 1 - Exam GENERAL EXAM: Awake, alert very pleasant 75-year-old male patient, resting comfortably in bed, on room air with O2 saturation in the 90s, is very hard of hearing which makes it very difficult to communicate with him. HEAD: Normocephalic/atraumatic. EYES: Normal reaction of pupils, equal size. Conjunctiva pink, sclera white. NOSE: Clear with pink turbinates. THROAT: No erythema or exudates. NECK: No masses, no JVD, no thyroid enlargement, no adenopathy. CHEST: No chest wall deformity. Symmetrical expansion. LUNGS: Equal air entry with no crackles, wheeze, rhonchi or dullness. CVS: Irregular rate and rhythm, normal S1 and S2, no gallops, no murmurs, no rubs ABDOMEN: Soft, nontender. No hepatosplenomegaly, normal bowel sounds, no guarding or rigidity. EXTREMITIES: No clubbing, no edema, no cyanosis, 2+ pulses and upper and lower extremities. MUSCULOSKELETAL: Muscle strength and tone normal. SPINE: No scoliosis or deformity SKIN: No rashes CENTRAL NERVOUS SYSTEM: No focal deficits, tone is normal in all 4 extremities. PSYCHIATRIC: Alert and oriented -3. Appropriate affect. Intact judgment and insight. - Labs CBC & Chem 7: 05/14/20 04:28 05/13/20 05:30 Labs: Abnormal Lab Results - Last 24 Hours (Table) 05/13/20 05/14/20 05/14/20 Range/Units 21:01 04:28 06:30 WBC 11.4 H (3.8-10.6) k/uL RBC 2.24 L (4.30-5.90) m/uL Hgb 7.1 L (13.0-17.5) gm/dL Hct 20.2 L (39.0-53.0) % RDW 18.2 H (11.5-15.5) % Plt Count 141 L (150-450) k/uL Neutrophils # 8.8 H (1.3-7.7) k/uL POC Glucose (mg/dL) 114 H 105 H (75-99) mg/dL 05/14/20 Range/Units 11:56 WBC (3.8-10.6) k/uL RBC (4.30-5.90) m/uL Hgb (13.0-17.5) gm/dL Hct (39.0-53.0) % RDW (11.5-15.5) % Plt Count (150-450) k/uL Neutrophils # (1.3-7.7) k/uL POC Glucose (mg/dL) 146 H (75-99) mg/dL Assessment and Plan Plan: #1. Acute GI blood loss anemia, symptomatic, requiring transfusion with 3 units of packed red blood cells. EGD on 05/11/2020 revealed a superficial duodenal ulcer with visible vessel and active oozing status post Endo Clip placement with good hemostasis. He has received total of 4 units of packed RBC during this current admission. He is currently advancing his diet as tolerated. GI is on the case and the patient remains on IV Protonix 40 mg every 12 hours. #2. Weakness, lightheadedness, fatigue, shortness of breath and black tarry sto ols related to the above, improving #3. Mild coagulopathy related to Coumadin therapy for chronic A. fib, on the most recent INR from 05/11/2020 was down to 2.4 #4. Chronic atrial fibrillation, on Coumadin, currently on hold #5. Hard of hearing #6. Leukocytosis, improved and hemoglobin is down to 11 #7. Acute kidney injury related to acute blood loss anemia #8. Hyponatremia, possibly hypovolemic, recovered #9. Diabetes mellitus #10. History of right nephrectomy for benign tumor #11. Former smoker Plan Advance diet Monitor hemoglobin level Watch for signs of GI bleed Transfer this patient to medical surgical floor Keep the Coumadin on hold for now until cleared by gastroenterology.
[2020-05-14 17:07] LABS: Glucose,Whole Blood 136 mg/dL (75-99)
[2020-05-14 17:10] VITALS: BMI 34.3
[2020-05-14] MEDS ORDERED: polyethylene glycoL 3350 17 GM POWD.PACK PO STA (20:06)
[2020-05-14] MEDS: INSULIN DETEMIR (LEVEMIR) 100 UNIT/ML SYR SQ SCH (20:20)
[2020-05-14 20:22] LABS: Glucose,Whole Blood 201 mg/dL (75-99)
--- NOTE | 2020-05-14 20:47 | PN ---
PROGRESS NOTE DATE OF DICTATION: 05/14/2020 This patient is a 75-year-old pleasant white male admitted to the hospital with acute GI bleed. Presently Coumadin is on hold. He is status post EGD 4 days ago, had a bleeding duodenal ulcer, status post Endoclip placement. He is doing well. No further bleeding. He received a total of 4 units of PRBC transfusion. Today hemoglobin is 7.1 g/dL. PHYSICAL EXAMINATION: Appears comfortable. Blood pressure 130/69, pulse rate 80, temperature 98. HEENT examination unremarkable. Conjunctivae pink. Sclerae anicteric. Oral cavity no lesions. NECK: No JVD or lymph node enlargement. CHEST: Clear to auscultation. HEART: Regular rate and rhythm. ABDOMEN: Soft. Bowel sounds are positive. No organomegaly. EXTREMITIES: No pedal edema. NEUROLOGIC: Alert and oriented x3. No focal deficits. LABS: Labs from today show BUN is 54, creatinine 1.37. WBC 11.4, hemoglobin 7.1. IMPRESSION: 1. Acute upper gastrointestinal bleed secondary to duodenal bulbar ulcer, status post EGD with Endoclip placement. Patient in hemodynamically stable. No further bleeding. 2. Atrial fibrillation, on Coumadin, currently on hold. 3. Elevated BUN and creatinine; possible acute kidney injury. 4. Leukocytosis, resolving. RECOMMENDATIONS: 1. Continue Protonix 40 mg twice daily. 2. Monitor CBC on a daily basis. 3. Symptomatic and supportive care. 4. Advance diet as tolerated. 5. Will follow with you closely. [id number] / IJN: [id number] /
[2020-05-15 05:02] LABS: Anisocytosis Slight; HCT 21.8 % (39.0-53.0); HGB 7.2 gm/dL (13.0-17.5); MCH 29.7 pg (25.0-35.0); MCHC 32.8 g/dL (31.0-37.0); MCV 90.5 fL (80.0-100.0); Mean Platelet Volume 8.2; Platelet Count 126 k/uL (150-450); Poikilocytosis Moderate; RBC 2.41 m/uL (4.30-5.90); RDW 18.1 % (11.5-15.5); WBC 9.8 k/uL (3.8-10.6)
[2020-05-15 05:03] LABS: Prothrombin Time 10.7 sec (9.0-12.0)
[2020-05-15 05:15] LABS: Calcium 7.7 mg/dL (8.4-10.2); Potassium 3.8 mmol/L (3.5-5.1)
[2020-05-15 07:11] LABS: Glucose,Whole Blood 80 mg/dL (75-99)
[2020-05-15] MEDS: INSULIN ASPART (NovoLOG) 100 UNIT/ML VIAL SQ SCH ×4 (08:28→20:34)
--- NOTE | 2020-05-15 08:37 | P.PN ---
Subjective patient is 74-year-old male with a known history of diabetes type 2, history of a right nephrectomy for benign tumor, varicose veins, chronic atrial fibrillation on anticoagulation with Coumadin and previous history of smoking as well as underlying cognitive impairment presents to ER with the complaints of generalized weakness and fatigue. Found to have GI bleed. Status post EGD showed superficial duodenal ulcer with a visible vessel and active oozing status post Endo Clip placement with good hemostasis. Mild antral gastritis. Currently he is stable with no abdominal pain, no other symptoms. His hemoglobin is stable at 7.1 after 1 unit of blood transfusion, to 6.7 yesterday.He is down to 11.4k, and INR 2.4. Creatinine is 1.3 with baseline is around 1.5. Coumadin remains on hold and he remains on IV Protonix CONSTITUTIONAL: No fever, no malaise, no fatigue. HEENT: No recent visual problems or hearing problems. Denied any sore throat. CARDIOVASCULAR: No orthopnea, PND, no palpitations, no syncope. PULMONARY: No shortness of breath, no cough, no hemoptysis. GASTROINTESTINAL: No diarrhea, no nausea, no vomiting, no abdominal pain. Normoactive bowel sounds. NEUROLOGICAL: No headaches, no weakness, no numbness. HEMATOLOGICAL: Denies any bleeding or petechiae. GENITOURINARY: Denies any burning micturition, frequency, or urgency. MUSCULOSKELETAL/RHEUMATOLOGICAL: Denies any joint pain, swelling, or any muscle pain. ENDOCRINE: Denies any polyuria or polydipsia. Active Medications Generic Name Dose Route Start Last Admin Trade Name Freq PRN Reason Stop Dose Admin Furosemide 20 mg 05/14/20 09:00 05/14/20 16:08 Lasix PO 20 mg BID@0900,1600 ELEUTERIO Administration Glipizide 5 mg 05/11/20 17:30 05/14/20 17:27 Glucotrol PO 5 mg AC-SUPPER ELEUTERIO Administration Glipizide 10 mg 05/12/20 07:30 05/14/20 08:05 Glucotrol PO 10 mg AC-[id number] ELEUTERIO Administration Insulin Aspart 0 unit 05/11/20 17:30 05/15/20 08:28 Novolog SQ Not Given ACHS ELEUTERIO Protocol Insulin Detemir 30 unit 05/11/20 21:00 05/14/20 20:20 Levemir SQ 30 unit HS ELEUTERIO Administration Naloxone HCl 0.2 mg 05/10/20 11:24 Narcan IV Q2M PRN Opioid Reversal Pantoprazole Sodium 40 mg 05/11/20 09:00 05/14/20 20:20 Protonix IV 40 mg BID ELEUTERIO Administration Polyethylene Glycol 17 gm 05/14/20 12:15 05/14/20 13:24 Miralax PO 17 gm DAILY ELEUTERIO Administration Objective - Vital Signs Vital signs: Vital Signs Temp 98.1 F 05/14/20 08:45 Pulse 90 05/14/20 08:45 Resp 18 05/14/20 08:45 BP 134/70 05/14/20 08:45 Pulse Ox 99 05/14/20 08:45 Intake & Output 05/13/20 05/14/20 05/14/20 18:59 06:59 18:59 Intake Total 1820 800 500 Output Total 2575 775 900 Balance -755 25 -400 Intake: IV 360 Sodium Chloride 0.9% 1, 360 000 ml @ 120 mls/hr IV . Q8H20M ELEUTERIO Rx#:[id number] Oral 1150 800 500 Blood Product 310 Rc As-1 Unit 310 [id number] Output: Urine 2575 775 900 Other: Voiding Method Urinal Urinal Toilet Urinal # Voids 1 - Exam GENERAL: The patient is alert and oriented x3, not in any acute distress. Well developed, well nourished. HEENT: Pupils are round and equally reacting to light. EOMI. No scleral icterus. No conjunctival pallor. Normocephalic, atraumatic. No pharyngeal erythema. No thyromegaly. CARDIOVASCULAR: S1 and S2 present. No murmurs, rubs, or gallops. PULMONARY: Chest is clear to auscultation, no wheezing or crackles. ABDOMEN: Soft, nontender, nondistended, normoactive bowel sounds. No palpable organomegaly. MUSCULOSKELETAL: No joint swelling or deformity. EXTREMITIES: No cyanosis, clubbing, or pedal edema. NEUROLOGICAL: Gross neurological examination did not reveal any focal deficits. SKIN: No rashes. no petechiae. - Labs CBC & Chem 7: 05/15/20 04:47 05/15/20 04:47 Labs: Abnormal Lab Results - Last 24 Hours (Table) 05/13/20 05/14/2005/14/20 Range/Units 21:01 04:28 06:30 WBC 11.4 H (3.8-10.6) k/uL RBC 2.24 L (4.30-5.90) m/uL Hgb 7.1 L (13.0-17.5) gm/dL Hct 20.2 L (39.0-53.0) % RDW 18.2 H (11.5-15.5) % Plt Count 141 L (150-450) k/uL Neutrophils # 8.8 H (1.3-7.7) k/uL POC Glucose (mg/dL) 114 H 105 H (75-99) mg/dL 05/14/20 Range/Units 11:56 WBC (3.8-10.6) k/uL RBC (4.30-5.90) m/uL Hgb (13.0-17.5) gm/dL Hct (39.0-53.0) % RDW (11.5-15.5) % Plt Count (150-450) k/uL Neutrophils # (1.3-7.7) k/uL POC Glucose (mg/dL) 146 H (75-99) mg/dL Assessment and Plan Assessment: Acute blood loss anemia secondary to GI bleed. Patient is status post 3 units of PRBC blood transfusion. EGD showed duodenal ulcer and was in blood vessel. Chronic atrial fibrillation on anticoagulation with Coumadin Coagulopathy secondary to Coumadin, improvement Diabetes type 2 with hyperglycemia uncontrolled. 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 Previous history of smoking Plan: This is a pleasant 77 years old male who presents with GI bleed secondary to DU status post EGD and Endo Clip. His hemoglobin is stable of blood transfusion, Coumadin remains on hold. Deep monitor in hemoglobin. Keep the patient in the ICU with pulmonary/critical care consult Labs and medication were reviewed.. Continue same treatment. Continue with symptomatic treatment. Resume home medication. Monitor lytes and vitals. DVT and GI prophylaxis. Further recommendations of the clinical course of the patient DVT prophylaxis: Coumadin is on hold for GI bleed GI Prophylaxis: Ppi
[2020-05-15] MEDS: FUROSEMIDE 20 MG TAB PO SCH ×2 (08:43→16:42)
[2020-05-15] MEDS: glipiZIDE 5 MG TAB PO SCH ×2 (08:43→16:42)
[2020-05-15] MEDS: PANTOPRAZOLE 40 MG/10 ML VIAL IV SCH ×2 (08:46→20:34)
[2020-05-15 12:01] LABS: Glucose,Whole Blood 139 mg/dL (75-99)
--- NOTE | 2020-05-15 13:46 | P.PN ---
Subjective Progress Note Date: 05/15/20 05/15/2020, the patient has no specific complaints. He hasn't had a bowel movement yet. He is taking a laxative. He is taking a full regular diet for now and he is completing his diet without any difficulties. Hemoglobin stable at 7.2. No signs of any GI bleed. No respiratory difficulties. Hemodynamic is stable. Objective - Vital Signs Vital signs: Vital Signs Temp 97.9 F 05/15/20 09:01 Pulse 84 05/15/20 09:01 Resp 18 05/15/20 09:01 BP 141/70 05/15/20 09:01 Pulse Ox 97 05/15/20 09:01 Intake & Output 05/14/20 05/15/20 05/15/20 18:59 06:59 18:59 Intake Total 750 1300 Output Total 1225 1175 Balance -475 125 Weight 111.6 kg Intake: Oral 750 1300 Output: Urine 1225 1175 Other: Voiding Method Toilet Toilet Toilet Urinal Urinal Urinal # Voids 1 1 # Bowel Movements 1 - Exam GENERAL EXAM: Awake, alert very pleasant 75-year-old male patient, resting comfortably in bed, on room air with O2 saturation in the 90s, is very hard of hearing which makes it very difficult to communicate with him. HEAD: Normocephalic/atraumatic. EYES: Normal reaction of pupils, equal size. Conjunctiva pink, sclera white. NOSE: Clear with pink turbinates. THROAT: No erythema or exudates. NECK: No masses, no JVD, no thyroid enlargement, no adenopathy. CHEST: No chest wall deformity. Symmetrical expansion. LUNGS: Equal air entry with no crackles, wheeze, rhonchi or dullness. CVS: Irregular rate and rhythm, normal S1 and S2, no gallops, no murmurs, no rubs ABDOMEN: Soft, nontender. No hepatosplenomegaly, normal bowel sounds, no guarding or rigidity. EXTREMITIES: No clubbing, no edema, no cyanosis, 2+ pulses and upper and lower extremities. MUSCULOSKELETAL: Muscle strength and tone normal. SPINE: No scoliosis or deformity SKIN: No rashes CENTRAL NERVOUS SYSTEM: No focal deficits, tone is normal in all 4 extremities. PSYCHIATRIC: Alert and oriented -3. Appropriate affect. Intact judgment and insight. - Labs CBC & Chem 7: 05/15/20 04:47 05/15/20 04:47 Labs: Abnormal Lab Results - Last 24 Hours (Table) 05/14/20 05/14/20 05/15/20 Range/Units 17:04 20:20 04:47 RBC 2.41 L (4.30-5.90) m/uL Hgb 7.2 L (13.0-17.5) gm/dL Hct 21.8 L (39.0-53.0) % RDW 18.1 H (11.5-15.5) % Plt Count 126 L (150-450) k/uL Sodium (137-145) mmol/L Chloride (98-107) mmol/L BUN (9-20) mg/dL Glucose (74-99) mg/dL POC Glucose (mg/dL) 136 H 201 H (75-99) mg/dL Calcium (8.4-10.2) mg/dL 05/15/20 05/15/20 Range/Units 04:47 12:00 RBC (4.30-5.90) m/uL Hgb (13.0-17.5) gm/dL Hct (39.0-53.0) % RDW (11.5-15.5) % Plt Count (150-450) k/uL Sodium 135 L (137-145) mmol/L Chloride 108 H (98-107) mmol/L BUN 29 H (9-20) mg/dL Glucose 62 L (74-99) mg/dL POC Glucose (mg/dL) 139 H (75-99) mg/dL Calcium 7.7 L (8.4-10.2) mg/dL Assessment and Plan Plan: #1. Acute GI blood loss anemia, symptomatic, requiring transfusion with4 units of packed red blood cells throughout his current hospitalization.. EGD on 05/11/2020 revealed a superficial duodenal ulcer with visible vessel and active oozing status post Endo Clip placement with good hemostasis. No signs of any active bleeding and the patient remains on IV Protonix. #2. Weakness, lightheadedness, fatigue, shortness of breath and black tarry stools related to the above, improved on recovered #3. Mild coagulopathy related to Coumadin therapy for chronic A. fib, on the most recent INR from 05/11/2020 was down to 2.4 #4. Chronic atrial fibrillation, on Coumadin, currently on hold #5. Hard of hearing #6. Leukocytosis, improved and hemoglobin is down to 11 #7. Acute kidney injury related to acute blood loss anemia #8. Hyponatremia, possibly hypovolemic, recovered #9. Diabetes mellitus #10. History of right nephrectomy for benign tumor #11. Former smoker Plan The patient is taking a regular diet Off her laxatives Monitor hemoglobin level Watch for signs of GI bleed Transfer this patient to medical surgical floor Keep the Coumadin on hold for now until cleared by gastroenterology. No active pulmonary or critical care issue for now.
--- NOTE | 2020-05-15 15:15 | P.PN ---
Subjective 74-year-old male with a known history of diabetes type 2, history of a right nephrectomy for benign tumor, varicose veins, chronic atrial fibrillation on anticoagulation with Coumadin and previous history of smoking as well as underlying cognitive impairment presents to ER with the complaints of generalized weakness and fatigue. Found to have GI bleed. Status post EGD showed superficial duodenal ulcer with a visible vessel and active oozing status post Endo Clip placement with good hemostasis. Mild antral gastritis. Currently he is stable with no abdominal pain, no other symptoms. His hemoglobin is stable at 7.1 after 1 unit of blood transfusion, to 6.7 yesterday.He is down to 11.4k, and INR 2.4. Creatinine is 1.3 with baseline is around 1.5. Coumadin remains on hold and he remains on IV Protonix 05/15/2020 Patient still has some dark stools from his previous GI bleed. Patient's Coumadin is on hold. Constitutional: Denied any fatigue denied any fever. Cardio vascular: denied any chest pain, palpitations Gastrointestinal denied any nausea vomiting Pulmonary: Denied any shortness of breath cough Neurologic denied any new focal deficits All inpatient medications were reviewed and appropriate changes in these medications as dictated in the interval history and assessment and plan. Objective - Vital Signs Vital signs: Vital Signs Temp 97.9 F 05/15/20 09:01 Pulse 84 05/15/20 09:01 Resp 18 05/15/20 09:01 BP 141/70 05/15/20 09:01 Pulse Ox 97 05/15/20 09:01 Intake & Output 05/14/20 05/15/20 05/15/20 18:59 06:59 18:59 Intake Total 750 1300 Output Total 1225 1175 Balance -475 125 Weight 111.6 kg Intake: Oral 750 1300 Output: Urine 1225 1175 Other: Voiding Method Toilet Toilet Toilet Urinal Urinal Urinal # Voids 1 1 # Bowel Movements 1 - Exam PHYSICAL EXAMINATION: GENERAL: The patient is alert and oriented x3, not in any acute distress. Obese HEENT: Pupils are round and equally reacting to light. EOMI. No scleral icterus. No conjunctival pallor. Normocephalic, atraumatic. No pharyngeal erythema. No thyromegaly. CARDIOVASCULAR: S1 and S2 present. No murmurs, rubs, or gallops. PULMONARY: Chest is clear to auscultation, no wheezing or crackles. ABDOMEN: Soft, nontender, nondistended, normoactive bowel sounds. No palpable organomegaly. MUSCULOSKELETAL: No joint swelling or deformity. EXTREMITIES: No cyanosis, clubbing, or pedal edema. NEUROLOGICAL: Gross neurological examination did not reveal any focal deficits. SKIN: No rashes. - Labs CBC & Chem 7: 05/15/20 04:47 05/15/20 04:47 Labs: Abnormal Lab Results - Last 24 Hours (Table) 05/14/20 05/14/20 05/15/20 Range/Units 17:04 20:20 04:47 RBC 2.41 L (4.30-5.90) m/uL Hgb 7.2 L (13.0-17.5) gm/dL Hct 21.8 L (39.0-53.0) % RDW 18.1 H (11.5-15.5) % Plt Count 126 L (150-450) k/uL Sodium (137-145) mmol/L Chloride (98-107) mmol/L BUN (9-20) mg/dL Glucose (74-99) mg/dL POC Glucose (mg/dL) 136 H 201 H (75-99) mg/dL Calcium (8.4-10.2) mg/dL 05/15/20 05/15/20 Range/Units 04:47 12:00 RBC (4.30-5.90) m/uL Hgb (13.0-17.5) gm/dL Hct (39.0-53.0) % RDW (11.5-15.5) % Plt Count (150-450) k/uL Sodium 135 L (137-145) mmol/L Chloride 108 H (98-107) mmol/L BUN 29 H (9-20) mg/dL Glucose 62 L (74-99) mg/dL POC Glucose (mg/dL) 139 H (75-99) mg/dL Calcium 7.7 L (8.4-10.2) mg/dL Assessment and Plan Plan: Acute blood loss anemia secondary to GI bleed. Patient is status post 3 units of PRBC blood transfusion. Large bleeding duodenal ulcer for which patient had an Endo Clip off Coumadin had improving but still.stools. Patient will be monitored Chronic atrial fibrillation on anticoagulation with Coumadin which is being held because of GI bleed this will be reinitiated [facility] gastroenterology Coagulopathy secondary to Coumadin, improved Diabetes type 2 with hyperglycemia uncontrolled. 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 Previous history of smoking
[2020-05-15] MEDS: polyethylene glycoL 3350 17 GM POWD.PACK PO SCH (16:59)
[2020-05-15 17:09] LABS: Glucose,Whole Blood 192 mg/dL (75-99)
--- NOTE | 2020-05-15 20:16 | PN ---
PROGRESS NOTE DATE OF DICTATION: 05/15/2020 This patient is a 75-year-old pleasant white male admitted to the hospital with acute upper GI bleed. He had one black tarry stool early this morning. He denies any abdominal pain. No nausea or vomiting. Hemoglobin from this morning was stable at 7.2 g/dL. PHYSICAL EXAMINATION: He appears comfortable. No apparent distress. Vital signs are stable. Blood pressure is 112/72, pulse rate 95, temperature 98.3. HEENT examination unremarkable. Conjunctivae pink. Sclerae anicteric. Oral cavity no lesions. NECK: No JVD or lymph node enlargement. CHEST: Clear to auscultation. HEART: Regular rate and rhythm. ABDOMEN: Soft. Bowel sounds are positive. No organomegaly. EXTREMITIES: No pedal edema. NEUROLOGIC: Alert and oriented x3. No focal deficits. LABS: WBC 9.8, hemoglobin 7.2, platelets 126. INR is 1. BUN 29, creatinine 1.16. IMPRESSION: 1. Acute upper gastrointestinal bleed, status post EGD 4 days ago that showed a duodenal bulbar ulcer with visible vessel, status post Endoclip placement. The patient remains hemodynamically stable. However, he had one episode of black tarry stool with blood. Hemoglobin is 7.2 g/dL. 2. Atrial fibrillation, on Coumadin, currently on hold. RECOMMENDATIONS: 1. Continue to hold Coumadin. 2. Okay for aspirin. 3. Continue Protonix 40 mg q.12 hours. 4. Repeat CBC in the morning, and if he continues to have active bleeding, will consider repeat endoscopic intervention. Thank you for this consultation. MMODL / IJN: [id number] /
[2020-05-15 20:25] LABS: Glucose,Whole Blood 186 mg/dL (75-99)
[2020-05-15] MEDS: INSULIN DETEMIR (LEVEMIR) 100 UNIT/ML SYR SQ SCH (20:34)
[2020-05-16 07:12] LABS: Anisocytosis Slight; HCT 23.1 % (39.0-53.0); HGB 7.4 gm/dL (13.0-17.5); Hypochromasia Slight; MCH 29.6 pg (25.0-35.0); MCHC 31.9 g/dL (31.0-37.0); MCV 92.8 fL (80.0-100.0); Mean Platelet Volume 8.3; Platelet Count 131 k/uL (150-450); Poikilocytosis Moderate; RBC 2.49 m/uL (4.30-5.90); RDW 18.5 % (11.5-15.5)
[2020-05-16 07:16] LABS: Prothrombin Time 10.5 sec (9.0-12.0)
[2020-05-16 07:18] LABS: Glucose,Whole Blood 71 mg/dL (75-99)
[2020-05-16] MEDS: INSULIN ASPART (NovoLOG) 100 UNIT/ML VIAL SQ SCH ×4 (07:19→22:31)
[2020-05-16 07:24] LABS: Potassium 4.1 mmol/L (3.5-5.1)
[2020-05-16] MEDS: PANTOPRAZOLE 40 MG/10 ML VIAL IV SCH ×2 (08:45→21:34)
[2020-05-16] MEDS: FUROSEMIDE 20 MG TAB PO SCH ×2 (09:24→17:25)
[2020-05-16] MEDS: ASPIRIN 81 MG PO SCH (09:25)
[2020-05-16] MEDS: glipiZIDE 5 MG TAB PO SCH ×2 (09:26→17:25)
[2020-05-16] MEDS: polyethylene glycoL 3350 17 GM POWD.PACK PO SCH (09:27)
[2020-05-16 11:11] LABS: Glucose,Whole Blood 406 mg/dL (75-99)
[2020-05-16] MEDS ORDERED: FERROUS SULFATE 325 MG TAB PO SCH (12:30)
--- NOTE | 2020-05-16 15:55 | P.PN ---
Subjective Progress Note Date: 05/16/20 Principal diagnosis: 74-year-old male with a known history of diabetes type 2, history of a right nephrectomy for benign tumor, varicose veins, chronic atrial fibrillation on anticoagulation with Coumadin and previous history of smoking as well as underlying cognitive impairment presents to ER with the complaints of generalized weakness and fatigue. Found to have GI bleed. Status post EGD showed superficial duodenal ulcer with a visible vessel and active oozing status post Endo Clip placement with good hemostasis. Mild antral gastritis. Currently he is stable with no abdominal pain, no other symptoms. His hemoglobin is stable at 7.1 after 1 unit of blood transfusion, to 6.7 yesterday.He is down to 11.4k, and INR 2.4. Creatinine is 1.3 with baseline is around 1.5. Coumadin remains on hold and he remains on IV Protonix 05/15/2020 Patient still has some dark stools from his previous GI bleed. Patient's Coumadin is on hold. Constitutional: Denied any fatigue denied any fever. Cardio vascular: denied any chest pain, palpitations Gastrointestinal denied any nausea vomiting Pulmonary: Denied any shortness of breath cough Neurologic denied any new focal deficits All inpatient medications were reviewed and appropriate changes in these medications as dictated in the interval history and assessment and plan. 05/16/2020 Patient was seen and evaluated and follow-up and continues to have some dark maroon stools that were noted by nursing staff. GI following. Coumadin currently on hold and will continue at this time as patient will be undergoing endoscopy again with GI in the morning. Hemoglobin is 7.4. Patient states he is not bleeding anymore and would like to go home. Patient denied any blood noted in his stool. Currently denies any chest pain, shortness of breath, or palpitations. Patient is afebrile. No reports of nausea or vomiting and myrna dennis is tolerating diet. Will repeat a.m. labs and monitor hemoglobin and any signs of bleeding noted. Objective - Vital Signs Vital signs: Vital Signs Temp 97.6 F 05/16/20 13:00 Pulse 95 05/16/20 13:00 Resp 14 05/16/20 13:00 BP 150/71 05/16/20 13:00 Pulse Ox 100 05/16/20 13:00 Intake & Output 05/15/20 05/16/20 05/16/20 18:59 06:59 18:59 Output Total 925 3965 250 Balance -925 -5581 -114 Weight 111.6 kg Output: Urine 925 1245 250 Other: Voiding Method Toilet Toilet Urinal Urinal # Voids 3 2 3 # Bowel Movements 1 1 - Exam GENERAL: The patient is alert and oriented x3, not in any acute distress. Hard of hearing. Obese HEENT: Pupils are round and equally reacting to light. EOMI. No scleral icterus. No conjunctival pallor. Normocephalic, atraumatic. No pharyngeal erythema. No thyromegaly. CARDIOVASCULAR: S1 and S2 present. No murmurs, rubs, or gallops. PULMONARY: Chest is clear to auscultation, no wheezing or crackles. ABDOMEN: Soft, nontender, nondistended, normoactive bowel sounds. No palpable organomegaly. MUSCULOSKELETAL: No joint swelling or deformity. EXTREMITIES: No cyanosis, clubbing, or pedal edema. NEUROLOGICAL: Gross neurological examination did not reveal any focal deficits. SKIN: No rashes. - Labs CBC & Chem 7: 05/16/20 06:27 05/16/20 06:27 Labs: Abnormal Lab Results - Last 24 Hours (Table) 05/15/20 05/15/20 05/16/20 Range/Units 17:06 20:24 06:27 RBC 2.49 L (4.30-5.90) m/uL Hgb 7.4 L (13.0-17.5) gm/dL Hct 23.1 L (39.0-53.0) % RDW 18.5 H (11.5-15.5) % Plt Count 131 L (150-450) k/uL Sodium (137-145) mmol/L BUN (9-20) mg/dL Glucose (74-99) mg/dL POC Glucose (mg/dL) 192 H 186 H (75-99) mg/dL Calcium (8.4-10.2) mg/dL 05/16/20 05/16/20 05/16/20 Range/Units 06:27 07:16 11:03 RBC (4.30-5.90) m/uL Hgb (13.0-17.5) gm/dL Hct (39.0-53.0) % RDW (11.5-15.5) % Plt Count (150-450) k/uL Sodium 135 L (137-145) mmol/L BUN 24 H (9-20) mg/dL Glucose 56 L (74-99) mg/dL POC Glucose (mg/dL) 71 L 406 H (75-99) mg/dL Calcium 8.0 L (8.4-10.2) mg/dL Assessment and Plan Assessment: Acute blood loss anemia secondary to GI bleed. Patient is status post 3 units of PRBC blood transfusion. Large bleeding duodenal ulcer for which patient had an Endo Clip off Coumadin had improving but still having dark maroon colored stools. Patient will be monitored. GI following and plans for endoscopy in the morning. Chronic atrial fibrillation on anticoagulation with Coumadin which is being held because of GI bleed. Continuing to hold Coumadin as GI is planning endoscopy in the morning Coagulopathy secondary to Coumadin, improved Diabetes type 2 with hyperglycemia uncontrolled. 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 Previous history of smoking Plan: Patient will be maintained on clear liquids and nothing by mouth after midnight as GI plans endoscopy for continued dark maroon colored stools noted. Hemoglobin is 7.4 today. Will repeat a.m. labs. Monitor closely for any signs of bleeding and will transfuse for hemoglobin less than 7. Coumadin and aspirin will be on hold as patient is undergoing endoscopy in the morning. Further recommendations to follow. Possible discharge in 24-48 hours.
[2020-05-16 17:07] LABS: Glucose,Whole Blood 75 mg/dL (75-99)
[2020-05-16 19:53] LABS: Glucose,Whole Blood 139 mg/dL (75-99)
[2020-05-16] MEDS: INSULIN DETEMIR (LEVEMIR) 100 UNIT/ML SYR SQ SCH (21:34)
--- NOTE | 2020-05-16 22:06 | PN ---
PROGRESS NOTE DATE OF DICTATION: 05/16/2020 Patient is a 75-year-old pleasant white male admitted to the hospital with acute upper GI bleed. He had an upper endoscopy done about 5 days ago and was noted to a duodenal bulbar ulcer, for which he underwent Endoclip placement. He was doing well for the last 5 days. However, last night he had one episode of bloody bowel movement and this morning he had another episode of maroon-colored stool. His hemoglobin, however, remains stable at 7.1 g/dL. The patient received a total of 4 units of PRBC transfusion since the time of admission to the hospital. He denies any abdominal pain. No nausea, vomiting. PHYSICAL EXAMINATION: Appears comfortable. Blood pressure is 124/68, pulse rate 87, temperature 97.9. HEENT examination unremarkable. Conjunctivae pink. Sclerae anicteric. Oral cavity no lesions. NECK: No JVD or lymph node enlargement. CHEST: Clear to auscultation. HEART: Regular rate and rhythm. ABDOMEN: Soft. Bowel sounds are positive. No organomegaly. EXTREMITIES: No pedal edema. SKIN: No rashes. NEUROLOGIC: Alert and oriented x3. No focal deficits. LABS: Labs from today show WBC 8, hemoglobin 7.4, platelets 131, BUN 24, creatinine 1.25. IMPRESSION: 1. Acute upper gastrointestinal bleed, status post EGD 5 days ago that revealed a duodenal bulbar ulcer, for which he underwent Endoclip placement. He did well for the last 4 days. However, last night and this morning he had a large amount of bloody bowel movement, 2 episodes. Hemoglobin stable. Hemodynamically stable. Possible recurrent bleeding from the duodenal ulcer. 2. History of atrial fibrillation, on Coumadin, which is currently on hold. INR is 1. RECOMMENDATIONS: 1. Continue to hold Coumadin. 2. Continue Protonix 40 mg twice daily. 3. Because of the ongoing bleeding, we will proceed with an upper endoscopy tomorrow. 4. Change him to a clear liquid diet. Will follow with you closely. Thank you for this consultation. [id number] / ELENITAN: [id number] /
[2020-05-17 03:20] LABS: Glucose,Whole Blood 86 mg/dL (75-99)
[2020-05-17 04:43] VITALS: TEMP 97.6
[2020-05-17] MEDS: glipiZIDE 5 MG TAB PO SCH (06:52)
[2020-05-17] MEDS: INSULIN ASPART (NovoLOG) 100 UNIT/ML VIAL SQ SCH ×2 (06:52→10:53)
[2020-05-17 07:04] LABS: Anisocytosis Slight; HCT 24.3 % (39.0-53.0); HGB 7.8 gm/dL (13.0-17.5); Hypochromasia Moderate; MCHC 31.9 g/dL (31.0-37.0); Mean Platelet Volume 8.3; Platelet Count 126 k/uL (150-450); Poikilocytosis Marked; RBC 2.67 m/uL (4.30-5.90); RDW 18.5 % (11.5-15.5)
[2020-05-17 07:21] LABS: Glucose,Whole Blood 95 mg/dL (75-99)
[2020-05-17 07:28] LABS: Calcium 8.3 mg/dL (8.4-10.2); Potassium 5.1 mmol/L (3.5-5.1)
[2020-05-17] MEDS: ASPIRIN 81 MG PO SCH (07:59)
[2020-05-17] MEDS: polyethylene glycoL 3350 17 GM POWD.PACK PO SCH (07:59)
[2020-05-17] MEDS: FUROSEMIDE 20 MG TAB PO SCH (07:59)
[2020-05-17] MEDS: PANTOPRAZOLE 40 MG/10 ML VIAL IV SCH (08:00)
[2020-05-17 10:10] LABS: Band Neutrophils % 1 %; Eosinophils # (M) 0.14 k/uL (0-0.7); Lymphocytes # (M) 1.22 k/uL (1.0-4.8); Metamyelocytes # (M) 0.14 k/uL (0); Metamyelocytes % 2 %; Monocytes # (M) 0.43 k/uL (0-1.0); Neutrophils % (M) 73 %; Nucleated Red Blood Cells 2 /100 WBC (0-0); Polychromasia Present; Total Cells Counted 200; WBC 7.2 k/uL (3.8-10.6)
[2020-05-17 11:51] LABS: Glucose,Whole Blood 113 mg/dL (75-99)
[2020-05-17 12:04] VITALS: BP 137/72; PULSE 86; RESP 17
[2020-05-17] MEDS ORDERED: LIDOCAINE 1% INJ 10MG/ML (20 ML MDV) ONE (12:47)
[2020-05-17] MEDS ORDERED: PROPOFOL 10 MG/ML 20 ML VIAL IV ONE (12:47)
[2020-05-17] MEDS ORDERED: LACTATED RINGERS 1,000 ML IV ONE (12:59)
--- NOTE | 2020-05-17 13:02 | P.PCN ---
Date of Procedure: 05/17/20 Procedure(s) Performed: BRIEF HISTORY: Patient is a 75-year-old, pleasant, white male admitted hospital with acute GI bleed. She of A. ayden on Coumadin which is currently on hold. He had an upper endoscopy done 5 years ago that showed a duodenal bulbar ulcer with active bleeding and Endo Clip was placed. Patient did well. However in had some dark colored stool with blood yesterday and hemoglobin was stable at 7.5 g/dL. He scheduled for an upper endoscopy to evaluate further. PROCEDURE PERFORMED: Esophagogastroduodenoscopy with biopsy PREOPERATIVE DIAGNOSIS: .Acute GI bleed IV sedation per anesthesia. PROCEDURE: After informed consent was obtained, the patient was brought into the endoscopy unit. IV sedation was administered by Anesthesia under continuous monitoring. Initially the Olympus GIF-140 video endoscope was inserted into the mouth. Esophagus intubated without any difficulty. It was gradually advanced into the stomach and duodenum and carefully examined. The second part of the duodenum appeared normal. in the bulb of the duodenum the previously noted antral ulcer was identified which was very superficial and Endo clip was still in place no active bleeding identified. The scope at this time was withdrawn to the stomach, adequately insufflated with air, and upon careful examination, mucosa of the antrum had scattered erosions and biopsies were done for H. pylori infection. The , body, cardia and the fundus appeared normal. The scope was then withdrawn into the esophagus. The GE junction was located at 39 cm from the incisors. The esophagus appeared normal. There were no erosions or ulcerations seen and the patient tolerated the procedure well. IMPRESSION: 1. Previously noted duodenal bulbar ulcer noted with an Endo Clip in place and no active bleeding. 2 Mild antral gastritis. RECOMMENDATIONS: The findings of this examination were discussed with the patient As well as his family. He will continue with Protonix 40 mg twice daily and diet will be advanced as tolerated..
--- NOTE | 2020-05-19 09:21 | P.DS ---
Providers Date of admission: 05/10/20 15:23 Expected date of discharge: 05/17/20 Attending physician: Laya Fajardo Consults: 05/10/20 11:25 Consult Physician Urgent Consulting Provider: Gregg Moseley Consult Reason/Comments: gi hemorrhage Do you want consulting provider notified?: Yes 05/10/20 16:43 Consult Physician Urgent Consulting Provider: Porfirio Baumann Reason/Comments: ICU management Do you want consulting provider notified?: Already Contacted Primary care physician: [facility] Hospital Course: Final diagnosis Acute blood loss anemia secondary to GI bleed. Large bleeding duodenal ulcer Chronic atrial fibrillation on anticoagulation with Coumadin Coagulopathy secondary to Coumadin, improved Diabetes type 2 with hyperglycemia uncontrolled. 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 Previous history of smoking Discharge disposition Patient is being discharged in a stable condition with guarded prognosis to home. Patient will follow-up with [facility] along with Dr. Brianne BULL upon discharge. Total time taken is 35 minutes. History of present illness 74-year-old male with a known history of diabetes type 2, history of a right nephrectomy for benign tumor, varicose veins, chronic atrial fibrillation on anticoagulation with Coumadin and previous history of smoking as well as underlying cognitive impairment presents to ER with the complaints of generalized weakness and fatigue. Found to have GI bleed. Status post EGD showed superficial duodenal ulcer with a visible vessel and active oozing status post Endo Clip placement with good hemostasis. Mild antral gastritis. Currently he is stable with no abdominal pain, no other symptoms. His hemoglobin is stable at 7.1 after 1 unit of blood transfusion, to 6.7 yesterday.He is down to 11.4k, and INR 2.4. Creatinine is 1.3 with baseline is around 1.5. Coumadin remains on hold and he remains on IV Protonix 05/15/2020 Patient still has some dark stools from his previous GI bleed. Patient's Coumadin is on hold. Constitutional: Denied any fatigue denied any fever. Cardio vascular: denied any chest pain, palpitations Gastrointestinal denied any nausea vomiting Pulmonary: Denied any shortness of breath cough Neurologic denied any new focal deficits All inpatient medications were reviewed and appropriate changes in these medications as dictated in the interval history and assessment and plan. 05/16/2020 Patient was seen and evaluated and follow-up and continues to have some dark maroon stools that were noted by nursing staff. GI following. Coumadin currently on hold and will continue at this time as patient will be undergoing endoscopy again with GI in the morning. Hemoglobin is 7.4. Patient states he is not bleeding anymore and would like to go home. Patient denied any blood noted in his stool. Currently denies any chest pain, shortness of breath, or palpitations. Patient is afebrile. No reports of nausea or vomiting and patient is tolerating diet. Will repeat a.m. labs and monitor hemoglobin and any signs of bleeding noted. 05/17/2020 Patient underwent repeat EGD showing no active bleeding noted. Hemoglobin is stable at 7.8. Patient will continue to hold coumadin for one week in the outpatient and instructed to follow up with GI and pcp to have INR rechecked. Patient will continue on protonix for now. Patient denies any chest pain, shortness of breath, or palpitations. Patient is afebrile, with no reports of nausea or vomiting and tolerating diet. bowel movements have no blood noted. Patient would like to go home today and is being discharged. On exam vital signs are stable. Temp is 97.6F, pulse is 86, respirations are 17, blood pressure 137/72, oxygen saturation is 100% on room air. Cardio S1, S2 are present. Respiratory shows clear to auscultation. Abdomen is soft and nontender. Nervous system shows no focal deficits. Please refer to medication reconciliation sheet for a list of medications. Patient Condition at Discharge: Stable Plan - Discharge Summary Discharge Rx Participant: Yes New Discharge Prescriptions: New Pantoprazole Sodium [Protonix] 40 mg PO DAILY #30 tablet. Continue Ferrous Sulfate [Iron (65 MG Elemental)] 325 mg PO DAILY Insulin Detemir (Levemir) [Levemir] 30 unit SQ HS glipiZIDE [Glucotrol] 5 mg PO AC-SUPPER glipiZIDE [Glucotrol] 10 mg PO AC-BRKFST Furosemide [Lasix] 20 mg PO BID Aspirin EC [Ecotrin Low Dose] 81 mg PO DAILY Potassium Chloride 10 meq PO DAILY Discontinued Warfarin [Coumadin] 5 mg PO MOFR Warfarin [Coumadin] 2.5 mg PO SUTUWETHSA Discharge Medication List Aspirin EC [Ecotrin Low Dose] 81 mg PO DAILY 05/10/20 [History] Ferrous Sulfate [Iron (65 MG Elemental)] 325 mg PO DAILY 05/10/20 [History] Furosemide [Lasix] 20 mg PO BID 05/10/20 [History] Insulin Detemir (Levemir) [Levemir] 30 unit SQ HS 05/10/20 [History] Potassium Chloride 10 meq PO DAILY 05/10/20 [History] glipiZIDE [Glucotrol] 5 mg PO AC-SUPPER 05/10/20 [History] glipiZIDE [Glucotrol] 10 mg PO AC-BRKFST 05/10/20 [History] Pantoprazole Sodium [Protonix] 40 mg PO DAILY #30 tablet. 05/17/20 [Rx] Follow up Appointment(s)/Referral(s): Maida Deckre MD [STAFF PHYSICIAN] - 1 Week [facility],Clinic [Primary Care Provider] - 1-2 days (office to call you with appt. time and date.) Ambulatory/Diagnostic Orders: Complete Blood Count w/diff [LAB.AMB] Time Frame: 2 Days, Location: None Selected Patient Instructions/Handouts: Pantoprazole (By mouth), Gastrointestinal Bleeding (DC), Basic Carbohydrate Counting (DC), Complete Blood Count (GEN), Diabetes and Nutrition (DC) Activity/Diet/Wound Care/Special Instructions: Activity Limited until follow-up Continue current diet Continue with Protonix daily Continue to hold Coumadin for one week Follow-up with primary care provider upon discharge Follow-up with GI in the outpatient setting Discharge Disposition: HOME SELF-CARE
== END 2020-05-17 15:00 | disposition home or self-care (01) | DRG 378 ==
LOC: EC 09:38 → 1SOBS 11:24 → OBSVTOIN 15:23 → 2SICU 15:35 → 5NMEDONC 05-15 21:10
PROVIDERS: ADMIT Hospitalist; ATTEND Hospitalist
PROC: 0W3P8ZZ Control Bleeding in Gastrointestinal Tract, Via Natural or Artificial Opening Endoscopic (ICD-10-PCS; principal; 2020-05-11 14:05)
PROC: 0DB78ZX Excision of Stomach, Pylorus, Via Natural or Artificial Opening Endoscopic, Diagnostic (ICD-10-PCS; 2020-05-17)
PROC: 30233N1 Transfusion of Nonautologous Red Blood Cells into Peripheral Vein, Percutaneous Approach (ICD-10-PCS; 2020-05-17)
DX: K26.4 Chronic or unspecified duodenal ulcer with hemorrhage (principal); D62 Acute posthemorrhagic anemia; E87.1 Hypo-osmolality and hyponatremia; D68.9 Coagulation defect, unspecified; I48.20 Chronic atrial fibrillation, unspecified; N17.9 Acute kidney failure, unspecified; E86.1 Hypovolemia; E87.5 Hyperkalemia; H91.90 Unspecified hearing loss, unspecified ear; K29.70 Gastritis, unspecified, without bleeding; E11.65 Type 2 diabetes mellitus with hyperglycemia; T45.515A Adverse effect of anticoagulants, initial encounter; Z11.59 Encounter for screening for other viral diseases; Z79.82 Long term (current) use of aspirin; Z79.4 Long term (current) use of insulin; Z79.01 Long term (current) use of anticoagulants; Z90.49 Acquired absence of other specified parts of digestive tract; Z90.5 Acquired absence of kidney; Z87.891 Personal history of nicotine dependence; Z80.9 Family history of malignant neoplasm, unspecified
CPT/HCPCS: 36415; 43239; 43255; 71045; 71046; 80048; 80053; 81003; 82550; 83880; 84484; 85025; 85027; 85610; 85730; 86850; 86900; 86901; 86920; 93005; 96374; 99285

== ENCOUNTER 2020-12-21 12:57 | Inpatient (IN) | payer OTHER, MEDICARE ==
[2020-12-21] MEDS ORDERED: SODIUM CHLORIDE 0.9% 500 ML 500 ML IV ONE (13:16)
[2020-12-21] MEDS ORDERED: ALBUTEROL HFA INHALER INHALATION STA (13:16)
--- NOTE | 2020-12-21 13:22 | ED ---
General Adult HPI - General Chief complaint: Weakness Stated complaint: Weakness Time Seen by Provider: 12/21/20 13:05 Source: patient, family, RN notes reviewed, old records reviewed Mode of arrival: ambulatory Limitations: no limitations - History of Present Illness Initial comments: 75-year-old male presenting for evaluation of generalized weakness, cough and dyspnea. Patient was given coronavirus vaccine approximately 8 days ago. 2 days after that he began feeling unwell, he had subjective fever and chills, he did have a cough but states this has resolved. He denies central chest pain. He reports generalized weakness and easy fatigue. Patient denies abdominal pain nausea vomiting. No diarrhea. - Related Data Home Medications Medication Instructions Recorded Confirmed Aspirin EC [Ecotrin Low Dose] 81 mg PO DAILY 05/10/20 05/10/20 Ferrous Sulfate [Iron (65 MG 325 mg PO DAILY 05/10/20 05/10/20 Elemental)] Furosemide [Lasix] 20 mg PO BID 05/10/20 05/10/20 Insulin Detemir (Levemir) [Levemir] 30 unit SQ HS 05/10/20 05/10/20 Potassium Chloride 10 meq PO DAILY 05/10/20 05/10/20 glipiZIDE [Glucotrol] 5 mg PO AC-SUPPER 05/10/20 05/10/20 glipiZIDE [Glucotrol] 10 mg PO AC-BRKFST 05/10/20 05/10/20 Previous Rx's Medication Instructions Recorded Pantoprazole Sodium [Protonix] 40 mg PO DAILY #30 tablet. 05/17/20 Allergies Allergy/AdvReac Type Severity Reaction Status Date / Time No Known Allergies Allergy Verified 12/21/20 13:02 Review of Systems ROS Statement: Those systems with pertinent positive or pertinent negative responses have been documented in the HPI. ROS Other: All systems not noted in ROS Statement are negative. Past Medical History Past Medical History: Diabetes Mellitus, Hearing Disorder / Deafness, Renal Disease Additional Past Medical History / Comment(s): IDDM type II, R nephrectomy for beign tumor, would to L lower extremity, [place] bilateraloly-uses hearing aides. Pt states he does not know why he is on coumadin or lasix. History of Any Multi-Drug Resistant Organisms: None Reported Past Surgical History: Appendectomy Additional Past Surgical History / Comment(s): right kidney removed for benign tumor, colonoscopy. Past Anesthesia/Blood Transfusion Reactions: No Reported Reaction Additional Past Anesthesia/Blood Transfusion Reaction / Comment(s): Pt is unsure if he received blood during R nephrectomy. Past Psychological History: No Psychological Hx Reported Smoking Status: Former smoker Past Alcohol Use History: None Reported Past Drug Use History: None Reported - Past Family History Father Additional Family Medical History / Comment(s): Father had "heart problems" He at the age of 91 yrs. Mother Family Medical History: Cancer Additional Family Medical History / Comment(s): Mother had cancer at the age of 84 yrs but pt does not recall type. She at the age of 91 yrs. General Exam Limitations: no limitations General appearance: alert, in no apparent distress Head exam: Present: atraumatic, normocephalic Eye exam: Present: normal appearance, PERRL ENT exam: Present: mucous membranes dry Neck exam: Present: normal inspection. Absent: tenderness, meningismus Respiratory exam: Present: respiratory distress, rhonchi, decreased breath sounds, prolonged expiratory Cardiovascular Exam: Present: tachycardia, irregular rhythm GI/Abdominal exam: Present: soft. Absent: distended, tenderness, guarding Extremities exam: Present: pedal edema, other (Chronic venous stasis bilaterally) Neurological exam: Present: alert, oriented X3, CN II-XII intact. Absent: motor sensory deficit Psychiatric exam: Present: normal affect, normal mood Skin exam: Present: warm, dry, intact. Absent: cyanosis, diaphoretic Course Vital Signs 12/21/20 12/21/20 12:59 14:29 Temperature 97.4 F L Pulse Rate 120 H 107 H Respiratory 22 16 Rate Blood Pressure 141/77 133/74 O2 Sat by Pulse 84 L 95 Oximetry EKG Findings - EKG Comments: EKG Findings:: Atrial fibrillation with RVR, rate of 114, QRS duration 78, QTC 405, no ST segment elevation. Medical Decision Making - Medical Decision Making 75-year-old male presenting with increased weakness fatigue, cough. Patient is tachycardic in A. fib on arrival. The pulse is hypoxic. Workup does reveal leukocytosis, elevated d-dimer all this is in the setting of an elevated INR this patient is on Coumadin. D-dimer was ordered for prognostic purposes only. There is a problem with the lab in obtaining the CMP these results are pending. Patient's coronavirus test is positive. His x-ray does show basilar infiltrate. Case has been discussed with Dr. Nova who will admit. - Lab Data Result diagrams: 12/21/20 13:24 12/21/20 13:24 Lab Results 12/21/20 12/21/20 12/21/20 Range/Units 13:24 13:24 13:24 WBC 16.6 H (3.8-10.6) k/uL RBC 5.94 H (4.30-5.90) m/uL Hgb 15.8 (13.0-17.5) gm/dL Hct 46.8 (39.0-53.0) % MCV 78.8 L (80.0-100.0) fL MCH 26.6 (25.0-35.0) pg MCHC 33.8 (31.0-37.0) g/dL RDW 16.7 H (11.5-15.5) % Plt Count 228 (150-450) k/uL MPV 8.7 Neutrophils % 96 % Lymphocytes % 1 % Monocytes % 2 % Eosinophils % 1 % Basophils % 0 % Neutrophils # 15.9 H (1.3-7.7) k/uL Lymphocytes # 0.2 L (1.0-4.8) k/uL Monocytes # 0.3 (0-1.0) k/uL Eosinophils # 0.1 (0-0.7) k/uL Basophils # 0.0 (0-0.2) k/uL Poikilocytosis Slight Anisocytosis Slight Microcytosis Slight PT 47.4 H (9.0-12.0) sec INR 4.9 H (<1.2) APTT 41.3 H (22.0-30.0) sec D-Dimer 1.36 H (<0.60) mg/L FEU Chloride 92 L (98-107) mmol/L Troponin I (0.000-0.034) ng/mL NT-Pro-B Natriuret Pep pg/mL Coronavirus (PCR) (Not Detectd) 12/21/20 12/21/20 12/21/20 Range/Units 13:24 13:24 13:24 WBC (3.8-10.6) k/uL RBC (4.30-5.90) m/uL Hgb (13.0-17.5) gm/dL Hct (39.0-53.0) % MCV (80.0-100.0) fL MCH (25.0-35.0) pg MCHC (31.0-37.0) g/dL RDW (11.5-15.5) % Plt Count (150-450) k/uL MPV Neutrophils % % Lymphocytes % % Monocytes % % Eosinophils % % Basophils % % Neutrophils # (1.3-7.7) k/uL Lymphocytes # (1.0-4.8) k/uL Monocytes # (0-1.0) k/uL Eosinophils # (0-0.7) k/uL Basophils # (0-0.2) k/uL Poikilocytosis Anisocytosis Microcytosis PT (9.0-12.0) sec INR (<1.2) APTT (22.0-30.0) sec D-Dimer (<0.60) mg/L FEU Chloride (98-107) mmol/L Troponin I 0.015 (0.000-0.034) ng/mL NT-Pro-B Natriuret Pep 1360 pg/mL Coronavirus (PCR) Detected A (Not Detectd) Disposition Clinical Impression: Dehydration, Pneumonia, COVID-19 Disposition: ADMITTED IP TO THIS [facility] Condition: Stable Is patient prescribed a controlled substance at d/c from ED?: No Referrals: [facility],Clinic [Primary Care Provider] - 1-2 days Decision to Admit Reason: Admit from EC Decision Date: 12/21/20 Decision Time: 14:34
[2020-12-21 13:40] LABS: Anisocytosis Slight; Basophils % (A) 0 %; Eosinophils # (A) 0.1 k/uL (0-0.7); Eosinophils % (A) 1 %; HCT 46.8 % (39.0-53.0); HGB 15.8 gm/dL (13.0-17.5); Lymphocytes # (A) 0.2 k/uL (1.0-4.8); Lymphocytes % (A) 1 %; MCH 26.6 pg (25.0-35.0); MCHC 33.8 g/dL (31.0-37.0); MCV 78.8 fL (80.0-100.0); Mean Platelet Volume 8.7; Microcytosis Slight; Monocytes # (A) 0.3 k/uL (0-1.0); Monocytes % (A) 2 %; Neutrophils # (A) 15.9 k/uL (1.3-7.7); Neutrophils % (A) 96 %; Platelet Count 228 k/uL (150-450); Poikilocytosis Slight; RBC 5.94 m/uL (4.30-5.90); RDW 16.7 % (11.5-15.5); WBC 16.6 k/uL (3.8-10.6)
[2020-12-21 13:51] LABS: Albumin 3.3 g/dL (3.5-5.0); Calcium 8.2 mg/dL (8.4-10.2); Magnesium 2.4 mg/dL (1.6-2.3); Potassium 4.4 mmol/L (3.5-5.1); Total Bilirubin 4.3 mg/dL (0.2-1.3); Total Protein 6.2 g/dL (6.3-8.2)
[2020-12-21 13:52] LABS: INR 4.9 (<1.2); Partial Thromboplastin Time 41.3 sec (22.0-30.0); Prothrombin Time 47.4 sec (9.0-12.0)
--- NOTE | 2020-12-21 13:58 | XR ---
EXAMINATION TYPE: XR chest 1V portable DATE OF EXAM: 12/21/2020 COMPARISON: Chest x-ray May 11, 2020 HISTORY: Weakness and shortness of breath. TECHNIQUE: Single AP portable frontal upright view of the chest is obtained. FINDINGS: There is chronic parenchymal change with patchy bibasilar opacities. Stable cardiomegaly w ith atherosclerotic aorta. The osseous structures remain intact. IMPRESSION: Cardiomegaly and chronic proximal changes with new patchy bibasilar acute atelectasis an d/or infiltrate.
[2020-12-21 14:04] LABS: D-Dimer 1.36 mg/L FEU (<0.60)
[2020-12-21] MEDS ORDERED: AZITHROMYCIN 500 MG in SODIUM CHLORIDE 0.9% 250 ML IVPB STA (14:10)
[2020-12-21] MEDS ORDERED: DEXAMETHASONE SOD PHOSPHATE 10 MG/ML 1 ML VIAL IV STA (14:10)
[2020-12-21] MEDS ORDERED: cefTRIAXone IN SWFI 1,000 MG/10 ML SYRINGE IVP STA (14:10)
[2020-12-21] MEDS ORDERED: NALOXONE 0.4 MG/ML 1 ML VIAL IV PRN (14:37)
[2020-12-21 15:46] LABS: C Reactive Protein 388.1 mg/L (<10.0)
[2020-12-21] MEDS ORDERED: ENOXAPARIN 40 MG/0.4 ML SYRINGE SQ SCH (16:45)
[2020-12-21] MEDS: SODIUM CHLORIDE 0.9% 1,000 ML IV SCH (17:00)
[2020-12-21 17:06] LABS: Glucose,Whole Blood 258 mg/dL (75-99)
--- NOTE | 2020-12-21 17:33 | P.CNPUL ---
History of Present Illness Consult date: 12/21/20 Requesting physician: Porfirio Aguirre Reason for consult: dyspnea, cough, hypoxemia, abnormal CXR/CT Chief complaint: Dyspnea, cough, weakness, COVID 19 History of present illness: 75-year-old white male patient, who is very hard of hearing, presents to the emergency department on 12/21/2020 for evaluation of generalized weakness, cough and dyspnea. 8 days ago patient received his first dose of COVID 19 vaccine and for 2 days afterwards he felt fine however 6 days ago he started feeling unwell, developed fever and chills, and a cough which has improved, now he reports generalized weakness and fatigue. Denies any chest pain, denies any abdominal pain, no nausea or vomiting or diarrhea. Emergency department patient was found to be hypoxic with a pulse ox of 84% on room air, requiring supplemental oxygen. His chest x-ray cardiomegaly with new patchy bibasilar infiltrates.COVID 19 PCR was positive. The rest of his admission lab work showed white blood cell count of 16.6, hemoglobin of 15.8, INR is 4.9, d-dimer is 1.3, sodium is 127, chloride is 92, CO2 is 18, B1 of 61, creatinine is 1.72, plasma lactic acid is 3.3, AST was 88, ALT and alk phos were within normal limits, his inflammatory markers are significantly elevated with LDH of 1102, and CRP of 388.1. Patient is currently requiring 4 L of oxygen his pulse ox is 91-95%, he is in atrial fibrillation on the EKG, at times he is tachycardic, patient is on Coumadin for chronic anticoagulation. Does not appear to be in acute respiratory distress, does have occasional cough, no significant phlegm production, other medical history includes history of diabetes mellitus type 2, chronic kidney disease with history of right nephrectomy for benign tumor, history of nicotine dependence, and previous history of GI bleeding in April 2020. Patient was given a dose of azithromycin and Rocephin in the emergency department, pro-calcitonin level has been sent, patient was also started on oral Decadron, and we were asked to see the patient in consultation for evaluation of acute hypoxic respiratory failure. Review of Systems All systems: negative Constitutional: Denies chills, Denies fever Eyes: denies blurred vision, denies pain Ears, nose, mouth and throat: Denies headache, Denies sore throat Cardiovascular: Denies chest pain, Denies shortness of breath Respiratory: Reports cough, Reports dyspnea Gastrointestinal: Denies abdominal pain, Denies diarrhea, Denies nausea, Denies vomiting Musculoskeletal: Denies myalgias Integumentary: Denies pruritus, Denies rash Neurological: Denies numbness, Denies weakness Psychiatric: Denies anxiety, Denies depression Endocrine: Denies fatigue, Denies weight change Past Medical History Past Medical History: Diabetes Mellitus, Hearing Disorder / Deafness, Renal Disease Additional Past Medical History / Comment(s): IDDM type II, R nephrectomy for beign tumor, would to L lower extremity, [place] bilateraloly-uses hearing aides. Pt states he does not know why he is on coumadin or lasix. History of Any Multi-Drug Resistant Organisms: None Reported Past Surgical History: Appendectomy Additional Past Surgical History / Comment(s): right kidney removed for benign tumor, colonoscopy. Past Anesthesia/Blood Transfusion Reactions: No Reported Reaction Additional Past Anesthesia/Blood Transfusion Reaction / Comment(s): Pt is unsure if he received blood during R nephrectomy. Past Psychological History: No Psychological Hx Reported Smoking Status: Former smoker Past Alcohol Use History: None Reported Past Drug Use History: None Reported - Past Family History Father Additional Family Medical History / Comment(s): Father had "heart problems" He at the age of 91 yrs. Mother Family Medical History: Cancer Additional Family Medical History / Comment(s): Mother had cancer at the age of 84 yrs but pt does not recall type. She at the age of 91 yrs. Medications and Allergies Home Medications Medication Instructions Recorded Confirmed Type Aspirin EC [Ecotrin Low Dose] 81 mg PO DAILY 05/10/20 12/21/20 History Ferrous Sulfate [Iron (65 MG 325 mg PO DAILY 05/10/20 12/21/20 History Elemental)] Furosemide [Lasix] 20 mg PO BID 05/10/20 12/21/20 History Insulin Detemir (Levemir) [Levemir] 30 unit SQ HS 05/10/20 12/21/20 History glipiZIDE [Glucotrol] 5 mg PO AC-SUPPER 05/10/20 12/21/20 History glipiZIDE [Glucotrol] 10 mg PO AC-BRKFST 05/10/20 12/21/20 History Pantoprazole Sodium [Protonix] 40 mg PO DAILY #30 tablet. 05/17/20 12/21/20 Rx Potassium Chloride ER [K-Dur 10] 10 meq PO BID 12/21/20 12/21/20 History Warfarin [Coumadin] 2.5 mg PO DIRECTED 12/21/20 12/21/20 History Allergies Allergy/AdvReac Type Severity Reaction Status Date / Time sulfamethoxazole Allergy Weakness Verified 12/21/20 15:08 [From Bactrim] trimethoprim [From Bactrim] Allergy Weakness Verified 12/21/20 15:08 Physical Exam Vitals: Vital Signs Temp Pulse Pulse Resp BP BP Pulse Ox 12/21/20 16:30 113 H 22 159/77 91 L 12/21/20 16:07 97 16 146/76 95 12/21/20 14:29 107 H 16 133/74 95 12/21/20 12:59 97.4 F L 120 H 22 141/77 84 L Intake and Output 12/21/20 12/21/20 12/21/20 06:59 14:59 22:59 Other: Weight 102.058 kg GENERAL EXAM: Alert, 75-year-old white male, who is very hard of hearing on 4 L of oxygen a pulse ox of 91% comfortable in no apparent distress. HEAD: Normocephalic/atraumatic. EYES: Normal reaction of pupils, equal size. Conjunctiva pink, sclera white. NOSE: Clear with pink turbinates. THROAT: No erythema or exudates. NECK: No masses, no JVD, no thyroid enlargement, no adenopathy. CHEST: No chest wall deformity. Symmetrical expansion. LUNGS: Equal air entry with no crackles, wheeze, rhonchi or dullness. CVS: Regular rate and rhythm, normal S1 and S2, no gallops, no murmurs, no rubs ABDOMEN: Soft, nontender. No hepatosplenomegaly, normal bowel sounds, no guarding or rigidity. EXTREMITIES: No clubbing, no edema, no cyanosis, 2+ pulses and upper and lower extremities. MUSCULOSKELETAL: Muscle strength and tone normal. SPINE: No scoliosis or deformity SKIN: No rashes CENTRAL NERVOUS SYSTEM: Alert and oriented -3. No focal deficits, tone is normal in all 4 extremities. PSYCHIATRIC: Alert and oriented -3. Appropriate affect. Intact judgment and insight. Results - Laboratory Findings CBC and BMP: 12/21/20 13:24 12/21/20 13:24 PT/INR, D-dimer PT 47.4 sec (9.0-12.0) H 12/21/20 13:24 INR 4.9 (<1.2) H 12/21/20 13:24 D-Dimer 1.36 mg/L FEU (<0.60) H 12/21/20 13:24 Abnormal lab findings: Abnormal Labs 12/21/20 12/21/20 12/21/20 13:24 13:24 13:24 WBC 16.6 H RBC 5.94 H MCV 78.8 L RDW 16.7 H Neutrophils # 15.9 H Lymphocytes # 0.2 L PT 47.4 H INR 4.9 H APTT 41.3 H D-Dimer 1.36 H Sodium 127 L Chloride 92 L Carbon Dioxide 18 L BUN 61 H Creatinine 1.72 H Glucose 277 H POC Glucose (mg/dL) Plasma Lactic Acid Humble Calcium 8.2 L Magnesium 2.4 H Total Bilirubin 4.3 H AST 88 H Lactate Dehydrogenase 1102 H C-Reactive Protein 388.1 H Total Protein 6.2 L Albumin 3.3 L Coronavirus (PCR) 12/21/20 12/21/20 12/21/20 13:24 13:24 17:03 WBC RBC MCV RDW Neutrophils # Lymphocytes # PT INR APTT D-Dimer Sodium Chloride Carbon Dioxide BUN Creatinine Glucose POC Glucose (mg/dL) 258 H Plasma Lactic Acid Humble 3.3 H* Calcium Magnesium Total Bilirubin AST Lactate Dehydrogenase C-Reactive Protein Total Protein Albumin Coronavirus (PCR) Detected A - Diagnostic Findings Chest x-ray: report reviewed, image reviewed Assessment and Plan Plan: Assessment: #1. Acute hypoxic respiratory failure related to acute COVID 19 pneumonia, onset of symptoms was 6 days ago prior to presentation. Patient received first dose of COVID 19 vaccine on 12/13/2020. Patient did have exposure to his girlfriend who is COVID 19 positive #2. Diabetes mellitus type 2 #3. History of right nephrectomy for benign tumor #4. Hard of hearing #5. Former smoker #6. Chronic A. fib on Coumadin #7. Hyponatremia, likely hypovolemic Plan: We'll continue Decadron, start the patient on Remdesivir treatment. We'll place the patient on Lovenox 40 mg daily, repeat PT/INR tomorrow, we'll continue gentle IV hydration. Follow-up labs and inflammatory markers tomorrow. Send a pro calcitonin level I performed a history & physical examination of the patient and discussed their management with my nurse practitioner, Ene Antunez. I reviewed the nurse practitioner's note and agree with the documented findings and plan of care. Lung sounds are positive for diminished breath sounds. The findings and the impression was discussed with the patient. I attest to the documentation by the nurse practitioner. Time with Patient: Greater than 30
[2020-12-21] MEDS ORDERED: REMDESIVIR 200 MG in SODIUM CHLORIDE 0.9% 250 ML IVPB ONE (18:00)
[2020-12-21] MEDS: CHOLECALCIFEROL 25 MCG (1000 IU) TABLET PO SCH (18:44)
[2020-12-21] MEDS: ZINC SULFATE 220 MG CAP PO SCH (18:44)
[2020-12-21] MEDS: ASCORBIC ACID 500 MG TAB PO SCH (18:44)
[2020-12-21 20:51] LABS: Glucose,Whole Blood 324 mg/dL (75-99)
[2020-12-21] MEDS: INSULIN ASPART (NovoLOG) 100 UNIT/ML VIAL SQ SCH (20:51)
--- NOTE | 2020-12-21 22:56 | P.HPIM ---
History of Present Illness H&P Date: 12/21/20 Chief Complaint: Generalized weakness Patient is a 75-year-old male with a known history of diabetes type 2, hearing disorder/deafness, right nephrectomy for benign tumor, history of DVTs currently on anticoagulation with Coumadin due to atrial fibrillation and prior history of smoking presented to the ER due to complaints of generalized weakness and shortness of breath and exertional dyspnea for the past 7 to 8 days. Patient received his Covid vaccine first dose on December 10, 2020. According to his patient has been having generalized weakness and not feeling well since his vaccination but got worse last 2 days. Patient has been having subjective fever and chills. Cough without sputum production. Denies any chest pain. Patient has been having generalized weakness and fatigue and unable to get out of bed. No nausea vomiting or diarrhea. Denied any abdominal pain. Otherwise no recent illnesses. Chest x-ray showed cardiomegaly and chronic proximal changes with new patchy bilateral acute atelectasis and/or infiltrate. EKG showed atrial fibrillation with rapid ventricular rate. WBC 16.6, hemoglobin 15.8 and RDW 16.7 and platelets 228 D-dimer 1.36 Sodium 127 potassium 4.4 chloride 92, bicarb is 18 BUN 61 and creatinine 1.72 and blood sugar 277 Lactic acid 3.3 Magnesium 2.4 LDH is 10/12/2001 Troponin 0 0.015, CRP 388, proBNP 1360 and coronavirus PCR is not detected. INR 4.9 Patient was tachycardic and pulse ox 84% on room air on admission. Review of Systems Complete review of systems could not be obtained from the patient. Past Medical History Past Medical History: Diabetes Mellitus, Hearing Disorder / Deafness, Renal Disease Additional Past Medical History / Comment(s): IDDM type II, R nephrectomy for beign tumor, would to L lower extremity, [place] bilateraloly-uses hearing aides. Pt states he does not know why he is on coumadin or lasix. History of Any Multi-Drug Resistant Organisms: None Reported Past Surgical History: Appendectomy Additional Past Surgical History / Comment(s): right kidney removed for benign tumor, colonoscopy. Past Anesthesia/Blood Transfusion Reactions: No Reported Reaction Additional Past Anesthesia/Blood Transfusion Reaction / Comment(s): Pt is unsure if he received blood Past Psychological History: No Psychological Hx Reported Smoking Status: Former smoker Past Alcohol Use History: None Reported Additional Past Alcohol Use History / Comment(s): Pt started smoking in 1961 and quit in 2019 Past Drug Use History: None Reported - Past Family History Father Additional Family Medical History / Comment(s): Father had "heart problems" He at the age of 91 yrs. Mother Family Medical History: Cancer Additional Family Medical History / Comment(s): Mother had cancer at the age of 84 yrs but pt does not recall type. She at the age of 91 yrs. Medications and Allergies Home Medications Medication Instructions Recorded Confirmed Type Aspirin EC [Ecotrin Low Dose] 81 mg PO DAILY 05/10/20 12/21/20 History Ferrous Sulfate [Iron (65 MG 325 mg PO DAILY 05/10/20 12/21/20 History Elemental)] Furosemide [Lasix] 20 mg PO BID 05/10/20 12/21/20 History Insulin Detemir (Levemir) [Levemir] 30 unit SQ HS 05/10/20 12/21/20 History glipiZIDE [Glucotrol] 5 mg PO AC-SUPPER 05/10/20 12/21/20 History glipiZIDE [Glucotrol] 10 mg PO AC-BRKFST 05/10/20 12/21/20 History Pantoprazole Sodium [Protonix] 40 mg PO DAILY #30 tablet. 05/17/20 12/21/20 Rx Potassium Chloride ER [K-Dur 10] 10 meq PO BID 12/21/20 12/21/20 History Warfarin [Coumadin] 2.5 mg PO DIRECTED 12/21/20 12/21/20 History Allergies Allergy/AdvReac Type Severity Reaction Status Date / Time sulfamethoxazole Allergy Weakness Verified 12/21/20 15:08 [From Bactrim] trimethoprim [From Bactrim] Allergy Weakness Verified 12/21/20 15:08 Physical Exam Vitals: Vital Signs Temp Pulse Pulse Resp BP BP Pulse Ox 12/21/20 16:30 113 H 22 159/77 91 L 12/21/20 16:07 97 16 146/76 95 12/21/20 14:29 107 H 16 133/74 95 12/21/20 12:59 97.4 F L 120 H 22 141/77 84 L Intake and Output 12/21/20 12/21/20 12/21/20 06:59 14:59 22:59 Intake Total 195 Balance 195 Intake: IV 75 Sodium Chloride 0.9% 1, 75 000 ml @ 75 mls/hr IV . [id number] [facility] Rx#:[id number] Oral 120 Other: Weight 102.058 kg 86.5 kg PHYSICAL EXAMINATION: Patient is currently lying in the bed awake alert but lethargic and drowsy. HEENT: Normocephalic. Neck is supple. Pupils reactive. Nostrils clear. Oral cavity is moist. Ears reveal no drainage. Neck reveals no JVD, carotid bruits, or thyromegaly. CHEST EXAMINATION: Trachea is central. Symmetrical expansion. Bibasilar diminished air entry. CARDIAC: Normal S1, S2 with no gallops. No murmurs ABDOMEN: Soft. Bowel sounds normal. No organomegaly. No abdominal bruits. Extremities: 2+ b/l edema. No clubbing or cyanosis Neurologically awake, alert, oriented x1 with well-coordinated movements. No focal deficits noted Skin: No rash or skin lesions. Psychiatric: Coperative. Musculoskeletal: No joint swelling or deformity. Results CBC & Chem 7: 12/21/20 13:24 12/21/20 13:24 Labs: Abnormal Lab Results - Last 24 Hours (Table) 12/21/20 12/21/20 12/21/20 Range/Units 13:24 13:24 13:24 WBC 16.6 H (3.8-10.6) k/uL RBC 5.94 H (4.30-5.90) m/uL MCV 78.8 L (80.0-100.0) fL RDW 16.7 H (11.5-15.5) % Neutrophils # 15.9 H (1.3-7.7) k/uL Lymphocytes # 0.2 L (1.0-4.8) k/uL PT 47.4 H (9.0-12.0) sec INR 4.9 H (<1.2) APTT 41.3 H (22.0-30.0) sec D-Dimer 1.36 H (<0.60) mg/L FEU Sodium 127 L (137-145) mmol/L Chloride 92 L (98-107) mmol/L Carbon Dioxide 18 L (22-30) mmol/L BUN 61 H (9-20) mg/dL Creatinine 1.72 H (0.66-1.25) mg/dL Glucose 277 H (74-99) mg/dL POC Glucose (mg/dL) (75-99) mg/dL Plasma Lactic Acid Humble (0.7-2.0) mmol/L Calcium 8.2 L (8.4-10.2) mg/dL Magnesium 2.4 H (1.6-2.3) mg/dL Total Bilirubin 4.3 H (0.2-1.3) mg/dL AST 88 H (17-59) U/L Lactate Dehydrogenase 1102 H (313-618) U/L C-Reactive Protein 388.1 H (<10.0) mg/L Total Protein 6.2 L (6.3-8.2) g/dL Albumin 3.3 L (3.5-5.0) g/dL Coronavirus (PCR) (Not Detectd) 12/21/20 12/21/20 12/21/20 Range/Units 13:24 13:24 17:03 WBC (3.8-10.6) k/uL RBC (4.30-5.90) m/uL MCV (80.0-100.0) fL RDW (11.5-15.5) % Neutrophils # (1.3-7.7) k/uL Lymphocytes # (1.0-4.8) k/uL PT (9.0-12.0) sec INR (<1.2) APTT (22.0-30.0) sec D-Dimer (<0.60) mg/L FEU Sodium (137-145) mmol/L Chloride (98-107) mmol/L Carbon Dioxide (22-30) mmol/L BUN (9-20) mg/dL Creatinine (0.66-1.25) mg/dL Glucose (74-99) mg/dL POC Glucose (mg/dL) 258 H (75-99) mg/dL Plasma Lactic Acid Humble 3.3 H* (0.7-2.0) mmol/L Calcium (8.4-10.2) mg/dL Magnesium (1.6-2.3) mg/dL Total Bilirubin (0.2-1.3) mg/dL AST (17-59) U/L Lactate Dehydrogenase (313-618) U/L C-Reactive Protein (<10.0) mg/L Total Protein (6.3-8.2) g/dL Albumin (3.5-5.0) g/dL Coronavirus (PCR) Detected A (Not Detectd) Thrombosis Risk Factor Assmnt - DVT/VTE Prophylaxis DVT/VTE Prophylaxis: Pharmacologic Prophylaxis ordered - Choose All That Apply Each Risk Factor Represents 3 Points: Age 75 years or older Thrombosis Risk Factor Assessment Total Risk Factor Score: 3 Thrombosis Risk Factor Assessment Level: Moderate Risk Assessment and Plan Assessment: Acute hypoxic respiratory failure secondary to COVID-19 pneumonia Elevated inflammatory markers Chronic atrial fibrillation with rapid ventricular rate Coumadin coagulopathy with INR 4.9 Lactic acidosis with level 3.3 Hypovolemic hyponatremia Acute kidney injury likely prerenal with possible ATN. CKD stage III Hyperglycemia with uncontrolled diabetes type 2 History of right nephrectomy for benign tumor Hearing disordersdeafness Previous history of smoking GI prophylaxis with PPI Plan: Patient will be continued on oxygen supplementation, IV hydration and symptomatic management. Patient was started on dexamethasone and remdesivir course. Monitor electrolytes and continue with insulin dosing and titrate as needed. Coumadin is on hold due to coagulopathy. Patient will be started on therapeutic Lovenox dose once INR comes down. Pulmonary is on board and further recommendations based on clinical course. Prognosis guarded at this time. Time with Patient: Greater than 30
[2020-12-21] MEDS ORDERED: METOPROLOL TARTRATE 25 MG TAB PO SCH (23:00)
[2020-12-21] MEDS: INSULIN DETEMIR (LEVEMIR) 100 UNIT/ML SYR SQ SCH (23:26)
[2020-12-22] MEDS: SODIUM CHLORIDE 0.9% 1,000 ML IV SCH ×2 (05:09→14:19)
[2020-12-22] MEDS: PANTOPRAZOLE 40 MG TABLET PO SCH (06:00)
[2020-12-22 06:17] LABS: Glucose,Whole Blood 310 mg/dL (75-99)
[2020-12-22] MEDS: INSULIN ASPART (NovoLOG) 100 UNIT/ML VIAL SQ SCH ×6 (06:18→20:49)
[2020-12-22 06:33] LABS: Anisocytosis Slight; Basophils % (A) 0 %; Eosinophils % (A) 0 %; HCT 44.3 % (39.0-53.0); HGB 15.4 gm/dL (13.0-17.5); Lymphocytes # (A) 0.2 k/uL (1.0-4.8); Lymphocytes % (A) 2 %; MCH 27.8 pg (25.0-35.0); MCHC 34.8 g/dL (31.0-37.0); MCV 79.8 fL (80.0-100.0); Mean Platelet Volume 7.9; Microcytosis Slight; Monocytes # (A) 0.4 k/uL (0-1.0); Monocytes % (A) 3 %; Neutrophils # (A) 10.8 k/uL (1.3-7.7); Neutrophils % (A) 94 %; Platelet Count 216 k/uL (150-450); Poikilocytosis Slight; RBC 5.55 m/uL (4.30-5.90); RDW 16.7 % (11.5-15.5); WBC 11.5 k/uL (3.8-10.6)
[2020-12-22 06:47] LABS: Calcium 7.8 mg/dL (8.4-10.2); Potassium 4.3 mmol/L (3.5-5.1)
[2020-12-22 07:06] LABS: D-Dimer 1.79 mg/L FEU (<0.60); Prothrombin Time 50.2 sec (9.0-12.0)
[2020-12-22 07:07] LABS: INR 5.2 (<1.2)
[2020-12-22 07:15] LABS: C Reactive Protein 367.9 mg/L (<10.0)
--- NOTE | 2020-12-22 07:36 | XR ---
EXAMINATION TYPE: XR chest 1V portable DATE OF EXAM: 12/22/2020 COMPARISON: 12/21/2020 HISTORY: Covid 19 TECHNIQUE: Single frontal view of the chest is obtained. FINDINGS the lungs are clear consolidative, interstitial masslike opacity. There is no pleural effusion, pleural thickening or pneumothorax. The heart size is normal pulmonary vasculature is not congested. The osseous structures are intact. Impression: no acute cardiopulmonary disease.
[2020-12-22] MEDS: CHOLECALCIFEROL 25 MCG (1000 IU) TABLET PO SCH (08:34)
[2020-12-22] MEDS: METOPROLOL TARTRATE 25 MG TAB PO SCH ×2 (08:34→19:36)
[2020-12-22] MEDS: ZINC SULFATE 220 MG CAP PO SCH (08:34)
[2020-12-22] MEDS: ASCORBIC ACID 500 MG TAB PO SCH ×2 (08:35→19:36)
[2020-12-22] MEDS: dexAMETHasone 2 MG TAB PO SCH (08:35)
[2020-12-22 11:54] LABS: Glucose,Whole Blood 408 mg/dL (75-99)
[2020-12-22] MEDS: AZITHROMYCIN 500 MG in SODIUM CHLORIDE 0.9% 250 ML IVPB SCH (12:28)
--- NOTE | 2020-12-22 13:35 | P.PN ---
Subjective Progress Note Date: 12/22/20 Principal diagnosis: Acute hypoxic respiratory failure secondary to acute covid 19 pneumonia and possibly community-acquired pneumonia/streptococcal pneumonia 75-year-old white male patient, who is very hard of hearing, presents to the emergency department on 12/21/2020 for evaluation of generalized weakness, cough and dyspnea. 8 days ago patient received his first dose of COVID 19 vaccine and for 2 days afterwards he felt fine however 6 days ago he started feeling unwell, developed fever and chills, and a cough which has improved, now he reports generalized weakness and fatigue. Denies any chest pain, denies any abdominal pain, no nausea or vomiting or diarrhea. Emergency department patient was found to be hypoxic with a pulse ox of 84% on room air, requiring supplemental oxygen. His chest x-ray cardiomegaly with new patchy bibasilar infiltrates.COVID 19 PCR was positive. The rest of his admission lab work showed white blood cell count of 16.6, hemoglobin of 15.8, INR is 4.9, d-dimer is 1.3, sodium is 127, chloride is 92, CO2 is 18, B1 of 61, creatinine is 1.72, plasma lactic acid is 3.3, AST was 88, ALT and alk phos were within normal limits, his inflammatory markers are significantly elevated with LDH of 1102, and CRP of 388.1. Patient is currently requiring 4 L of oxygen his pulse ox is 91-95%, he is in atrial fibrillation on the EKG, at times he is tachycardic, patient is on Coumadin for chronic anticoagulation. Does not appear to be in acute respiratory distress, does have occasional cough, no significant phlegm production, other medical history includes history of diabetes mellitus type 2, chronic kidney disease with history of right nephrectomy for benign tumor, history of nicotine dependence, and previous history of GI bleeding in April 2020. Patient was given a dose of azithromycin and Rocephin in the emergency department, pro-calcitonin level has been sent, patient was also started on oral Decadron, and we were asked to see the patient in consultation for evaluation of acute hypoxic respiratory failure. Patient was reevaluated today on 12/22/2020, patient is doing surprisingly well. Denies being short of breath, patient is extremely hard of hearing. Denies cough wheezing denies any fever or chills. Denies any GI symptoms. He is on 4 L nasal cannula, and his O2 saturation is 97%. Follow-up chest x-ray is basically unremarkable, his initial chest x-ray however showed patchy bibasilar infiltrates. Blood cultures are positive for Streptococcus pneumoniae and the patient is covered with Rocephin. Murillo virus PCR was detected on admission. Hence I believe were dealing with mostly likely a combined pneumonia secondary to Murillo virus and secondary to Streptococcus pneumonia. WBC count is improving down to 11.5 today. Hemoglobin is 15.4. INR is 5.4. D-dimer is 1.79. LDH is 1197 and C-reactive protein is 367 both are basically relatively unchanged from admission. Objective - Vital Signs Vital signs: Vital Signs Temp 98 F 12/22/20 12:00 Pulse 87 12/22/20 12:00 Resp 18 12/22/20 12:00 BP 143/87 12/22/20 12:00 Pulse Ox 97 12/22/20 12:00 Intake & Output 12/21/20 12/22/20 12/22/20 18:59 06:59 18:59 Intake Total 195 Output Total 1000 Balance 195 -1000 Weight 86.5 kg 76.5 kg Intake: IV 75 Sodium Chloride 0.9% 1, 75 000 ml @ 75 mls/hr IV . [id number] [facility] Rx#:[id number] Oral 120 Output: Urine 1000 - Exam Physical Exam: Revealed a 75-year-old white male sitting at a bedside chair, on 4 L nasal cannula, hard of hearing, in no distress, patient tells me that he is asymptomatic. Head: Atraumatic, normocephalic. HEENT:[Neck is supple.] [No neck masses.] [No thyromegaly.] [No JVD.] Chest: [Minimal fine crackles at the bases. No rhonchi and no wheezes. Cardiac Exam: [Normal S1 and S2, no S3 gallop, no murmur.] Abdomen: [Soft, nontender, no megaly, no rebound, no guarding, normal bowel sounds.] Extremities: [No clubbing, no edema, no cyanosis.] Neurological Exam: [No focal neurologic deficit.] Alert and oriented 3, however he is extremely hard of hearing. Psychiatric: Normal mood, affect and normal mental status examination. Skin: No rashes. Musculoskeletal: No deformities and no limitation in range of motion. - Labs CBC & Chem 7: 12/22/20 05:44 12/22/20 05:44 Labs: Abnormal Lab Results - Last 24 Hours (Table) 12/21/20 12/21/20 12/21/20 Range/Units 13:24 13:24 13:24 WBC 16.6 H (3.8-10.6) k/uL RBC 5.94 H (4.30-5.90) m/uL MCV 78.8 L (80.0-100.0) fL RDW 16.7 H (11.5-15.5) % Neutrophils # 15.9 H (1.3-7.7) k/uL Lymphocytes # 0.2 L (1.0-4.8) k/uL PT 47.4 H (9.0-12.0) sec INR 4.9 H (<1.2) APTT 41.3 H (22.0-30.0) sec D-Dimer 1.36 H (<0.60) mg/L FEU Sodium 127 L (137-145) mmol/L Chloride 92 L (98-107) mmol/L Carbon Dioxide 18 L (22-30) mmol/L BUN 61 H (9-20) mg/dL Creatinine 1.72 H (0.66-1.25) mg/dL Glucose 277 H (74-99) mg/dL POC Glucose (mg/dL) (75-99) mg/dL Plasma Lactic Acid Humble (0.7-2.0) mmol/L Calcium 8.2 L (8.4-10.2) mg/dL Magnesium 2.4 H (1.6-2.3) mg/dL Total Bilirubin 4.3 H (0.2-1.3) mg/dL AST 88 H (17-59) U/L Lactate Dehydrogenase 1102 H (313-618) U/L C-Reactive Protein 388.1 H (<10.0) mg/L Total Protein 6.2 L (6.3-8.2) g/dL Albumin 3.3 L (3.5-5.0) g/dL Procalcitonin (0.02-0.09) ng/mL Coronavirus (PCR) (Not Detectd) 12/21/20 12/21/20 12/21/20 Range/Units 13:24 13:24 15:05 WBC (3.8-10.6) k/uL RBC (4.30-5.90) m/uL MCV (80.0-100.0) fL RDW (11.5-15.5) % Neutrophils # (1.3-7.7) k/uL Lymphocytes # (1.0-4.8) k/uL PT (9.0-12.0) sec INR (<1.2) APTT (22.0-30.0) sec D-Dimer (<0.60) mg/L FEU Sodium (137-145) mmol/L Chloride (98-107) mmol/L Carbon Dioxide (22-30) mmol/L BUN (9-20) mg/dL Creatinine (0.66-1.25) mg/dL Glucose (74-99) mg/dL POC Glucose (mg/dL) (75-99) mg/dL Plasma Lactic Acid Humble 3.3 H* (0.7-2.0) mmol/L Calcium (8.4-10.2) mg/dL Magnesium (1.6-2.3) mg/dL Total Bilirubin (0.2-1.3) mg/dL AST (17-59) U/L Lactate Dehydrogenase (313-618) U/L C-Reactive Protein (<10.0) mg/L Total Protein (6.3-8.2) g/dL Albumin (3.5-5.0) g/dL Procalcitonin 17.97 H (0.02-0.09) ng/mL Coronavirus (PCR) Detected A (Not Detectd) 12/21/20 12/21/20 12/21/20 Range/Units 17:03 18:38 20:29 WBC (3.8-10.6) k/uL RBC (4.30-5.90) m/uL MCV (80.0-100.0) fL RDW (11.5-15.5) % Neutrophils # (1.3-7.7) k/uL Lymphocytes # (1.0-4.8) k/uL PT (9.0-12.0) sec INR (<1.2) APTT (22.0-30.0) sec D-Dimer (<0.60) mg/L FEU Sodium (137-145) mmol/L Chloride (98-107) mmol/L Carbon Dioxide (22-30) mmol/L BUN (9-20) mg/dL Creatinine (0.66-1.25) mg/dL Glucose (74-99) mg/dL POC Glucose (mg/dL) 258 H 324 H (75-99) mg/dL Plasma Lactic Acid Humble 2.7 H* (0.7-2.0) mmol/L Calcium (8.4-10.2) mg/dL Magnesium (1.6-2.3) mg/dL Total Bilirubin (0.2-1.3) mg/dL AST (17-59) U/L Lactate Dehydrogenase (313-618) U/L C-Reactive Protein (<10.0) mg/L Total Protein (6.3-8.2) g/dL Albumin (3.5-5.0) g/dL Procalcitonin (0.02-0.09) ng/mL Coronavirus (PCR) (Not Detectd) 12/21/20 12/22/20 12/22/20 Range/Units 21:59 05:44 05:44 WBC (3.8-10.6) k/uL RBC (4.30-5.90) m/uL MCV (80.0-100.0) fL RDW (11.5-15.5) % Neutrophils # (1.3-7.7) k/uL Lymphocytes # (1.0-4.8) k/uL PT 50.2 H (9.0-12.0) sec INR 5.2 H* (<1.2) APTT (22.0-30.0) sec D-Dimer 1.79 H (<0.60) mg/L FEU Sodium 131 L (137-145) mmol/L Chloride (98-107) mmol/L Carbon Dioxide 19 L (22-30) mmol/L BUN 55 H (9-20) mg/dL Creatinine (0.66-1.25) mg/dL Glucose 306 H (74-99) mg/dL POC Glucose (mg/dL) (75-99) mg/dL Plasma Lactic Acid Humble 2.3 H* (0.7-2.0) mmol/L Calcium 7.8 L (8.4-10.2) mg/dL Magnesium (1.6-2.3) mg/dL Total Bilirubin (0.2-1.3) mg/dL AST (17-59) U/L Lactate Dehydrogenase 1197 H (313-618) U/L C-Reactive Protein 367.9 H (<10.0) mg/L Total Protein (6.3-8.2) g/dL Albumin (3.5-5.0) g/dL Procalcitonin (0.02-0.09) ng/mL Coronavirus (PCR) (Not Detectd) 12/22/20 12/22/20 12/22/20 Range/Units 05:44 06:15 11:53 WBC 11.5 H (3.8-10.6) k/uL RBC (4.30-5.90) m/uL MCV 79.8 L (80.0-100.0) fL RDW 16.7 H (11.5-15.5) % Neutrophils # 10.8 H (1.3-7.7) k/uL Lymphocytes # 0.2 L (1.0-4.8) k/uL PT (9.0-12.0) sec INR (<1.2) APTT (22.0-30.0) sec D-Dimer (<0.60) mg/L FEU Sodium (137-145) mmol/L Chloride (98-107) mmol/L Carbon Dioxide (22-30) mmol/L BUN (9-20) mg/dL Creatinine (0.66-1.25) mg/dL Glucose (74-99) mg/dL POC Glucose (mg/dL) 310 H 408 H (75-99) mg/dL Plasma Lactic Acid Humble (0.7-2.0) mmol/L Calcium (8.4-10.2) mg/dL Magnesium (1.6-2.3) mg/dL Total Bilirubin (0.2-1.3) mg/dL AST (17-59) U/L Lactate Dehydrogenase (313-618) U/L C-Reactive Protein (<10.0) mg/L Total Protein (6.3-8.2) g/dL Albumin (3.5-5.0) g/dL Procalcitonin (0.02-0.09) ng/mL Coronavirus (PCR) (Not Detectd) Microbiology - Last 24 Hours (Table) 12/21/20 14:20 Blood Culture Gram Stain - Preliminary Blood Blood Culture - Preliminary Streptococcus pneumoniae 12/21/20 14:20 Blood Culture Gram Stain - Preliminary Blood 12/21/20 14:20 Blood Culture - Final Blood 12/21/20 14:20 Blood Culture - Final Blood Assessment and Plan Assessment: Impression: Acute hypoxic respiratory failure secondary to covid 19 pneumonitis, and likely secondary to Streptococcus pneumonia. Type 2 diabetes. History of right nephrectomy for benign tumor. Ex-smoker. Chronic atrial fibrillation, maintained on Coumadin. Hypovolemic hyponatremia. Recommendation: Continue oxygen and titrate accordingly. Continue the Covid 19 cocktails. Continue remdesivir Continue Rocephin. And Zithromax. Continue Decadron. Continue insulin and close monitoring of the sugars. Continue to monitor coagulation profile while on Coumadin. And address accordingly. We'll continue to follow. Time with Patient: Less than 30
[2020-12-22 13:51] VITALS: BMI 24.2
[2020-12-22 13:51] LABS: Hemoglobin A1C 7.5 % (4.0-6.0)
[2020-12-22 16:15] LABS: Ferritin 1651.4 ng/mL (22.0-322.0)
[2020-12-22 16:24] LABS: Glucose,Whole Blood 224 mg/dL (75-99)
[2020-12-22] MEDS: REMDESIVIR 100 MG in SODIUM CHLORIDE 0.9% 250 ML IVPB SCH (16:41)
[2020-12-22 20:27] LABS: Glucose,Whole Blood 262 mg/dL (75-99)
[2020-12-22 20:34] LABS: Prothrombin Time 38.5 sec (9.0-12.0)
[2020-12-22] MEDS: INSULIN DETEMIR (LEVEMIR) 100 UNIT/ML SYR SQ SCH (20:50)
[2020-12-23] MEDS: PANTOPRAZOLE 40 MG TABLET PO SCH (05:08)
[2020-12-23] MEDS: SODIUM CHLORIDE 0.9% 1,000 ML IV SCH ×2 (05:09→20:58)
[2020-12-23 06:24] LABS: INR 3.1 (<1.2); Prothrombin Time 29.4 sec (9.0-12.0)
[2020-12-23 06:55] LABS: Glucose,Whole Blood 259 mg/dL (75-99)
[2020-12-23] MEDS: METOPROLOL TARTRATE 25 MG TAB PO SCH ×2 (09:33→20:40)
[2020-12-23] MEDS: ASCORBIC ACID 500 MG TAB PO SCH ×2 (09:33→20:40)
[2020-12-23] MEDS: CHOLECALCIFEROL 25 MCG (1000 IU) TABLET PO SCH (09:33)
[2020-12-23] MEDS: INSULIN ASPART (NovoLOG) 100 UNIT/ML VIAL SQ SCH ×7 (09:33→20:42)
[2020-12-23] MEDS: ZINC SULFATE 220 MG CAP PO SCH (09:33)
[2020-12-23] MEDS: dexAMETHasone 2 MG TAB PO SCH (09:34)
[2020-12-23 11:38] LABS: Glucose,Whole Blood 323 mg/dL (75-99)
[2020-12-23] MEDS: AZITHROMYCIN 500 MG in SODIUM CHLORIDE 0.9% 250 ML IVPB SCH (13:52)
--- NOTE | 2020-12-23 14:24 | P.PN ---
Subjective Progress Note Date: 12/23/20 Principal diagnosis: Acute hypoxic respiratory failure secondary to acute CoVID 19 pneumonia and community-acquired pneumonia/streptococcal 75-year-old white male patient, who is very hard of hearing, presents to the emergency department on 12/21/2020 for evaluation of generalized weakness, cough and dyspnea. 8 days ago patient received his first dose of COVID 19 vaccine and for 2 days afterwards he felt fine however 6 days ago he started feeling unwell, developed fever and chills, and a cough which has improved, now he reports generalized weakness and fatigue. Denies any chest pain, denies any abdominal pain, no nausea or vomiting or diarrhea. Emergency department patient was found to be hypoxic with a pulse ox of 84% on room air, requiring supplemental oxygen. His chest x-ray cardiomegaly with new patchy bibasilar infiltrates.COVID 19 PCR was positive. The rest of his admission lab work showed white blood cell count of 16.6, hemoglobin of 15.8, INR is 4.9, d-dimer is 1.3, sodium is 127, chloride is 92, CO2 is 18, B1 of 61, creatinine is 1.72, plasma lactic acid is 3.3, AST was 88, ALT and alk phos were within normal limits, his inflammatory markers are significantly elevated with LDH of 1102, and CRP of 388.1. Patient is currently requiring 4 L of oxygen his pulse ox is 91-95%, he is in atrial fibrillation on the EKG, at times he is tachycardic, patient is on Coumadin for chronic anticoagulation. Does not appear to be in acute respiratory distress, does have occasional cough, no significant phlegm production, other medical history includes history of diabetes mellitus type 2, chronic kidney disease with history of right nephrectomy for benign tumor, history of nicotine dependence, and previous history of GI bleeding in April 2020. Patient was given a dose of azithromycin and Rocephin in the emergency department, pro-calcitonin level has been sent, patient was also started on oral Decadron, and we were asked to see the patient in consultation for evaluation of acute hypoxic respiratory failure. Patient was reevaluated today on 12/22/2020, patient is doing surprisingly well. Denies being short of breath, patient is extremely hard of hearing. Denies cough wheezing denies any fever or chills. Denies any GI symptoms. He is on 4 L nasal cannula, and his O2 saturation is 97%. Follow-up chest x-ray is basically unremarkable, his initial chest x-ray however showed patchy bibasilar infiltrates. Blood cultures are positive for Streptococcus pneumoniae and the patient is covered with Rocephin. Murillo virus PCR was detected on admission. Hence I believe were dealing with mostly likely a combined pneumonia secondary to Murillo virus and secondary to Streptococcus pneumonia. WBC count is improving down to 11.5 today. Hemoglobin is 15.4. INR is 5.4. D-dimer is 1.79. LDH is 1197 and C-reactive protein is 367 both are basically relatively unchanged from admission. The patient is seen today 12/23/2020 in follow-up on the regular medical floor. He is doing very well. Sitting up in a chair at the bedside. Denies any wo rsening shortness of breath, cough or congestion. He is maintaining O2 saturation 98% on 3 L/m. This is day #3 of Remdesivir. INR 3.1. Blood cultures are positive for Streptococcus pneumoniae. Follow-up blood culture revealing no growth to date. He remains on ceftriaxone and azithromycin. He had dexamethasone, vitamin supplements. Objective - Vital Signs Vital signs: Vital Signs Temp 97.6 F 12/23/20 13:53 Pulse 74 12/23/20 13:53 Resp 18 12/23/20 13:53 BP 145/85 12/23/20 13:53 Pulse Ox 96 12/23/20 13:53 Intake & Output 12/22/20 12/23/20 12/23/20 17:59 06:59 18:59 Intake Total Output Total 750 Balance -750 Weight Intake: Oral Output: Urine 750 - Exam GENERAL EXAM: Alert, pleasant 75-year-old gentleman, on 3 L nasal cannula, comfortable in no apparent distress. HEAD: Normocephalic. EYES: Normal reaction of pupils, equal size. NOSE: Clear with pink turbinates. THROAT: No erythema or exudates. NECK: No masses, no JVD. CHEST: No chest wall deformity. LUNGS: Equal air entry with bibasilar crackles CVS: S1 and S2 normal with no audible murmur, regular rhythm. ABDOMEN: No hepatosplenomegaly, normal bowel sounds, no guarding or rigidity. SPINE: No scoliosis or deformity SKIN: No rashes CENTRAL NERVOUS SYSTEM: No focal deficits, tone is normal in all 4 extremities. EXTREMITIES: There is no peripheral edema. No clubbing, no cyanosis. Peripheral pulses are intact. - Labs CBC & Chem 7: 12/22/20 05:44 12/22/20 05:44 Labs: Abnormal Lab Results - Last 24 Hours (Table) 12/21/20 12/22/20 12/22/20 Range/Units 13:24 05:44 16:22 PT (9.0-12.0) sec INR (<1.2) POC Glucose (mg/dL) 224 H (75-99) mg/dL Hemoglobin A1c 7.5 H (4.0-6.0) % Ferritin 1651.4 H (22.0-322.0) ng/mL 12/22/20 12/22/20 12/23/20 Range/Units 20:02 20:21 05:21 PT 38.5 H 29.4 H (9.0-12.0) sec INR 4.0 H 3.1 H (<1.2) POC Glucose (mg/dL) 262 H (75-99) mg/dL Hemoglobin A1c (4.0-6.0) % Ferritin (22.0-322.0) ng/mL 12/23/20 12/23/20 Range/Units 06:55 11:36 PT (9.0-12.0) sec INR (<1.2) POC Glucose (mg/dL) 259 H 323 H (75-99) mg/dL Hemoglobin A1c (4.0-6.0) % Ferritin (22.0-322.0) ng/mL Microbiology - Last 24 Hours (Table) 12/22/20 05:44 Blood Culture - Preliminary Blood No Growth after 24 hours 12/21/20 14:20 Blood Culture Gram Stain - Preliminary Blood Blood Culture - Preliminary Streptococcus pneumoniae 12/21/20 14:20 Blood Culture Gram Stain - Preliminary Blood Blood Culture - Preliminary Streptococcus pneumoniae Assessment and Plan Assessment: 1 Acute hypoxic respiratory failure secondary to covid 19 pneumonitis, and secondary to Streptococcus pneumonia. 2 Type 2 diabetes. 3 History of right nephrectomy for benign tumor. 4 Former smoker. 5 Chronic atrial fibrillation, maintained on Coumadin. 6 Hypovolemic hyponatremia. Plan: The patient was seen and evaluated by Dr. Pringle This is day #3 of Remdesivir. Continue dexamethasone, vitamin supplements Anticoagulated with warfarin Antibiotics for strep pneumoniae We will continue to follow I, the cosigning physician, performed a history & physical examination of the patient. Lungs sounds bibasilar crackles. Maintaining good O2 saturations in the 90s on 3 L/m per nasal cannula. I discussed the assessment and plan of care with my nurse practitioner, Stacey Goodrich. I attest to the above note as dictated by her.
[2020-12-23 16:25] LABS: Glucose,Whole Blood 327 mg/dL (75-99)
[2020-12-23] MEDS: REMDESIVIR 100 MG in SODIUM CHLORIDE 0.9% 250 ML IVPB SCH (17:25)
[2020-12-23 20:35] LABS: Glucose,Whole Blood 314 mg/dL (75-99)
[2020-12-23] MEDS: INSULIN DETEMIR (LEVEMIR) 100 UNIT/ML SYR SQ SCH (20:41)
--- NOTE | 2020-12-24 01:38 | P.PN ---
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 Patient received his Covid vaccine first dose on December 10, 2020. According to his patient has been having generalized weakness and not feeling well since his vaccination but got worse last 2 days. Patient has been having subjective fever and chills. Cough without sputum production. Denies any chest pain. Patient has been having generalized weakness and fatigue and unable to get out of bed. No nausea vomiting or diarrhea. Denied any abdominal pain. Otherwise no recent illnesses. Chest x-ray showed cardiomegaly and chronic proximal changes with new patchy bilateral acute atelectasis and/or infiltrate. EKG showed atrial fibrillation with rapid ventricular rate. WBC 16.6, hemoglobin 15.8 and RDW 16.7 and platelets 228 D-dimer 1.36 Sodium 127 potassium 4.4 chloride 92, bicarb is 18 BUN 61 and creatinine 1.72 and blood sugar 277 Lactic acid 3.3 Magnesium 2.4 LDH is 10/12/2001 Troponin 0 0.015, CRP 388, proBNP 1360 and coronavirus PCR is not detected. INR 4.9 Patient was tachycardic and pulse ox 84% on room air on admission. 12/22/2020 Patient is more awake and alert and feeling better. Able to sit in the chair comfortably. Currently on oxygen at 4 L via nasal cannula. Chest x-ray showed no acute cardiopulmonary disease. Laboratory data showed WBC 11.5, hemoglobin 15.4 and platelets 216 Sodium 181 potassium 4.3 BUN 55 and creatinine 1.22 and blood sugar is 306 CRP 367 Patient is being continued on insulin regimen along with sliding scale. Pulmonary is on board. Patient will be continued on dexamethasone multivitamins and remdesivir course. INR is 4.0 today. Blood cultures growing Streptococcus pneumonia. Patient is being continued on antibiotics in the form of ceftriaxone and azithromycin. Current medications reviewed. Objective - Vital Signs Vital signs: Vital Signs Temp 98 F 12/22/20 12:00 Pulse 87 12/22/20 14:00 Resp 18 12/22/20 14:00 BP 143/87 12/22/20 12:00 Pulse Ox 97 12/22/20 12:00 Intake & Output 12/21/20 12/22/20 12/22/20 18:59 06:59 18:59 Intake Total 195 Output Total 1000 Balance 195 -1000 Weight 86.5 kg 76.5 kg 76.5 kg Intake: IV 75 Sodium Chloride 0.9% 1, 75 000 ml @ 75 mls/hr IV . [id number] [facility] Rx#:[id number] Oral 120 Output: Urine 1000 - Exam PHYSICAL EXAMINATION: Patient is lying in the bed comfortably, no acute distress, awake alert and or iented. Hard of hearing. HEENT: Normocephalic. Neck is supple. Pupils reactive. Nostrils clear. Oral cavity is moist. Ears reveal no drainage. Neck reveals no JVD, carotid bruits, or thyromegaly. CHEST EXAMINATION: Trachea is central. Symmetrical expansion. Lung mccall clear to auscultation and percussion. CARDIAC: Normal S1, S2 with no gallops. No murmurs ABDOMEN: Soft. Bowel sounds normal. No organomegaly. No abdominal bruits. Extremities: reveal no edema. No clubbing or cyanosis Neurologically awake, alert, oriented x3 with well-coordinated movements. No focal deficits noted Skin: No rash or skin lesions. Psychiatric: Coperative. Nonsuicidal Musculoskeletal: No joint swelling or deformity. Normal range of motion. - Labs CBC & Chem 7: 12/22/20 05:44 12/22/20 05:44 Labs: Abnormal Lab Results - Last 24 Hours (Table) 12/21/20 12/21/20 12/21/20 Range/Units 13:24 15:05 17:03 WBC (3.8-10.6) k/uL MCV (80.0-100.0) fL RDW (11.5-15.5) % Neutrophils # (1.3-7.7) k/uL Lymphocytes # (1.0-4.8) k/uL PT (9.0-12.0) sec INR (<1.2) D-Dimer (<0.60) mg/L FEU Sodium (137-145) mmol/L Carbon Dioxide (22-30) mmol/L BUN (9-20) mg/dL Glucose (74-99) mg/dL POC Glucose (mg/dL) 258 H (75-99) mg/dL Hemoglobin A1c (4.0-6.0) % Plasma Lactic Acid Humble (0.7-2.0) mmol/L Calcium (8.4-10.2) mg/dL Lactate Dehydrogenase (313-618) U/L C-Reactive Protein 388.1 H (<10.0) mg/L Procalcitonin 17.97 H (0.02-0.09) ng/mL 12/21/20 12/21/20 12/21/20 Range/Units 18:38 20:29 21:59 WBC (3.8-10.6) k/uL MCV (80.0-100.0) fL RDW (11.5-15.5) % Neutrophils # (1.3-7.7) k/uL Lymphocytes # (1.0-4.8) k/uL PT (9.0-12.0) sec INR (<1.2) D-Dimer (<0.60) mg/L FEU Sodium (137-145) mmol/L Carbon Dioxide (22-30) mmol/L BUN (9-20) mg/dL Glucose (74-99) mg/dL POC Glucose (mg/dL) 324 H (75-99) mg/dL Hemoglobin A1c (4.0-6.0) % Plasma Lactic Acid Humble 2.7 H* 2.3 H* (0.7-2.0) mmol/L Calcium (8.4-10.2) mg/dL Lactate Dehydrogenase (313-618) U/L C-Reactive Protein (<10.0) mg/L Procalcitonin (0.02-0.09) ng/mL 12/22/20 12/22/20 12/22/20 Range/Units 05:44 05:44 05:44 WBC (3.8-10.6) k/uL MCV (80.0-100.0) fL RDW (11.5-15.5) % Neutrophils # (1.3-7.7) k/uL Lymphocytes # (1.0-4.8) k/uL PT 50.2 H (9.0-12.0) sec INR 5.2 H* (<1.2) D-Dimer 1.79 H (<0.60) mg/L FEU Sodium 131 L (137-145) mmol/L Carbon Dioxide 19 L (22-30) mmol/L BUN 55 H (9-20) mg/dL Glucose 306 H (74-99) mg/dL POC Glucose (mg/dL) (75-99) mg/dL Hemoglobin A1c 7.5 H (4.0-6.0) % Plasma Lactic Acid Humble (0.7-2.0) mmol/L Calcium 7.8 L (8.4-10.2) mg/dL Lactate Dehydrogenase 1197 H (313-618) U/L C-Reactive Protein 367.9 H (<10.0) mg/L Procalcitonin (0.02-0.09) ng/mL 12/22/20 12/22/20 12/22/20 Range/Units 05:44 06:15 11:53 WBC 11.5 H (3.8-10.6) k/uL MCV 79.8 L (80.0-100.0) fL RDW 16.7 H (11.5-15.5) % Neutrophils # 10.8 H (1.3-7.7) k/uL Lymphocytes # 0.2 L (1.0-4.8) k/uL PT (9.0-12.0) sec INR (<1.2) D-Dimer (<0.60) mg/L FEU Sodium (137-145) mmol/L Carbon Dioxide (22-30) mmol/L BUN (9-20) mg/dL Glucose (74-99) mg/dL POC Glucose (mg/dL) 310 H 408 H (75-99) mg/dL Hemoglobin A1c (4.0-6.0) % Plasma Lactic Acid Humble (0.7-2.0) mmol/L Calcium (8.4-10.2) mg/dL Lactate Dehydrogenase (313-618) U/L C-Reactive Protein (<10.0) mg/L Procalcitonin (0.02-0.09) ng/mL Microbiology - Last 24 Hours (Table) 12/21/20 14:20 Blood Culture Gram Stain - Preliminary Blood Blood Culture - Preliminary Streptococcus pneumoniae 12/21/20 14:20 Blood Culture Gram Stain - Preliminary Blood 12/21/20 14:20 Blood Culture - Final Blood 12/21/20 14:20 Blood Culture - Final Blood Assessment and Plan Assessment: Acute hypoxic respiratory failure secondary to COVID-19 pneumonia Bacterial pneumonia with sputum cultures growing strep pneumoniae Elevated inflammatory markers Chronic atrial fibrillation with rapid ventricular rate Coumadin coagulopathy with INR 4.9 Lactic acidosis with level 3.3 Hypovolemic hyponatremia Acute kidney injury likely prerenal with possible ATN. CKD stage III Hyperglycemia with uncontrolled diabetes type 2 History of right nephrectomy for benign tumor Hearing disordersdeafness Previous history of smoking GI prophylaxis with PPI Plan: Patient will be continued on oxygen supplementation, IV hydration and symptomatic management. Patient was started on dexamethasone and remdesivir course. Continue with antibiotics. Monitor electrolytes and continue with insulin dosing and titrate as needed. Coumadin is on hold due to coagulopathy. Patient will be started on therapeutic Lovenox dose once INR comes down. Pulmonary is on board and further recommendations based on clinical course. Prognosis guarded at this time. Time with Patient: Greater than 30
--- NOTE | 2020-12-24 01:39 | P.PN ---
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 Patient received his Covid vaccine first dose on December 10, 2020. According to his patient has been having generalized weakness and not feeling well since his vaccination but got worse last 2 days. Patient has been having subjective fever and chills. Cough without sputum production. Denies any chest pain. Patient has been having generalized weakness and fatigue and unable to get out of bed. No nausea vomiting or diarrhea. Denied any abdominal pain. Otherwise no recent illnesses. Chest x-ray showed cardiomegaly and chronic proximal changes with new patchy bilateral acute atelectasis and/or infiltrate. EKG showed atrial fibrillation with rapid ventricular rate. WBC 16.6, hemoglobin 15.8 and RDW 16.7 and platelets 228 D-dimer 1.36 Sodium 127 potassium 4.4 chloride 92, bicarb is 18 BUN 61 and creatinine 1.72 and blood sugar 277 Lactic acid 3.3 Magnesium 2.4 LDH is 10/12/2001 Troponin 0 0.015, CRP 388, proBNP 1360 and coronavirus PCR is not detected. INR 4.9 Patient was tachycardic and pulse ox 84% on room air on admission. 12/22/2020 Patient is more awake and alert and feeling better. Able to sit in the chair comfortably. Currently on oxygen at 4 L via nasal cannula. Chest x-ray showed no acute cardiopulmonary disease. Laboratory data showed WBC 11.5, hemoglobin 15.4 and platelets 216 Sodium 181 potassium 4.3 BUN 55 and creatinine 1.22 and blood sugar is 306 CRP 367 Patient is being continued on insulin regimen along with sliding scale. Pulmonary is on board. Patient will be continued on dexamethasone multivitamins and remdesivir course. INR is 4.0 today. Blood cultures growing Streptococcus pneumonia. Patient is being continued on antibiotics in the form of ceftriaxone and azithromycin. 12/23/2020 Patient is currently sitting in the chair comfortably. Awake alert and oriented x3. Patient is hard of hearing. Currently on oxygen at 3 L via nasal cannula. Remdesivir day 3. Blood culture growing strep pneumonia. Continued on antibiotics of ceftriaxone and Zithromax. Patient is also on dexamethasone and vitamin supplementation. INR is 3.1 today. Patient has been afebrile. No nausea vomiting or abdominal pain or diarrhea. Tolerating oral diet. Current medications reviewed. Current medications reviewed. Objective - Vital Signs Vital signs: Vital Signs Temp 97.6 F 12/23/20 13:53 Pulse 74 12/23/20 13:53 Resp 18 12/23/20 13:53 BP 145/85 12/23/20 13:53 Pulse Ox 96 12/23/20 16:14 Intake & Output 12/22/20 12/23/20 12/23/20 17:59 06:59 18:59 Intake Total Output Total 750 Balance -750 Weight Intake: Oral Output: Urine 750 - Exam PHYSICAL EXAMINATION: Patient is lying in the bed comfortably, no acute distress, awake alert and oriented. Hard of hearing. HEENT: Normocephalic. Neck is supple. Pupils reactive. Nostrils clear. Oral cavity is moist. Ears reveal no drainage. Neck reveals no JVD, carotid bruits, or thyromegaly. CHEST EXAMINATION: Trachea is central. Symmetrical expansion. Lung mccall clear to auscultation and percussion. CARDIAC: Normal S1, S2 with no gallops. No murmurs ABDOMEN: Soft. Bowel sounds normal. No organomegaly. No abdominal bruits. Extremities: reveal no edema. No clubbing or cyanosis Neurologically awake, alert, oriented x3 with well-coordinated movements. No focal deficits noted Skin: No rash or skin lesions. Psychiatric: Coperative. Nonsuicidal Musculoskeletal: No joint swelling or deformity. Normal range of motion. - Labs CBC & Chem 7: 12/22/20 05:44 12/22/20 05:44 Labs: Abnormal Lab Results - Last 24 Hours (Table) 12/21/20 12/22/20 12/22/20 Range/Units 13:24 16:22 20:02 PT 38.5 H (9.0-12.0) sec INR 4.0 H (<1.2) POC Glucose (mg/dL) 224 H (75-99) mg/dL Ferritin 1651.4 H (22.0-322.0) ng/mL 12/22/20 12/23/20 12/23/20 Range/Units 20:21 05:21 06:55 PT 29.4 H (9.0-12.0) sec INR 3.1 H (<1.2) POC Glucose (mg/dL) 262 H 259 H (75-99) mg/dL Ferritin (22.0-322.0) ng/mL 12/23/20 12/23/20 Range/Units 11:36 16:23 PT (9.0-12.0) sec INR (<1.2) POC Glucose (mg/dL) 323 H 327 H (75-99) mg/dL Ferritin (22.0-322.0) ng/mL Microbiology - Last 24 Hours (Table) 12/22/20 05:44 Blood Culture - Preliminary Blood No Growth after 24 hours 12/21/20 14:20 Blood Culture Gram Stain - Preliminary Blood Blood Culture - Preliminary Streptococcus pneumoniae 12/21/20 14:20 Blood Culture Gram Stain - Preliminary Blood Blood Culture - Preliminary Streptococcus pneumoniae Assessment and Plan Assessment: Acute hypoxic respiratory failure secondary to COVID-19 pneumonia Bacterial pneumonia with blood cultures growing strep pneumoniae Elevated inflammatory markers Chronic atrial fibrillation with rapid ventricular rate Coumadin coagulopathy with INR 4.9 Lactic acidosis with level 3.3 Hypovolemic hyponatremia Acute kidney injury likely prerenal with possible ATN. CKD stage III Hyperglycemia with uncontrolled diabetes type 2 History of right nephrectomy for benign tumor Hearing disordersdeafness Previous history of smoking GI prophylaxis with PPI Plan: Patient will be continued on oxygen supplementation, IV hydration and sympto matic management. Patient was started on dexamethasone and remdesivir course. Continue with antibiotics. Monitor electrolytes and continue with insulin dosing and titrate as needed. Coumadin is on hold due to coagulopathy. Patient will be started on therapeutic Lovenox dose once INR comes down. Pulmonary is on board and further recommendations based on clinical course. Prognosis guarded at this time. Time with Patient: Greater than 30
[2020-12-24 06:56] LABS: Glucose,Whole Blood 275 mg/dL (75-99)
[2020-12-24] MEDS: INSULIN ASPART (NovoLOG) 100 UNIT/ML VIAL SQ SCH ×7 (07:45→20:21)
[2020-12-24] MEDS: ZINC SULFATE 220 MG CAP PO SCH (07:46)
[2020-12-24] MEDS: PANTOPRAZOLE 40 MG TABLET PO SCH (07:46)
[2020-12-24] MEDS: ASCORBIC ACID 500 MG TAB PO SCH ×2 (07:46→20:21)
[2020-12-24] MEDS: dexAMETHasone 2 MG TAB PO SCH (07:46)
[2020-12-24] MEDS: METOPROLOL TARTRATE 25 MG TAB PO SCH ×2 (07:46→20:21)
[2020-12-24] MEDS: CHOLECALCIFEROL 25 MCG (1000 IU) TABLET PO SCH (07:46)
[2020-12-24 09:33] LABS: INR 1.68 (0.90-1.11); Prothrombin Time 17.7 sec (9.9-11.9)
[2020-12-24] MEDS: SODIUM CHLORIDE 0.9% 1,000 ML IV SCH ×2 (10:17→20:23)
[2020-12-24 10:55] LABS: Albumin 3.4 g/dL (3.80-4.90); Albumin/Globulin Ratio 1.7 (1.60-3.17); Anion Gap 12.9 mmol/L (4.00-12.00); Calcium 8.4 mg/dL (8.7-10.3); Carbon Dioxide 22.1 mmol/L (21.6-31.8); Non-African American GFR(CKD) 73.3 (60.0-200.0); Potassium 4.6 mmol/L (3.5-5.5); Total Bilirubin 0.9 mg/dL (0.3-1.2); Total Protein 5.4 g/dL (6.2-8.2)
[2020-12-24 11:10] LABS: HCT 45.4 % (39.6-50.0); HGB 14.5 g/dL (13.0-17.0); MCH 26.2 pg (27.0-32.0); MCHC 31.9 g/dL (32.0-37.0); MCV 81.9 fL (80.0-97.0); Mean Platelet Volume 10.3 fL (9.5-12.2); Platelet Count 283 X 10*3/uL (140-440); RBC 5.54 X 10*6/uL (4.40-5.60); WBC 11.15 X 10*3/uL (4.50-10.00)
[2020-12-24 11:11] LABS: Basophils # (M) 0 X 10*3/uL (0.00-0.10); Eosinophils # (M) 0 X 10*3/uL (0.04-0.35); Lymphocytes # (M) 0.45 X 10*3/uL (0.90-5.00); Metamyelocytes % 2 % (0-0); Neutrophils # (M) 9.48 X 10*3/uL (2.00-8.90); Neutrophils % (M) 85 %
[2020-12-24 11:27] LABS: Glucose,Whole Blood 215 mg/dL (75-99)
--- NOTE | 2020-12-24 12:02 | P.PN ---
Subjective Patient is a 75-year-old male with a known history of diabetes type 2, hearing disorder/deafness, right nephrectomy for benign tumor, history of DVTs currently on anticoagulation with Coumadin due to atrial fibrillation and prior history of smoking presented to the ER due to complaints of generalized weakness and shortness of breath and exertional dyspnea for the past 7 to 8 days. Patient received his Covid vaccine first dose on December 10, 2020. According to his patient has been having generalized weakness and not feeling well since his vaccination but got worse last 2 days. Patient has been having subjective fever and chills. Cough without sputum production. Denies any chest pain. Patient has been having generalized weakness and fatigue and unable to get out of bed. No nausea vomiting or diarrhea. Denied any abdominal pain. Otherwise no recent illnesses. Chest x-ray showed cardiomegaly and chronic proximal changes with n ew patchy bilateral acute atelectasis and/or infiltrate. EKG showed atrial fibrillation with rapid ventricular rate. WBC 16.6, hemoglobin 15.8 and RDW 16.7 and platelets 228 D-dimer 1.36 Sodium 127 potassium 4.4 chloride 92, bicarb is 18 BUN 61 and creatinine 1.72 and blood sugar 277 Lactic acid 3.3 Magnesium 2.4 LDH is 10/12/2001 Troponin 0 0.015, CRP 388, proBNP 1360 and coronavirus PCR is not detected. INR 4.9 Patient was tachycardic and pulse ox 84% on room air on admission. 12/24/2020 Patient is a pleasant 75 years old male with multiple medical problems as above was admitted with copious pneumonia and Streptococcus pneumoniae bacteremia. He is also hard of hearing, he denies dyspnea or any specific complaints today. hemodynamically he is a stable. Sugar is better controlled today he's on Levemir 30 units at bedtime and 10 units of NovoLog with meals he is currently on Zithromax, ceftriaxone, dexamethasone and remdesivir ( last dose on 12/25) also he is on Coumadin for his history of paroxysmal on chronic A. fib. His INR today is subtherapeutic at 1.68, restart Coumadin Also we'll check PT/OT evaluation review of systems CONSTITUTIONAL: No fever, no malaise, no fatigue. HEENT: No recent visual problems or hearing problems. Denied any sore throat. CARDIOVASCULAR: No orthopnea, PND, no palpitations, no syncope. PULMONARY: No shortness of breath, no cough, no hemoptysis. GASTROINTESTINAL: No diarrhea, no nausea, no vomiting, no abdominal pain. Normoactive bowel sounds. Active Medications Generic Name Dose Route Start Last Admin Trade Name Freq PRN Reason Stop Dose Admin Ascorbic Acid 500 mg 12/21/20 21:00 12/24/20 07:46 Ascorbic Acid 500 Mg Tab PO 500 mg BID ELEUTERIO Administration Azithromycin 500 mg 12/24/20 14:00 Azithromycin 500 Mg Tab PO Q24H ELEUTERIO Cholecalciferol 125 mcg 12/21/20 16:45 12/24/20 07:46 Cholecalciferol 25 Mcg (1000 Iu) Tablet PO 125 mcg DAILY ELEUTERIO Administration Dexamethasone 6 mg 12/22/20 09:00 12/24/20 07:46 Dexamethasone 2 Mg Tab PO 6 mg DAILY ELEUTERIO Administration Sodium Chloride 1,000 mls @ 75 mls/hr 12/21/20 15:00 12/24/20 10:17 Saline 0.9% IV Not Given .[id number] ELEUTERIO Remdesivir 100 mg/ Sodium 250 mls @ 250 mls/hr 12/22/20 18:00 12/23/20 17:25 Chloride IVPB 12/25/20 18:59 250 mls/hr DAILY@1800 ELEUTERIO Administration Ceftriaxone Sodium 1 gm/ 50 mls @ 100 mls/hr 12/22/20 14:00 12/23/20 13:00 Sodium Chloride IVPB 100 mls/hr Q24H ELEUTERIO Administration Insulin Aspart 0 unit 12/21/20 21:00 12/24/20 07:45 Insulin Aspart (Novolog) 100 Unit/Ml Vial SQ 4 unit ACHS ELEUTERIO Administration Protocol Insulin Aspart 10 unit 12/24/20 07:30 12/24/20 07:45 Insulin Aspart (Novolog) 100 Unit/Ml Vial SQ 10 unit AC-TID ELEUTERIO Administration Insulin Detemir 30 unit 12/21/20 23:00 12/23/20 20:41 Insulin Detemir (Levemir) 100 Unit/Ml Syr SQ 30 unit HS ELEUTERIO Administration Metoprolol Tartrate 25 mg 12/22/20 09:00 12/24/20 07:46 Metoprolol Tartrate 25 Mg Tab PO 25 mg BID ELEUTERIO Administration Miscellaneous Information 1 each 12/24/20 11:57 Warfarin Per Pharmacy MISCELLANE DIRECTED PRN Per Protocol Protocol Naloxone HCl 0.2 mg 12/21/20 14:37 Naloxone 0.4 Mg/Ml 1 Ml Vial IV Q2M PRN Opioid Reversal Pantoprazole Sodium 40 mg 12/22/20 07:30 12/24/20 07:46 Pantoprazole 40 Mg Tablet PO 40 mg [id number] ELEUTERIO Administration Zinc Sulfate 220 mg 12/21/20 16:45 12/24/20 07:46 Zinc Sulfate 220 Mg Cap PO 220 mg DAILY ELEUTERIO Administration Objective - Vital Signs Vital signs: Vital Signs Temp 97.7 F 12/24/20 10:16 Pulse 77 12/24/20 10:16 Resp 21 12/24/20 10:16 BP 161/94 12/24/20 10:16 Pulse Ox 97 12/24/20 10:16 Intake & Output 12/23/20 12/24/20 12/24/20 18:59 06:59 18:59 Intake Total 1000 Output Total 750 Balance -750 1000 Intake: IV 1000 Sodium Chloride 0.9% 1, 1000 000 ml @ 75 mls/hr IV . [id number] [facility] Rx#:[id number] Output: Urine 750 - Exam GENERAL: The patient is alert and oriented x3, not in any acute distress. Well developed, well nourished. HEENT: Pupils are round and equally reacting to light. EOMI. No scleral icterus. No conjunctival pallor. Normocephalic, atraumatic. No pharyngeal erythema. No thyromegaly. CARDIOVASCULAR: S1 and S2 present. No murmurs, rubs, or gallops. PULMONARY: Chest is clear to auscultation, no wheezing or crackles. ABDOMEN: Soft, nontender, nondistended, normoactive bowel sounds. No palpable organomegaly. MUSCULOSKELETAL: No joint swelling or deformity. EXTREMITIES: No cyanosis, clubbing, or pedal edema. NEUROLOGICAL: Gross neurological examination did not reveal any focal deficits. SKIN: No rashes. no petechiae. - Labs CBC & Chem 7: 12/24/20 05:36 12/24/20 05:36 Labs: Abnormal Lab Results - Last 24 Hours (Table) 12/23/20 12/23/20 12/24/20 Range/Units 16:23 20:32 05:36 WBC (4.50-10.00) X 10*3/uL MCH (27.0-32.0) pg MCHC (32.0-37.0) g/dL RDW (11.5-14.5) % Absolute Nucleated RBC (0.00-0.00) X 10*3/uL Metamyelocytes % (0-0) % Neutrophils # (Manual) (2.00-8.90) X 10*3/uL Lymphocytes # (Manual) (0.90-5.00) X 10*3/uL Eosinophils # (Manual) (0.04-0.35) X 10*3/uL NRBC/100 WBC Diff (0.0-0.0) /100 WBCS PT 17.7 H (9.9-11.9) sec INR 1.68 H (0.90-1.11) Anion Gap (4.00-12.00) mmol/L BUN (9.0-27.0) mg/dL BUN/Creatinine Ratio (12.00-20.00) Ratio Glucose (70-110) mg/dL POC Glucose (mg/dL) 327 H 314 H (75-99) mg/dL Calcium (8.7-10.3) mg/dL AST (14-35) U/L ALT (10-49) U/L Total Protein (6.2-8.2) g/dL Albumin (3.80-4.90) g/dL 12/24/20 12/24/20 12/24/20 Range/Units 05:36 05:36 06:54 WBC 11.15 H (4.50-10.00) X 10*3/uL MCH 26.2 L (27.0-32.0) pg MCHC 31.9 L (32.0-37.0) g/dL RDW 18.0 H (11.5-14.5) % Absolute Nucleated RBC 0.02 H (0.00-0.00) X 10*3/uL Metamyelocytes % 2 H (0-0) % Neutrophils # (Manual) 9.48 H (2.00-8.90) X 10*3/uL Lymphocytes # (Manual) 0.45 L (0.90-5.00) X 10*3/uL Eosinophils # (Manual) 0 L (0.04-0.35) X 10*3/uL NRBC/100 WBC Diff 0.2 H (0.0-0.0) /100 WBCS PT (9.9-11.9) sec INR (0.90-1.11) Anion Gap 12.90 H (4.00-12.00) mmol/L BUN 42.0 H (9.0-27.0) mg/dL BUN/Creatinine Ratio 42.00 H (12.00-20.00) Ratio Glucose 167 H (70-110) mg/dL POC Glucose (mg/dL) 275 H (75-99) mg/dL Calcium 8.4 L (8.7-10.3) mg/dL AST 63 H (14-35) U/L ALT 60 H (10-49) U/L Total Protein 5.4 L (6.2-8.2) g/dL Albumin 3.40 L (3.80-4.90) g/dL 12/24/20 Range/Units 11:25 WBC (4.50-10.00) X 10*3/uL MCH (27.0-32.0) pg MCHC (32.0-37.0) g/dL RDW (11.5-14.5) % Absolute Nucleated RBC (0.00-0.00) X 10*3/uL Metamyelocytes % (0-0) % Neutrophils # (Manual) (2.00-8.90) X 10*3/uL Lymphocytes # (Manual) (0.90-5.00) X 10*3/uL Eosinophils # (Manual) (0.04-0.35) X 10*3/uL NRBC/100 WBC Diff (0.0-0.0) /100 WBCS PT (9.9-11.9) sec INR (0.90-1.11) Anion Gap (4.00-12.00) mmol/L BUN (9.0-27.0) mg/dL BUN/Creatinine Ratio (12.00-20.00) Ratio Glucose (70-110) mg/dL POC Glucose (mg/dL) 215 H (75-99) mg/dL Calcium (8.7-10.3) mg/dL AST (14-35) U/L ALT (10-49) U/L Total Protein (6.2-8.2) g/dL Albumin (3.80-4.90) g/dL Microbiology - Last 24 Hours (Table) 12/22/20 05:44 Blood Culture - Preliminary Blood No Growth after 48 hours 12/21/20 14:20 Blood Culture Gram Stain - Final Blood Blood Culture - Final Streptococcus pneumoniae 12/21/20 14:20 Blood Culture Gram Stain - Final Blood Blood Culture - Final Streptococcus pneumoniae Assessment and Plan Assessment: b/l COVID-19 pneumonia Bacterial pneumonia with blood cultures growing strep pneumoniae Elevated inflammatory markers Chronic atrial fibrillation with rapid ventricular rate Coumadin coagulopathy with INR 4.9 Lactic acidosis with level 3.3, back to normal Hypovolemic hyponatremia, improved Acute kidney injury likely prerenal with possible ATN. back to normal Hyperglycemia with uncontrolled diabetes type 2 History of right nephrectomy for benign tumor Hearing disordersdeafness Previous history of smoking Plan: this is a pleasant 75 years old male who presents with cough pneumonia and Streptococcus bacteremia.patient remains on Zithromax and Ancef Jamil, pending repeat blood culture showing no growth after 48 hours, final results are still p ending Also patient on dexamethasone and remdesivir left him on the case. Also he is on zinc and vitamin C. Labs and medication were reviewed.. Continue same treatment. Continue with symptomatic treatment. Resume home medication. Monitor lytes and vitals. DVT and GI prophylaxis. Further recommendations depends on the clinical course of the patient DVT prophylaxis: warfarin GI Prophylaxis: Ppi PT/OT: Pending
[2020-12-24] MEDS ORDERED: AZITHROMYCIN 500 MG TAB PO SCH (14:00)
--- NOTE | 2020-12-24 15:26 | P.PN ---
Subjective Progress Note Date: 12/24/20 Principal diagnosis: COVID 19 75-year-old white male patient, who is very hard of hearing, presents to the emergency department on 12/21/2020 for evaluation of generalized weakness, cough and dyspnea. 8 days ago patient received his first dose of COVID 19 vaccine and for 2 days afterwards he felt fine however 6 days ago he started feeling unwell, developed fever and chills, and a cough which has improved, now he reports generalized weakness and fatigue. Denies any chest pain, denies any abdominal pain, no nausea or vomiting or diarrhea. Emergency department patient was found to be hypoxic with a pulse ox of 84% on room air, requiring supplemental oxygen. His chest x-ray cardiomegaly with new patchy bibasilar infiltrates.COVID 19 PCR was positive. The rest of his admission lab work showed white blood cell count of 16.6, hemoglobin of 15.8, INR is 4.9, d-dimer is 1.3, sodium is 127, chloride is 92, CO2 is 18, B1 of 61, creatinine is 1.72, plasma lactic acid is 3.3, AST was 88, ALT and alk phos were within normal limits, his inflammatory markers are significantly elevated with LDH of 1102, and CRP of 388.1. Patient is currently requiring 4 L of oxygen his pulse ox is 91-95%, he is in atrial fibrillation on the EKG, at times he is tachycardic, patient is on Coumadin for chronic anticoagulation. Does not appear to be in acute respiratory distress, does have occasional cough, no significant phlegm production, other medical history includes history of diabetes mellitus type 2, chronic kidney disease with history of right nephrectomy for benign tumor, history of nicotine dependence, and previous history of GI bleeding in April 2020. Patient was given a dose of azithromycin and Rocephin in the emergency department, pro-calcitonin level has been sent, patient was also started on oral Decadron, and we were asked to see the patient in consultation for evaluation of acute hypoxic respiratory failure. Patient was reevaluated today on 12/22/2020, patient is doing surprisingly well. Denies being short of breath, patient is extremely hard of hearing. Denies cough wheezing denies any fever or chills. Denies any GI symptoms. He is on 4 L nasal cannula, and his O2 saturation is 97%. Follow-up chest x-ray is basically unremarkable, his initial chest x-ray however showed patchy bibasilar infiltrates. Blood cultures are positive for Streptococcus pneumoniae and the patient is covered with Rocephin. Murillo virus PCR was detected on admission. Hence I believe were dealing with mostly likely a combined pneumonia secondary to Murillo virus and secondary to Streptococcus pneumonia. WBC count is improving down to 11.5 today. Hemoglobin is 15.4. INR is 5.4. D-dimer is 1.79. LDH is 1197 and C-reactive protein is 367 both are basically relatively unchanged from admission. The patient is seen today 12/23/2020 in follow-up on the regular medical floor. He is doing very well. Sitting up in a chair at the bedside. Denies any worsening shortness of breath, cough or congestion. He is maintaining O2 saturation 98% on 3 L/m. This is day #3 of Remdesivir. INR 3.1. Blood cultures are positive for Streptococcus pneumoniae. Follow-up blood culture revealing no growth to date. He remains on ceftriaxone and azithromycin. He had dexamethasone, vitamin supplements. On 12/24/2020 patient seen in follow-up on medical floor, he is on room air, pulse ox is 97%, he is breathing comfortably, no acute events overnight, he denies any chest pain, he denies any cough or congestion, doing well, his INR is subtherapeutic today, at 1.68. Patient will receive 2 mg of Coumadin tonight, he remains on Remdesivir, today is day 4 of treatment, remains on Decadron, she remains on azithromycin for Streptococcus pneumonia bacteremia, his most recent blood culture on 12/22/2020 so far show no growth at the 48 hour cong. Objective - Vital Signs Vital signs: Vital Signs Temp 97.7 F 12/24/20 13:30 Pulse 85 12/24/20 13:30 Resp 19 12/24/20 13:30 BP 152/81 12/24/20 13:30 Pulse Ox 96 12/24/20 13:30 Intake & Output 12/23/20 12/24/20 12/24/20 18:59 06:59 18:59 Intake Total 1000 Output Total 750 Balance -750 1000 Intake: IV 1000 Sodium Chloride 0.9% 1, 1000 000 ml @ 75 mls/hr IV . [id number] [facility] Rx#:[id number] Output: Urine 750 - Exam GENERAL EXAM: Alert, pleasant, 75-year-old white male with a pulse ox of 96% comfortable in no apparent distress. HEAD: Normocephalic/atraumatic. EYES: Normal reaction of pupils, equal size. Conjunctiva pink, sclera white. NOSE: Clear with pink turbinates. THROAT: No erythema or exudates. NECK: No masses, no JVD, no thyroid enlargement, no adenopathy. CHEST: No chest wall deformity. Symmetrical expansion. LUNGS: Equal air entry with no crackles, wheeze, rhonchi or dullness. CVS: Regular rate and rhythm, normal S1 and S2, no gallops, no murmurs, no rubs ABDOMEN: Soft, nontender. No hepatosplenomegaly, normal bowel sounds, no guarding or rigidity. EXTREMITIES: No clubbing, no edema, no cyanosis, 2+ pulses and upper and lower extremities. MUSCULOSKELETAL: Muscle strength and tone normal. SPINE: No scoliosis or deformity SKIN: No rashes CENTRAL NERVOUS SYSTEM: Alert and oriented -3. No focal deficits, tone is normal in all 4 extremities. PSYCHIATRIC: Alert and oriented -3. Appropriate affect. Intact judgment and insight. - Labs CBC & Chem 7: 12/24/20 05:36 12/24/20 05:36 Labs: Abnormal Lab Results - Last 24 Hours (Table) 12/23/20 12/23/20 12/24/20 Range/Units 16:23 20:32 05:36 WBC (4.50-10.00) X 10*3/uL MCH (27.0-32.0) pg MCHC (32.0-37.0) g/dL RDW (11.5-14.5) % Absolute Nucleated RBC (0.00-0.00) X 10*3/uL Metamyelocytes % (0-0) % Neutrophils # (Manual) (2.00-8.90) X 10*3/uL Lymphocytes # (Manual) (0.90-5.00) X 10*3/uL Eosinophils # (Manual) (0.04-0.35) X 10*3/uL NRBC/100 WBC Diff (0.0-0.0) /100 WBCS PT 17.7 H (9.9-11.9) sec INR 1.68 H (0.90-1.11) Anion Gap (4.00-12.00) mmol/L BUN (9.0-27.0) mg/dL BUN/Creatinine Ratio (12.00-20.00) Ratio Glucose (70-110) mg/dL POC Glucose (mg/dL) 327 H 314 H (75-99) mg/dL Calcium (8.7-10.3) mg/dL AST (14-35) U/L ALT (10-49) U/L Total Protein (6.2-8.2) g/dL Albumin (3.80-4.90) g/dL 12/24/20 12/24/20 12/24/20 Range/Units 05:36 05:36 06:54 WBC 11.15 H (4.50-10.00) X 10*3/uL MCH 26.2 L (27.0-32.0) pg MCHC 31.9 L (32.0-37.0) g/dL RDW 18.0 H (11.5-14.5) % Absolute Nucleated RBC 0.02 H (0.00-0.00) X 10*3/uL Metamyelocytes % 2 H (0-0) % Neutrophils # (Manual) 9.48 H (2.00-8.90) X 10*3/uL Lymphocytes # (Manual) 0.45 L (0.90-5.00) X 10*3/uL Eosinophils # (Manual) 0 L (0.04-0.35) X 10*3/uL NRBC/100 WBC Diff 0.2 H (0.0-0.0) /100 WBCS PT (9.9-11.9) sec INR (0.90-1.11) Anion Gap 12.90 H (4.00-12.00) mmol/L BUN 42.0 H (9.0-27.0) mg/dL BUN/Creatinine Ratio 42.00 H (12.00-20.00) Ratio Glucose 167 H (70-110) mg/dL POC Glucose (mg/dL) 275 H (75-99) mg/dL Calcium 8.4 L (8.7-10.3) mg/dL AST 63 H (14-35) U/L ALT 60 H (10-49) U/L Total Protein 5.4 L (6.2-8.2) g/dL Albumin 3.40 L (3.80-4.90) g/dL 12/24/20 Range/Units 11:25 WBC (4.50-10.00) X 10*3/uL MCH (27.0-32.0) pg MCHC (32.0-37.0) g/dL RDW (11.5-14.5) % Absolute Nucleated RBC (0.00-0.00) X 10*3/uL Metamyelocytes % (0-0) % Neutrophils # (Manual) (2.00-8.90) X 10*3/uL Lymphocytes # (Manual) (0.90-5.00) X 10*3/uL Eosinophils # (Manual) (0.04-0.35) X 10*3/uL NRBC/100 WBC Diff (0.0-0.0) /100 WBCS PT (9.9-11.9) sec INR (0.90-1.11) Anion Gap (4.00-12.00) mmol/L BUN (9.0-27.0) mg/dL BUN/Creatinine Ratio (12.00-20.00) Ratio Glucose (70-110) mg/dL POC Glucose (mg/dL) 215 H (75-99) mg/dL Calcium (8.7-10.3) mg/dL AST (14-35) U/L ALT (10-49) U/L Total Protein (6.2-8.2) g/dL Albumin (3.80-4.90) g/dL Microbiology - Last 24 Hours (Table) 12/22/20 05:44 Blood Culture - Preliminary Blood No Growth after 48 hours 12/21/20 14:20 Blood Culture Gram Stain - Final Blood Blood Culture - Final Streptococcus pneumoniae 12/21/20 14:20 Blood Culture Gram Stain - Final Blood Blood Culture - Final Streptococcus pneumoniae Assessment and Plan Plan: Assessment: #1. Acute hypoxic respiratory failure related to acute COVID 19 pneumonia, onset of symptoms was 6 days ago prior to presentation. Patient received first dose of COVID 19 vaccine on 12/13/2020. Patient did have exposure to his girl friend who is COVID 19 positive #2. Streptococcus pneumonia bacteremia currently on azithromycin and Rocephin #3. Diabetes mellitus type 2 #4. History of right nephrectomy for benign tumor #5. Hard of hearing #6. Former smoker #7. Chronic A. fib on Coumadin #8. Hyponatremia, likely hypovolemic Plan: Continue Remdesivir, continue Decadron, follow-up blood cultures remain negative thus far, patient remains on antibiotics, no worsening dyspnea or hypoxia, no fever, if continues to be stable and once the INR becomes therapeutic patient will be considered for discharge home. From pulmonary perspective he stable for discharge home in the next 24-48 hours I performed a history & physical examination of the patient and discussed their management with my nurse practitioner, Ene Antunez. I reviewed the nurse practitioner's note and agree with the documented findings and plan of care. Lung sounds are positive for diminished breath sounds. The findings and the impression was discussed with the patient. I attest to the documentation by the nurse practitioner. Time with Patient: Less than 30
[2020-12-24 16:26] LABS: Glucose,Whole Blood 213 mg/dL (75-99)
[2020-12-24 16:38] LABS: Glucose,Whole Blood 256 mg/dL (75-99)
[2020-12-24] MEDS: REMDESIVIR 100 MG in SODIUM CHLORIDE 0.9% 250 ML IVPB SCH (17:21)
[2020-12-24] MEDS ORDERED: WARFARIN 2 MG TAB PO ONE (18:00)
[2020-12-24 20:17] LABS: Glucose,Whole Blood 273 mg/dL (75-99)
[2020-12-24] MEDS: INSULIN DETEMIR (LEVEMIR) 100 UNIT/ML SYR SQ SCH (20:21)
--- NOTE | 2020-12-25 06:34 | CONS ---
CONSULTATION DATE OF SERVICE: 12/24/2020 REASON FOR CONSULTATION: Streptococcus pneumoniae bacteremia. HISTORY OF PRESENT ILLNESS: The patient is a 75-year-old man who presented to the hospital 3 days ago for evaluation of generalized weakness, cough and increasing shortness of breath. The patient's symptoms have been going on for about 7 days before the presentation to the hospital. The patient did have subjective fever and chills. He also had a cough which has been moderate in intensity with occasional sputum production and did have shortness of breath. This was associated with no significant chest pain. No nausea, no vomiting. No abdominal pain and no diarrhea. On presentation to the hospital, the patient was afebrile and no fever has been recorded during this hospital stay. The patient was 84% on room air, however, is currently saturating 97% on room air. The patient did have an elevated white count 15.6 on admission, which is down to 11.15. D- dimer was mildly elevated. Creatinine was normal. Liver enzymes mildly elevated. Procalcitonin were 17.97. Murillo PCR was positive. The patient did have blood cultures positive for strep pneumo. The patient did have a chest x-ray on admission, cardiomegaly with chronic parenchymal changes. New bibasilar acute infiltrate. Infectious Disease was consulted because of his bacteremia. The patient overall is feeling better. REVIEW OF SYSTEMS: Positive points have been mentioned in HPI. Rest of systems are negative. PAST MEDICAL HISTORY: Diabetes mellitus, renal insufficiency, and right kidney tumor. PAST SURGERY HISTORY: Right nephrectomy for benign tumor, appendectomy, colonoscopy. SOCIAL HISTORY: Former smoker. No drinking or drug use. FAMILY HISTORY: Father with history of heart disease. ALLERGIES: BACTRIM. MEDICATIONS: Include the patient is currently on vitamin C, Zithromax, Rocephin 1 g daily, vitamin D3, dexamethasone, NovoLog, Levemir, Lopressor, Narcan, Protonix, remdesivir and zinc. PHYSICAL EXAMINATION: VITAL SIGNS: Blood pressure 185/90 with a pulse of 81, temperature 97.6, he is 97% on room air. GENERAL DESCRIPTION: Patient is an elderly male up in the chair in no distress. No tachypnea or accessory muscles of respiration use. HEENT: Examination shows slightly pallor, no scleral icterus. Oral mucous membrane is dry. No pharyngeal erythema or thrush. NECK: Trachea central, no thyromegaly. LUNGS: Unlabored breathing, decreased breath sounds at the bases. No wheeze. HEART: S1-S2, regular rate and rhythm. ABDOMEN: Soft, no tenderness. No guarding or rigidity. EXTREMITIES: No edema of the feet. SKIN: No rash or mass palpable. NEUROLOGICAL: Patient is awake, alert, oriented times two. Mood and affect normal. LABS: Hemoglobin is 14.4, white count 9.15, admission white count 16.6 with a BUN of 42, creatinine 1.0. His procalcitonin was 17. Murillo PCR positive. DIAGNOSTIC IMPRESSION: Patient with strep pneumo bacteremia, source is likely pneumonia. Clinically doubt COVID-19 infection and this patient did have a significant elevated white count on admission and did have elevated procalcitonin. This patient has shown clinical response to the Rocephin the patient has been on to Rocephin. PLAN: 1. Rocephin dose adjusted up to 2 grams daily and discontinue Zithromax. 2. If the patient continues to improve, plan to finish therapy with oral Augmentin 875 b.i.d. for 10 days and close outpatient followup. Thank you for this consultation. Will follow this patient along with you. MMODL / IJN: [id number] /
[2020-12-25 07:13] LABS: Glucose,Whole Blood 125 mg/dL (75-99)
[2020-12-25 07:52] LABS: INR 1.7 (<1.2); Prothrombin Time 17.2 sec (9.0-12.0)
[2020-12-25] MEDS: INSULIN ASPART (NovoLOG) 100 UNIT/ML VIAL SQ SCH ×6 (08:00→15:57)
[2020-12-25] MEDS: ZINC SULFATE 220 MG CAP PO SCH (08:04)
[2020-12-25] MEDS: METOPROLOL TARTRATE 25 MG TAB PO SCH (08:04)
[2020-12-25] MEDS: PANTOPRAZOLE 40 MG TABLET PO SCH (08:04)
[2020-12-25] MEDS: ASCORBIC ACID 500 MG TAB PO SCH (08:04)
[2020-12-25] MEDS: CHOLECALCIFEROL 25 MCG (1000 IU) TABLET PO SCH (08:04)
[2020-12-25] MEDS ORDERED: dexAMETHasone 2 MG TAB PO SCH (09:00)
[2020-12-25 11:05] VITALS: PULSE 93
[2020-12-25 11:19] LABS: Glucose,Whole Blood 139 mg/dL (75-99)
[2020-12-25] MEDS ORDERED: amLODIPine 2.5 MG TAB PO SCH (11:45)
[2020-12-25 11:51] LABS: HCT 47.5 % (39.6-50.0); HGB 15.2 g/dL (13.0-17.0); MCH 26.1 pg (27.0-32.0); MCV 81.6 fL (80.0-97.0); Mean Platelet Volume 9.8 fL (9.5-12.2); Platelet Count 305 X 10*3/uL (140-440); RBC 5.82 X 10*6/uL (4.40-5.60); RDW 18.5 % (11.5-14.5); WBC 11.55 X 10*3/uL (4.50-10.00)
[2020-12-25 11:52] LABS: Acanthocytes 2+; Basophils # (M) 0 X 10*3/uL (0.00-0.10); Eosinophils # (M) 0.12 X 10*3/uL (0.04-0.35); Lymphocytes # (M) 0.81 X 10*3/uL (0.90-5.00); Metamyelocytes % 2 % (0-0); Microcytosis (M) 2+; Monocytes # (M) 1.27 X 10*3/uL (0.20-1.00); Myelocytes % 4 % (0-0); Neutrophils # (M) 8.66 X 10*3/uL (2.00-8.90); Neutrophils % (M) 75 %
--- NOTE | 2020-12-25 14:19 | P.PN ---
Subjective Progress Note Date: 12/25/20 Principal diagnosis: COVID 19 75-year-old white male patient, who is very hard of hearing, presents to the emergency department on 12/21/2020 for evaluation of generalized weakness, cough and dyspnea. 8 days ago patient received his first dose of COVID 19 vaccine and for 2 days afterwards he felt fine however 6 days ago he started feeling unwell, developed fever and chills, and a cough which has improved, now he reports generalized weakness and fatigue. Denies any chest pain, denies any abdominal pain, no nausea or vomiting or diarrhea. Emergency department patient was found to be hypoxic with a pulse ox of 84% on room air, requiring supplemental oxygen. His chest x-ray cardiomegaly with new patchy bibasilar infiltrates.COVID 19 PCR was positive. The rest of his admission lab work showed white blood cell count of 16.6, hemoglobin of 15.8, INR is 4.9, d-dimer is 1.3, sodium is 127, chloride is 92, CO2 is 18, B1 of 61, creatinine is 1.72, plasma lactic acid is 3.3, AST was 88, ALT and alk phos were within normal limits, his inflammatory markers are significantly elevated with LDH of 1102, and CRP of 388.1. Patient is currently requiring 4 L of oxygen his pulse ox is 91-95%, he is in atrial fibrillation on the EKG, at times he is tachycardic, patient is on Coumadin for chronic anticoagulation. Does not appear to be in acute respiratory distress, does have occasional cough, no significant phlegm production, other medical history includes history of diabetes mellitus type 2, chronic kidney disease with history of right nephrectomy for benign tumor, history of nicotine dependence, and previous history of GI bleeding in April 2020. Patient was given a dose of azithromycin and Rocephin in the emergency department, pro-calcitonin level has been sent, patient was also started on oral Decadron, and we were asked to see the patient in consultation for evaluation of acute hypoxic respiratory failure. Patient was reevaluated today on 12/22/2020, patient is doing surprisingly well. Denies being short of breath, patient is extremely hard of hearing. Denies cough wheezing denies any fever or chills. Denies any GI symptoms. He is on 4 L nasal cannula, and his O2 saturation is 97%. Follow-up chest x-ray is basically unremarkable, his initial chest x-ray however showed patchy bibasilar infiltrates. Blood cultures are positive for Streptococcus pneumoniae and the patient is covered with Rocephin. Murillo virus PCR was detected on admission. Hence I believe were dealing with mostly likely a combined pneumonia secondary to Murillo virus and secondary to Streptococcus pneumonia. WBC count is improving down to 11.5 today. Hemoglobin is 15.4. INR is 5.4. D-dimer is 1.79. LDH is 1197 and C-reactive protein is 367 both are basically relatively unchanged from admission. The patient is seen today 12/23/2020 in follow-up on the regular medical floor. He is doing very well. Sitting up in a chair at the bedside. Denies any worsening shortness of breath, cough or congestion. He is maintaining O2 saturation 98% on 3 L/m. This is day #3 of Remdesivir. INR 3.1. Blood cultures are positive for Streptococcus pneumoniae. Follow-up blood culture revealing no growth to date. He remains on ceftriaxone and azithromycin. He had dexamethasone, vitamin supplements. On 12/24/2020 patient seen in follow-up on medical floor, he is on room air, pulse ox is 97%, he is breathing comfortably, no acute events overnight, he denies any chest pain, he denies any cough or congestion, doing well, his INR is subtherapeutic today, at 1.68. Patient will receive 2 mg of Coumadin tonight, he remains on Remdesivir, today is day 4 of treatment, remains on Decadron, she remains on azithromycin for Streptococcus pneumonia bacteremia, his most recent blood culture on 12/22/2020 so far show no growth at the 48 hour cong. On 12/25/2020 patient seen in follow-up on medical floor, he is awake and alert, patient is a very difficult to communicate with, patient is extremely hard of hearing. She is on room air, pulse ox is 96%, his been afebrile, blood pressure has been stable, his had no fever or chills since admission, no worsening dyspnea and no chest discomfort. His follow-up blood cultures is 12/22/2020 has shown no growth. No altered mentation, patient has been restarted on his Coumadin, today he received 3 mg for INR of 1.7. No cough, no altered mentation, no worsening dyspnea hypoxia, patient is really eager to go home today. Objective - Vital Signs Vital signs: Vital Signs Temp 98.9 F 12/25/20 10:00 Pulse 93 12/25/20 10:00 Resp 16 12/25/20 10:00 BP 131/84 12/25/20 10:00 Pulse Ox 96 12/25/20 10:00 Intake & Output 12/24/20 12/25/20 12/25/20 18:59 06:59 18:59 Output Total 1500 1600 Balance -1500 -1600 Output: Urine 1500 1600 Other: Voiding Method Urinal - Exam GENERAL EXAM: Alert, pleasant, 75-year-old white male with a pulse ox of 96% comfortable in no apparent distress. HEAD: Normocephalic/atraumatic. EYES: Normal reaction of pupils, equal size. Conjunctiva pink, sclera white. NOSE: Clear with pink turbinates. THROAT: No erythema or exudates. NECK: No masses, no JVD, no thyroid enlargement, no adenopathy. CHEST: No chest wall deformity. Symmetrical expansion. LUNGS: Equal air entry with no crackles, wheeze, rhonchi or dullness. CVS: Regular rate and rhythm, normal S1 and S2, no gallops, no murmurs, no rubs ABDOMEN: Soft, nontender. No hepatosplenomegaly, normal bowel sounds, no guarding or rigidity. EXTREMITIES: No clubbing, no edema, no cyanosis, 2+ pulses and upper and lower extremities. MUSCULOSKELETAL: Muscle strength and tone normal. SPINE: No scoliosis or deformity SKIN: No rashes CENTRAL NERVOUS SYSTEM: Alert and oriented -3. No focal deficits, tone is normal in all 4 extremities. PSYCHIATRIC: Alert and oriented -3. Appropriate affect. Intact judgment and insight. - Labs CBC & Chem 7: 12/25/20 07:04 12/24/20 05:36 Labs: Abnormal Lab Results - Last 24 Hours (Table) 12/24/20 12/24/20 12/24/20 Range/Units 16:25 16:36 20:15 WBC (4.50-10.00) X 10*3/uL RBC (4.40-5.60) X 10*6/uL MCH (27.0-32.0) pg RDW (11.5-14.5) % Metamyelocytes % (0-0) % Myelocytes % (0-0) % Lymphocytes # (Manual) (0.90-5.00) X 10*3/uL Monocytes # (Manual) (0.20-1.00) X 10*3/uL PT (9.0-12.0) sec INR (<1.2) POC Glucose (mg/dL) 213 H 256 H 273 H (75-99) mg/dL 12/25/20 12/25/20 12/25/20 Range/Units 07:04 07:04 07:11 WBC 11.55 H (4.50-10.00) X 10*3/uL RBC 5.82 H (4.40-5.60) X 10*6/uL MCH 26.1 L (27.0-32.0) pg RDW 18.5 H (11.5-14.5) % Metamyelocytes % 2 H (0-0) % Myelocytes % 4 H (0-0) % Lymphocytes # (Manual) 0.81 L (0.90-5.00) X 10*3/uL Monocytes # (Manual) 1.27 H (0.20-1.00) X 10*3/uL PT 17.2 H (9.0-12.0) sec INR 1.7 H (<1.2) POC Glucose (mg/dL) 125 H (75-99) mg/dL 12/25/20 Range/Units 11:17 WBC (4.50-10.00) X 10*3/uL RBC (4.40-5.60) X 10*6/uL MCH (27.0-32.0) pg RDW (11.5-14.5) % Metamyelocytes % (0-0) % Myelocytes % (0-0) % Lymphocytes # (Manual) (0.90-5.00) X 10*3/uL Monocytes # (Manual) (0.20-1.00) X 10*3/uL PT (9.0-12.0) sec INR (<1.2) POC Glucose (mg/dL) 139 H (75-99) mg/dL Microbiology - Last 24 Hours (Table) 12/22/20 05:44 Blood Culture - Preliminary Blood No Growth after 72 hours Assessment and Plan Plan: Assessment: #1. Acute hypoxic respiratory failure related to acute COVID 19 pneumonia, onset of symptoms was 6 days ago prior to presentation. Patient received first dose of COVID 19 vaccine on 12/13/2020. Patient did have exposure to his girlfriend who is COVID 19 positive #2. Streptococcus pneumonia bacteremia currently on azithromycin and Rocephin #3. Diabetes mellitus type 2 #4. History of right nephrectomy for benign tumor #5. Hard of hearing #6. Former smoker #7. Chronic A. fib on Coumadin #8. Hyponatremia, likely hypovolemic Plan: Patient has remained stable, no worsening dyspnea or hypoxia, he is on room air, vital signs have been normal limits, no acute events overnight, patient can be considered for discharge home today, he can finish outpatient course of oral Decadron. Follow-up blood cultures have shown no growth. I performed a history & physical examination of the patient and discussed their management with my nurse practitioner, Ene Antunez. I reviewed the nurse practitioner's note and agree with the documented findings and plan of care. Lung sounds are positive for diminished breath sounds. The findings and the impression was discussed with the patient. I attest to the documentation by the nurse practitioner. Time with Patient: Less than 30
--- NOTE | 2020-12-25 14:31 | P.PN ---
Progress Note - Text Progress Note Date: 12/25/20 REASON FOR FOLLOWUP : Strep pneumo bacteremia INTERVAL HISTORY: The patient is afebrile. The patient is breathing comfortably. The patient is status post laparoscopic cholecystectomy. He tolerated the procedure. Denies chest pain, shortness of breath or cough. No abdominal pain or diarrhea. PHYSICAL EXAMINATION: Blood pressure 100/61, pulse of 74, temperature 98.4. He is 94% on 2 L nasal cannula. General description is an elderly male lying in bed in no distress. RESPIRATORY SYSTEM: Unlabored breathing with decreased breath sounds at the base. No wheeze. HEART: S1, S2. Regular rate and rhythm. ABDOMEN: Soft. No tenderness. LABS: Reviewed DIAGNOSTIC IMPRESSION AND PLAN: Patient with strep pneumo bacteremia secondary to pneumonia Patient seemed to showing overall clinical improvement and is insisting on going home, plan is to Finish therapy with oral Augmentin 875 mg twice a day for 10 days and close outpatient follow-up
[2020-12-25 15:22] VITALS: BP 144/89; RESP 18; TEMP 98.6
[2020-12-25 15:57] LABS: Glucose,Whole Blood 174 mg/dL (75-99)
[2020-12-25] MEDS ORDERED: INSULIN ASPART (NovoLOG) 100 UNIT/ML VIAL SQ ONE (15:58)
[2020-12-25] MEDS ORDERED: WARFARIN 2 MG TAB PO ONE (18:00)
[2020-12-25] MEDS ORDERED: WARFARIN 1 MG TAB PO ONE (18:00)
[2020-12-25] MEDS ORDERED: WARFARIN 3 MG TAB PO ONE (18:00)
--- NOTE | 2020-12-26 07:15 | P.DS ---
Providers Date of admission: 12/21/20 14:38 Attending physician: Justin Nova Consults: 12/21/20 14:34 Consult Physician Routine Consulting Provider: Ric Obrien Consult Reason/Comments: covid, PNA Do you want consulting provider notified?: Yes 12/24/20 12:02 Consult Physician Routine Consulting Provider: Sarah Tapia Consult Reason/Comments: strept bacteremia Do you want consulting provider notified?: Yes Primary care physician: [facility] Hospital Course: Date of service: 12/25/20 Diagnoses: Bilateral COVID-19 pneumonia Bacterial pneumonia with blood cultures growing strep pneumoniae Elevated inflammatory markers Chronic atrial fibrillation with rapid ventricular rate, rate is controlled on discharge Coumadin coagulopathy with INR 4.9 , INR is 1.7 upon discharge Lactic acidosis with level 3.3, back to normal Hypovolemic hyponatremia, improved Acute kidney injury likely prerenal with possible ATN. 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 Patient received his Covid vaccine first dose on December 10, 2020. Chest x-ray showed cardiomegaly and chronic proximal changes with new patchy bilateral acute atelectasis and/or infiltrate. EKG showed atrial fibrillation with rapid ventricular rate.coronavirus PCR is detected. Patient also had positive blood culture with Streptococcus pneumoniae secondary to his bilateral pneumoniae. Patient has been evaluated by both pulmonary and infectious disease teams. He was treated accordingly with ceftriaxone 2 g daily, dexamethasone 6 mg, and he finished his therapy with Remdesivir. Patient showed interval improvement on the day of discharge he was breathing quietly, not tachypneic, not hypoxic and he is saturating 90s on room air for more than 24 hours, no respiratory symptoms, no chest pain or dyspnea. No abdominal pain or nausea vomiting or diarrhea. No headache or weakness or numbness. No urinary complaints and no fever. Patient feels he can go home and actually he was eager to go home from yesterday, and this morning he was adamant to be discharged today Patient was cleared for discharge by both pulmonary and infectious disease team. Patient will be discharged on a short course of oral antibiotics with Augmentin 10 days per ID team, as well as zinc, vitamin C and dexamethasone for 6 days. Also his INR was 1.7 upon discharge, he was discharged on warfarin 3 mg daily and he is going to follow-up with his PCP at the [facility] on 12/27/20 and to check his INR, as per discussion with the patient and his significant other Mr. Michelle Bernabe. Patient asked me to talk to his significant other Srinivasa related the discharge instruction in the information to her which I did talk to her twice on [phone] and I discussed the case with her in details including the recommendation to continue with Coumadin, check INR every 2-3 days total therapeutic between 2-3 and to hold Coumadin if INR more than 3, and she agrees with the patient to go see PCP on 12/27 as above Also patient and Srinivasa are aware of insulin dose adjustment he is on Levemir 30 units at bedtime, NovoLog insulin is added as 7 units with meals and hold glipizide and they verbalized understanding and acceptance. Also instructed to check his sugars 4 times a day and to go to emergency room if glucose is less than 70 or more than 400. PT/OT evaluated the patient and recommended home health care and to check his INR, patient, and PCP are aware [facility] and his PCP was not available but I to her colleague KATHIE Ewing and I discussed the case with her with a recommendation to monitor sugar, INR. She currently took note of these Problems and management plan were discussed with the patient and he verbalized understanding and acceptance Patient was found stable and can be discharged home in guarded prognosis however he needs follow-up as an outpatient. Patient was instructed to follow up with PCP [facility] the [facility] on 12/27 and patient and his Srinivasa agree. Also patient and were instructed to follow up with Dr. Mg/Dr. Baumann road boss in [address] Tapia infectious disease doctor in 1 week Physical exam Gen: patient is a AAOx3, no distress CVS: S1-S2, RRR, no murmur Lungs: B/L CTA, no wheezing Abdomen: soft, no distention, no tenderness, positive bowel sounds Extremity: no leg edema or induration Time spent more than 35 minutes Patient Condition at Discharge: Stable Plan - Discharge Summary Discharge Rx Participant: No New Discharge Prescriptions: New Warfarin [Coumadin] 3 mg PO DAILY #30 tab dexAMETHasone [Hexadrol] 4 mg PO DAILY 6 Days #6 tablet Metoprolol Tartrate [Lopressor] 25 mg PO BID #60 tab amLODIPine [Norvasc] 2.5 mg PO DAILY #30 tab INSULIN ASPART (NovoLOG) [NovoLOG (formulary)] 7 unit SQ AC-TID #1 vial Zinc Sulfate [Orazinc] 220 mg PO DAILY #30 cap Ascorbic Acid [Vitamin C] 500 mg PO BID #60 tab Cholecalciferol [Vitamin D3 (25 Mcg = 1000 Iu)] 125 mcg PO DAILY 30 Days #150 tablet Amoxicillin/Potassium Clav [Augmentin 875-125 Tablet] 1 tab PO Q12HR 10 Days #20 tab Continue Ferrous Sulfate [Iron (65 MG Elemental)] 325 mg PO DAILY Pantoprazole Sodium [Protonix] 40 mg PO DAILY #30 tablet. Insulin Detemir (Levemir) [Levemir] 30 unit SQ HS #1 vial Discontinued glipiZIDE [Glucotrol] 5 mg PO AC-SUPPER glipiZIDE [Glucotrol] 10 mg PO AC-BRKFST Furosemide [Lasix] 20 mg PO BID Aspirin EC [Ecotrin Low Dose] 81 mg PO DAILY Potassium Chloride ER [K-Dur 10] 10 meq PO BID Warfarin [Coumadin] 2.5 mg PO DIRECTED Discharge Medication List Ferrous Sulfate [Iron (65 MG Elemental)] 325 mg PO DAILY 05/10/20 [History] Pantoprazole Sodium [Protonix] 40 mg PO DAILY #30 tablet. 05/17/20 [Rx] Amoxicillin/Potassium Clav [Augmentin 875-125 Tablet] 1 tab PO Q12HR 10 Days #20 tab 12/25/20 [Rx] Ascorbic Acid [Vitamin C] 500 mg PO BID #60 tab 12/25/20 [Rx] Cholecalciferol [Vitamin D3 (25 Mcg = 1000 Iu)] 125 mcg PO DAILY 30 Days #150 tablet 12/25/20 [Rx] INSULIN ASPART (NovoLOG) [NovoLOG (formulary)] 7 unit SQ AC-TID #1 vial 12/25/20 [Rx] Insulin Detemir (Levemir) [Levemir] 30 unit SQ HS #1 vial 12/25/20 [Rx] Metoprolol Tartrate [Lopressor] 25 mg PO BID #60 tab 12/25/20 [Rx] Warfarin [Coumadin] 3 mg PO DAILY #30 tab 12/25/20 [Rx] Zinc Sulfate [Orazinc] 220 mg PO DAILY #30 cap 12/25/20 [Rx] amLODIPine [Norvasc] 2.5 mg PO DAILY #30 tab 12/25/20 [Rx] dexAMETHasone [Hexadrol] 4 mg PO DAILY 6 Days #6 tablet 12/25/20 [Rx] Follow up Appointment(s)/Referral(s): Leah Pringle MD [STAFF PHYSICIAN] - 2 Weeks (Please call to schedule appointment ) Porfirio Baumann DO [Doctor of Osteopathic Medicine] - 2 Weeks (road boss. Please call to make appointment ) Sarah Tapia MD [STAFF PHYSICIAN] - 1 Week (infectious disease Please call to make appointment ) [facility] [Primary Care Provider] - 12/27/20 3:30 pm (terrell Zamora, you will do virtual appointment with him also you need to go and check your INR on this Thursday 12/28) Patient Instructions/Handouts: Coronavirus Disease 2019 (COVID-19) Activity/Diet/Wound Care/Special Instructions: Home care to be arranged by [facility]. Please follow up with [facility] regarding home care agency. Heart healthy diet, low carbohydrate diets 1800 k kia per day Activity is restricted untill you see your doctor Continue Coumadin [warfarin] 3 mg every day. Check your INR every 2-3 days. You're goal INR is 2-3. Hold Coumadin [warfarin] if your INR is more than 3 We recommend to check her glucose 4 times a day, before each meal and at bedtime. keep results in a log book and bring it to your doctor on your appointment date If you have glucose less than 70 or more than 400, please call 911 on come to emergency room Discharge Disposition: HOME WITH HOME HEALTH SERVICES
--- NOTE | 2020-12-26 14:10 | CDI ---
Documentation Clarification Form Date: 12/26/20 From: Peggy Fernandez Phone: Admit Date: 12/21/2020 02:38:00 PM Patient Name: Harjit Benjamin Visit Number: [id number] Discharge Date: 12/25/2020 04:43:00 PM ATTENTION: The Clinical Documentation Specialists (CDI) and [facility] Coding Staff appreciate your assistance in clarifying documentation. Please respond to the clarification below the line at the bottom and electronically sign. The CDI & [facility] Coding staff will review the response and follow-up if needed. Please note: Queries are made part of the Legal Health Record. If you have any questions, please contact the author of this message via ITS. Dr. Marcello Alexander, Bacteremia documented in the 12/24 infectious disease consult, PNs 12/24, 12/25 and DS. Patient history/risk factors: Covid with Covid pneumonia, ATN, acute hypxic respiratory failure, Streptococcus pneumoniae pneumonia Clinical Indicators: The patient is a 75-year-old man who presented to the hospital 3 days ago for evaluation of generalized weakness, cough and increasing shortness of breath. With subjective fever and chills. WBC: 16.6.1.5, 11.15, 11.55 Left Shift: 15.9, 10.8 Blood Culture (12/21): Streptococcus pneumoniae Consult: Patient with strep pneumo bacteremia, source is likely pneumonia.Clinically doubt COVID-19 infection and this patient did have a significant elevated white count on admission and did have elevated procalcitonin. Treatment: OV Remdesivir, IV Dexamethasone, Antibiotics-IV Azithromycin, IV Rocephin, Bacteremia is considered a lab finding. Please clarify if that lab finding is clinical indicator of a more definitive medical diagnosis such as: Sepsis, POA Sepsis, Not POA Infectious Process, please specify: Other, please specify Unable to determine no sepsis MTDD
== END 2020-12-25 16:43 | disposition home health service (06) | DRG 177 ==
LOC: EC 12:57 → 3SCARD 14:38 → 4SSUR 12-23 10:26
PROVIDERS: ADMIT Internal Medicine; ATTEND Internal Medicine
PROC: XW033E5 Introduction of Remdesivir Anti-infective into Peripheral Vein, Percutaneous Approach, New Technology Group 5 (ICD-10-PCS; principal; 2020-12-21)
DX: U07.1 COVID-19 (principal); J12.82 Pneumonia due to coronavirus disease 2019; N17.0 Acute kidney failure with tubular necrosis; J96.01 Acute respiratory failure with hypoxia; J15.4 Pneumonia due to other streptococci; E87.2 Acidosis; I48.20 Chronic atrial fibrillation, unspecified; E87.1 Hypo-osmolality and hyponatremia; R78.81 Bacteremia; E11.22 Type 2 diabetes mellitus with diabetic chronic kidney disease; Z79.4 Long term (current) use of insulin; N18.30 Chronic kidney disease, stage 3 unspecified; E11.65 Type 2 diabetes mellitus with hyperglycemia; B95.3 Streptococcus pneumoniae as the cause of diseases classified elsewhere; E86.0 Dehydration; E86.1 Hypovolemia; R79.1 Abnormal coagulation profile; T45.515A Adverse effect of anticoagulants, initial encounter; I51.7 Cardiomegaly; H91.90 Unspecified hearing loss, unspecified ear; Z79.82 Long term (current) use of aspirin; Z79.01 Long term (current) use of anticoagulants; Z79.899 Other long term (current) drug therapy; Z87.891 Personal history of nicotine dependence; Z90.5 Acquired absence of kidney; Z87.448 Personal history of other diseases of urinary system; Z87.19 Personal history of other diseases of the digestive system; Z90.49 Acquired absence of other specified parts of digestive tract; Z86.718 Personal history of other venous thrombosis and embolism; Z98.890 Other specified postprocedural states; Z88.2 Allergy status to sulfonamides; Z80.9 Family history of malignant neoplasm, unspecified; Z82.49 Family history of ischemic heart disease and other diseases of the circulatory system
CPT/HCPCS: 36415; 71045; 80048; 80053; 82728; 83036; 83605; 83615; 83735; 83880; 84145; 84484; 85025; 85379; 85610; 85730; 86140; 87040; 87077; 87186; 87635; 93005; 94640; 94760; 96365; 96366; 96375; 99285

== ENCOUNTER 2024-07-28 14:47 | Inpatient (IN) | payer OTHER, MEDICARE ==
--- NOTE | 2024-07-28 15:46 | ED ---
Skin/Abscess/FB HPI - General Source: patient, family, RN notes reviewed Mode of arrival: wheelchair Limitations: no limitations <Cindy Grimes - Last Filed: 07/28/24 15:43> <Vicente Mccord - Last Filed: 07/28/24 20:40> - General Chief complaint: Wound/Laceration Stated complaint: L Leg Infection Time Seen by Provider: 07/28/24 15:35 - History of Present Illness Initial comments: Quick Note: This is a 79-year-old male who presents to the emergency department for a left lower extremity infection. Patient follows with wound care for an infection to the left lower extremity, and family states that it has been getting substantially worse over the last 3 to 4 days. It is much more red, swollen, and is now draining. Patient followed up with wound care who advised he come to the emergency department for evaluation. Not currently taking antibiotics. (Cindy Grimes) Dictation was produced using [employer] dictation software. please excuse any grammatical, word or spelling errors. Chief Complaint: 79-year-old male presents to the ER for worsening left lower extremity infection History of Present Illness: Patient 79-year-old male history present illness limited due to hard of hearing. Patient states that 3 weeks ago he was seen at wound clinic and diagnosed with cellulitis. He was prescribed antibiotics however due to some issues with the pharmacy he was not able to get his antibiotics. Went to the wound care today and was told to come to the emergency department due to significant pain and worsening cellulitic symptoms. There is no specific date of when he would receive his antibiotics. The ROS documented in this emergency department record has been reviewed and confirmed by me. Those systems with pertinent positive or negative responses have been documented in the HPI. All other systems are other negative and/or noncontributory. (Vicente Mccord) - Related Data Home Medications Medication Instructions Recorded Confirmed Ferrous Sulfate [Iron (65 MG 325 mg PO DAILY 05/10/20 12/21/20 Elemental)] Previous Rx's Medication Instructions Recorded Pantoprazole Sodium [Protonix] 40 mg PO DAILY #30 tablet. 05/17/20 Amoxicillin/Potassium Clav 1 tab PO Q12HR 10 Days #20 tab 12/25/20 [Augmentin 875-125 Tablet] Ascorbic Acid [Vitamin C] 500 mg PO BID #60 tab 12/25/20 Cholecalciferol [Vitamin D3 (25 125 mcg PO DAILY 30 Days #150 12/25/20 Mcg = 1000 Iu)] tablet INSULIN ASPART (NovoLOG) [NovoLOG 7 unit SQ AC-TID #1 vial 12/25/20 (formulary)] Insulin Detemir (Levemir) [Levemir] 30 unit SQ HS #1 vial 12/25/20 Metoprolol Tartrate [Lopressor] 25 mg PO BID #60 tab 12/25/20 Warfarin [Coumadin] 3 mg PO DAILY #30 tab 12/25/20 Zinc Sulfate [Orazinc] 220 mg PO DAILY #30 cap 12/25/20 amLODIPine [Norvasc] 2.5 mg PO DAILY #30 tab 12/25/20 dexAMETHasone ORAL [Hexadrol] 4 mg PO DAILY 6 Days #6 tablet 12/25/20 Allergies Allergy/AdvReac Type Severity Reaction Status Date / Time sulfamethoxazole Allergy Weakness Verified 12/21/20 15:08 [From Bactrim] trimethoprim [From Bactrim] Allergy Weakness Verified 12/21/20 15:08 Review of Systems ROS Other: All systems not noted in ROS Statement are negative. <Cindy Grimes - Last Filed: 07/28/24 15:43> ROS Other: All systems not noted in ROS Statement are negative. <Vicente Mccord - Last Filed: 07/28/24 20:40> ROS Statement: Those systems with pertinent positive or pertinent negative responses have been documented in the HPI. Past Medical History Past Medical History: Diabetes Mellitus, Hearing Disorder / Deafness, Renal Disease Additional Past Medical History / Comment(s): IDDM type II, R nephrectomy for beign tumor, would to L lower extremity, [place] bilateraloly-uses hearing aides. Pt states he does not know why he is on coumadin or lasix. History of Any Multi-Drug Resistant Organisms: None Reported Past Surgical History: Appendectomy Additional Past Surgical History / Comment(s): right kidney removed for benign tumor, colonoscopy. Past Anesthesia/Blood Transfusion Reactions: No Reported Reaction Additional Past Anesthesia/Blood Transfusion Reaction / Comment(s): Pt is unsure if he received blood Past Psychological History: No Psychological Hx Reported Smoking Status: Former smoker Past Alcohol Use History: None Reported Past Drug Use History: None Reported - Past Family History Father Additional Family Medical History / Comment(s): Father had "heart problems" He at the age of 91 yrs. Mother Family Medical History: Cancer Additional Family Medical History / Comment(s): Mother had cancer at the age of 84 yrs but pt does not recall type. She at the age of 91 yrs. <Cindy Grimes - Last Filed: 07/28/24 15:43> General Exam <Cindy Grimes - Last Filed: 07/28/24 15:43> <Vicente Mccord - Last Filed: 07/28/24 20:40> - General Exam Comments Initial Comments: Visual Physical Exam Vital signs reviewed General: Well-appearing, nontoxic, no acute distress. Head: Normocephalic, atraumatic Eyes: PERRLA, EOMI ENT: Airway patent Chest: Nonlabored breathing Skin: No visual rash, normal skin tone Neuro: Alert and oriented 3 Musculoskeletal: No gross abnormalities (Cindy Grimes) PHYSICAL EXAM: General Impression: Alert and oriented x3, not in acute distress HEENT: Normocephalic atraumatic, extra-ocular movements intact, pupils equal and reactive to light bilaterally, mucous membranes moist. Cardiovascular: Heart regular rate and rhythm Chest: Able to complete full sentences, no retractions, no tachypnea Abdomen: abdomen soft, non-tender, non-distended, no organomegaly Musculoskeletal: Pulses present and equal in all extremities, no peripheral edema, right lower extremity amputation Motor: no focal deficits noted Neurological: CN II-XII grossly intact, no focal motor or sensory deficits noted Skin: Warmth, erythema and palpatory pain to his left lower extremity. Signs are circumferential Psych: Normal affect and mood (Vicente Mccord) Course Vital Signs 07/28/24 07/28/24 15:00 20:28 Temperature 98.6 F Pulse Rate 67 75 Respiratory 16 18 Rate Blood Pressure 155/77 150/61 O2 Sat by Pulse 98 96 Oximetry Medical Decision Making <Cindy Grimes - Last Filed: 07/28/24 15:43> - Lab Data Result diagrams: 07/28/24 15:44 <Vicente Mccord - Last Filed: 07/28/24 20:40> - Medical Decision Making I performed the QuickNote portion of this chart. Signed Cindy Grimes PA-C. (Cindy Grimes) Was pt. sent in by a medical professional or institution (KATHIE Ornelas, [employer], urgent care, hospital, or long term...) When possible be specific @ -No Did you speak to anyone other than the patient for history (EMS, parent, family, police, friend...)? What history was obtained from this source @ -No Did you review nursing and triage notes (agree or disagree)? Why? @ -I reviewed and agree with nursing and triage notes Were old charts reviewed (outside hosp., previous admission, EMS record, old EKG, old radiological studies, urgent care reports/EKG's, long term records)? Report findings @ -No old charts were reviewed Differential Diagnosis (chest pain, altered mental status, abdominal pain women, abdominal pain men, vaginal bleeding, musculoskeletal, weakness, fever, dyspnea, syncope, headache, dizziness, GI bleed, back pain, seizure, CVA, palpatations, mental health)? @ -Cellulitis, interstitial edema, abscess EKG interpreted by me (3pts min.). @ -None done X-rays interpreted by me (1pt min.). @ -Tib-fib x-ray shows no acute processes CT interpreted by me (1pt min.). @ -None done U/S interpreted by me (1pt. min.). @ -None done What testing was considered but not performed or refused? (CT, X-rays, U/S, labs)? Why? @ -None What meds were considered but not given or refused? Why? @ -None Was smoking cessation discussed for >3mins.? @ -No Were there social determinants of health that impacted care today? How? (Homelessness, low income, unemployed, alcoholism, drug addiction, transportation, low edu. Level, literacy, decrease access to med. care, snf, re hab)? @ -No Was there de-escalation of care discussed even if they declined (Discuss DNR or withdrawal of care, Hospice)? DNR status @ -No What co-morbidities impacted this encounter? (DM, HTN, Smoking, COPD, CAD, Cancer, CVA, ARF, Chemo, Hep., AIDS, mental health diagnosis, sleep apnea, morbid obesity)? @ -None Was patient admitted / discharged? Hospital course, mention meds given and route, prescriptions, significant lab abnormalities, going to OR and other pertinent info. @ -79-year-old male presents to the emergency department after instruction by wound clinic to come to the ER to be admitted for IV antibiotics. He has been having difficulties getting his home antibiotic medications. Vital signs upon arrival are within acceptable limits. Is not hypotensive. Laboratory evaluatio n obtained. Leukocytosis of 14.8. Urinalysis positive for urinary tract infection. Patient started on vancomycin and Zosyn. Will be admitted. Case discussed with Dr. Botello of [facility] for admission. Infectious disease will be consulted Did you discuss the management of the patient with other professionals (professionals i.e. , PA, [employer], lab, RT, psych nurse, social sciences instructor, electronic device monitor, teacher, corporate security officer, classification case manager)? Give summary @ -See above Was critical care preformed (if so, how long)? @ -No Undiagnosed new problem with uncertain prognosis? @ -No Drug Therapy requiring intensive monitoring for toxicity (Heparin, Nitro, Insulin, Cardizem)? @ -No Were any procedures done? @ -No Diagnosis/symptom? Acute, or Chronic, or Acute on Chronic? Uncomplicated (without systemic symptoms) or Complicated (systemic symptoms)? @ -Cellulitis, UTI Side effects of treatment? @ -No Exacerbation, Progression, or Severe Exacerbation? @ -No Poses a threat to life or bodily function? How? (Chest pain, USA, VT, pneumonia, PE, COPD, DKA, ARF, appy, cholecystitis, CVA, Diverticulitis, Homicidal, Suicidal, threat to staff... and all critical care pts) @ -Yes (Vicente Mccord) - Lab Data Lab Results 07/28/24 07/28/24 Range/Units 15:44 16:10 WBC 14.8 H (3.8-10.6) k/uL RBC 5.42 (4.30-5.90) m/uL Hgb 15.3 (13.0-17.5) gm/dL Hct 46.1 (39.0-53.0) % MCV 85.1 (80.0-100.0) fL MCH 28.3 (25.0-35.0) pg MCHC 33.2 (31.0-37.0) g/dL RDW 17.0 H (11.5-15.5) % Plt Count 171 (150-450) k/uL MPV 8.6 Neutrophils % 86 % Lymphocytes % 8 % Monocytes % 5 % Eosinophils % 1 % Basophils % 0 % Neutrophils # 12.6 H (1.3-7.7) k/uL Lymphocytes # 1.1 (1.0-4.8) k/uL Monocytes # 0.7 (0-1.0) k/uL Eosinophils # 0.1 (0-0.7) k/uL Basophils # 0.0 (0-0.2) k/uL Anisocytosis Slight Urine Color Light Yellow Urine Appearance Turbid (Clear) Urine pH 6.5 (5.0-8.0) Ur Specific [place] 1.016 (1.001-1.035) Urine Protein Trace H (Negative) Urine Glucose (UA) 4+ H (Negative) Urine Ketones Negative (Negative) Urine Blood Small H (Negative) Urine Nitrite Negative (Negative) Urine Bilirubin Negative (Negative) Urine Urobilinogen 2.0 (<2.0) mg/dL Ur Leukocyte Esterase Large H (Negative) Urine RBC 14 H (0-5) /hpf Urine WBC >182 H (0-5) /hpf Urine WBC Clumps Many H (None) /hpf Ur Squamous Epith Cells 2 (0-4) /hpf Urine Mucus Rare H (None) /hpf Urine Yeast (Budding) Many H (None) /hpf Disposition <Cindy Grimes - Last Filed: 07/28/24 15:43> Decision Time: 20:40 <Vicente Mccord - Last Filed: 07/28/24 20:40> Clinical Impression: Cellulitis Disposition: ADMITTED IP TO THIS HOSP Condition: Fair Referrals: [facility],Clinic [Primary Care Provider] - 1-2 days
--- NOTE | 2024-07-28 17:13 | XR ---
EXAMINATION TYPE: XR tibia fibula LT DATE OF EXAM: 07/28/2024 COMPARISON: None HISTORY: Infection TECHNIQUE: 2 view left tibia and fibula FINDINGS: No acute fracture or dislocation evident. No suspicious cortical erosion to suggest acute o steomyelitis identified. Soft tissue swelling over the distal catheter is evident. Vascular calcifica tions present. IMPRESSION: 1. No suspicious radiographic changes of osteomyelitis. Three-phase bone scan can be performed for s ufficient clinical suspicion. 2. Soft tissue swelling distal left foreleg [facility], Workstation: [facility], 07/28/2024 5:11 PM
[2024-07-28 17:16] LABS: Appearance,Urine Turbid (Clear); Bilirubin,Urine Negative (Negative); Blood,Urine Small (Negative); Budding Yeast,Urine Many /hpf; Color,Urine Light Yellow; Glucose,Urine (UA) 4+ (Negative); Ketones,Urine Negative (Negative); Leukocyte Esterase,Urine Large (Negative); Mucus,Urine Rare /hpf; Nitrite,Urine Negative (Negative); PH, Urine 6.5 (5.0-8.0); Protein,Urine Trace (Negative); RBC,Urine 14 /hpf (0-5); Specific Gravity,Urine 1.016 (1.001-1.035); Squamous Epithelial Cell,Urine 2 /hpf (0-4); WBC,Urine >182 /hpf (0-5)
[2024-07-28] MEDS ORDERED: VANCOMYCIN IV PER PHARMACY 1 EACH MISC MISCELLANE PRN (18:12)
[2024-07-28] MEDS: VANCOMYCIN 1,500 MG in SODIUM CHLORIDE 0.9% 500 ML 500 ML IVPB ONE (20:17)
[2024-07-28 20:28] LABS: Anisocytosis Slight; Basophils % (A) 0 %; Eosinophils # (A) 0.1 k/uL (0-0.7); Eosinophils % (A) 1 %; HCT 46.1 % (39.0-53.0); HGB 15.3 gm/dL (13.0-17.5); Lymphocytes # (A) 1.1 k/uL (1.0-4.8); Lymphocytes % (A) 8 %; MCH 28.3 pg (25.0-35.0); MCHC 33.2 g/dL (31.0-37.0); MCV 85.1 fL (80.0-100.0); Mean Platelet Volume 8.6; Monocytes # (A) 0.7 k/uL (0-1.0); Monocytes % (A) 5 %; Neutrophils # (A) 12.6 k/uL (1.3-7.7); Neutrophils % (A) 86 %; Platelet Count 171 k/uL (150-450); RBC 5.42 m/uL (4.30-5.90); WBC 14.8 k/uL (3.8-10.6)
[2024-07-28] MEDS ORDERED: ACETAMINOPHEN TAB 325 MG TAB PO PRN (20:34)
[2024-07-28] MEDS ORDERED: MORPHINE SULFATE 4 MG/ML SYRINGE IV PRN (20:34)
[2024-07-28] MEDS ORDERED: ONDANSETRON 4 MG/2 ML VIAL IVP PRN (20:34)
[2024-07-28] MEDS ORDERED: NALOXONE 0.4 MG/ML 1 ML VIAL IV PRN (20:34)
[2024-07-28 20:55] LABS: ALT 11 U/L (4-49); African American GFR (CKD) 56 (>60 ml/min/1.73 sqM); Albumin 4.4 g/dL (3.5-5.0); Anion Gap 8 mmol/L; Blood Urea Nitrogen 17 mg/dL (9-20); Calcium 9.1 mg/dL (8.4-10.2); Carbon Dioxide 25 mmol/L (22-30); Chloride 102 mmol/L (98-107); Glucose 161 mg/dL (74-99); Non-African American GFR(CKD) 49 (>60 ml/min/1.73 sqM); Sodium 135 mmol/L (137-145); Total Bilirubin 2.9 mg/dL (0.2-1.3); Total Protein 7.3 g/dL (6.3-8.2)
[2024-07-28 21:07] LABS: AST 25 U/L (17-59); Alkaline Phosphatase 62 U/L (38-126); Potassium 4.4 mmol/L (3.5-5.1)
[2024-07-28] MEDS: ZINC OXIDE PASTE (Z-GUARD) 1 APPLIC TOPICAL ONE (23:00)
[2024-07-28] MEDS: PIPERACILLIN-TAZOBACTAM 3.375 GM in SODIUM CHLORIDE 0.9% 100 ML IVPB STA (23:20)
--- NOTE | 2024-07-28 23:22 | P.HPIM ---
History of Present Illness H&P Date: 07/28/24 Chief Complaint: leg swelling and erythema Patient is a 75-year-old male with diabetes, A-fib (on warfarin), right BKA came in for worsening of left leg infection. Patient has been seeing wound care nurse but noted increased swelling 4 days ago. Today he was seen by wound care and noticed that the left lower leg is also become erythematous and really swollen and advised patient to seek care at the ED. He denies fever, weakness of affected leg, changes in sensation, calf tenderness, nausea or vomiting, shortness of breath, chest pain. Review of systems: Pertinent positives and negatives as discussed in HPI, a complete review of systems was performed and all other systems are negative. Social history: Tobacco: Prior tobacco use. Smoked 1 to have a pack per day for 6 to 7 years. Quit 20 years ago Alcohol: Former alcohol use. Quit 20 years ago Recreational drugs: Denies illicit drug use Travel: No recent travel Physical examination: Vital signs reviewed General: non toxic, no distress, appears at stated age, Derm: no unusual rashes/lesions, warm, left leg is erythematous from ankle to tanner area with tenderness on palpation, scaling and swelling, erythema noted on dorsum of the left leg which has not spread. Head: atraumatic, normocephalic, symmetric Eyes: EOMI, anicteric sclera, pupils equal round reactive to light ENT: Nose and ears atraumatic Neck: No masses or lesions, trachea midline, supple Mouth: no lip lesion, mucus membranes moist Cardiovascular: S1S2 irregularly irregular, no murmur Lungs: CTA bilateral, no rhonchi, no rales, no accessory muscle use Abdominal: soft, nondistended, nontender to palpation, no guarding Ext: muscle strength 5 out of 5 in bilateral upper and distal lower extremities grossly, no gross muscle atrophy, no contractures, positive dorsalis pedis pulse left leg, no edema. Neuro: CN II-XI grossly intact, no gross focal neuro deficits Psych: Alert and oriented x 3, appropriate affect and mood Assessment/Plan: 79-year-old male with left leg cellulitis that has failed to be treated with wound care and oral antibiotics. Imaging is negative for fractures or VTE. ED documentation reviewed and agreed to admit this patient for worsening left leg cellulitis. Anticipated length of stay greater than 2 midnights #. Cellulitis of the left lower leg WBC 14.8 which is elevated. Lactic acid normal at 2. Tibia-fibula x-ray is negative for fractures or osteomyelitis. Patient being managed for cellulitis via wound care. Cellulitis with x-ray today. Follow-up blood culture -Zosyn 3.375 IVPB every 8 hours -Pain control with Tylenol 650 mg p.o. every 6 hours as needed, and morphine 4 mg IV every 4 hours as needed -Zofran 4 mg IVP every 8 hours as needed -CBC at a.m. -Consult wound care -Consult infectious disease elevated CRP 19 #. Insulin-dependent diabetes mellitus, uncontrolled #. GRETCHEN likely due to above bun 17 unremarkable , creatinine 1.37 elevated Sodium 135 potassium 4.4 unremarkable Continue with IV fluid hydration with normal saline at 100 cc/h Monitor urine output Avoid nephrotoxic meds Monitor renal function Urinalysis shows positive group for glucose (most likely secondary to Jardiance () and yeast. -Insulin sliding scale medium dose ACHS -Glucose Accu-Cheks ACHS, monitor for hypoglycemia -Levemir 30 units once a day -A1c and BMP at a.m. Chronic conditions: #. A-fib, controlled: On warfarin dosing by pharmacy -Monitor PT and INR -Resume home medications once reconciled DVT prophylaxis: on warfarine for afib Discussed with: Patient Anticipated discharge place: Home Past Medical History Past Medical History: Diabetes Mellitus, Hearing Disorder / Deafness, Renal Disease Additional Past Medical History / Comment(s): IDDM type II, R nephrectomy for beign tumor, would to L lower extremity, [place] bilateraloly-uses hearing aides. Pt states he does not know why he is on coumadin or lasix. History of Any Multi-Drug Resistant Organisms: None Reported Past Surgical History: Appendectomy Additional Past Surgical History / Comment(s): right kidney removed for benign tumor, colonoscopy. Past Anesthesia/Blood Transfusion Reactions: No Reported Reaction Additional Past Anesthesia/Blood Transfusion Reaction / Comment(s): Pt is unsure if he received blood Past Psychological History: No Psychological Hx Reported Smoking Status: Former smoker Past Alcohol Use History: None Reported Past Drug Use History: None Reported - Past Family History Father Additional Family Medical History / Comment(s): Father had "heart problems" He at the age of 91 yrs. Mother Family Medical History: Cancer Additional Family Medical History / Comment(s): Mother had cancer at the age of 84 yrs but pt does not recall type. She at the age of 91 yrs. Medications and Allergies Home Medications Medication Instructions Recorded Confirmed Type Ferrous Sulfate [Iron (65 MG 325 mg PO DAILY 05/10/20 07/28/24 History Elemental)] Pantoprazole Sodium [Protonix] 40 mg PO DAILY #30 tablet. 05/17/20 07/28/24 Rx amLODIPine [Norvasc] 2.5 mg PO DAILY #30 tab 12/25/20 07/28/24 Rx Doxycycline Hyclate 100 mg PO DIRECTED 07/28/24 07/28/24 History Empagliflozin [Jardiance] 10 mg PO DAILY 07/28/24 07/28/24 History Furosemide [Lasix] 20 mg PO HS 07/28/24 07/28/24 History Furosemide [Lasix] 40 mg PO DAILY 07/28/24 07/28/24 History Insulin Glargine [Lantus Vial] 35 unit SQ HS 07/28/24 07/28/24 History Metoprolol Tartrate [Lopressor] 12.5 mg PO BID 07/28/24 07/28/24 History Potassium Chloride ER [K-Dur 10] 10 meq PO DAILY 07/28/24 07/28/24 History Selenium Sulfide 1 applic TOPICAL DAILY 07/28/24 07/28/24 History Warfarin [Coumadin] 2.5 mg PO HS 07/28/24 07/28/24 History Allergies Allergy/AdvReac Type Severity Reaction Status Date / Time sulfamethoxazole Allergy Weakness Verified 07/28/24 20:41 [From Bactrim] trimethoprim [From Bactrim] Allergy Weakness Verified 07/28/24 20:41 Physical Exam Vitals: Vital Signs Temp Pulse Resp BP Pulse Ox 07/28/24 20:28 75 18 150/61 96 07/28/24 15:00 98.6 F 67 16 155/77 98 Intake and Output 07/28/24 07/28/24 07/28/24 06:59 14:59 22:59 Other: Weight 90.718 kg Results CBC & Chem 7: 07/28/24 15:44 07/28/24 15:44 Labs: Abnormal Lab Results - Last 24 Hours (Table) 10/17/24 10/17/24 10/17/24 Range/Units 15:44 15:44 16:10 WBC 14.8 H (3.8-10.6) k/uL RDW 17.0 H (11.5-15.5) % Neutrophils # 12.6 H (1.3-7.7) k/uL Sodium 135 L (137-145) mmol/L Creatinine 1.37 H (0.66-1.25) mg/dL Glucose 161 H (74-99) mg/dL Total Bilirubin 2.9 H (0.2-1.3) mg/dL C-Reactive Protein 19.0 H (<1.0) mg/dL Urine Protein Trace H (Negative) Urine Glucose (UA) 4+ H (Negative) Urine Blood Small H (Negative) Ur Leukocyte Esterase Large H (Negative) Urine RBC 14 H (0-5) /hpf Urine WBC >182 H (0-5) /hpf Urine WBC Clumps Many H (None) /hpf Urine Mucus Rare H (None) /hpf Urine Yeast (Budding) Many H (None) /hpf Assessment and Plan Assessment: I have seen and evaluated the patient today. I Discussed the case with the resident and agree with the resident's findings I edited the assessment and plan as necessary as documented in the resident's note.
[2024-07-28] MEDS ORDERED: DEXTROSE 50% SYRINGE 50 ML IVP PRN ×2 (23:38)
[2024-07-29] MEDS: PIPERACILLIN-TAZOBACTAM 3.375 GM in SODIUM CHLORIDE 0.9% 100 ML IVPB SCH (00:35)
[2024-07-29] MEDS: INSULIN DETEMIR (LEVEMIR) 100 UNIT/ML SYR SQ SCH (00:42)
[2024-07-29] MEDS: SODIUM CHLORIDE 0.9% 1,000 ML IV SCH ×2 (00:42→04:52)
[2024-07-29] MEDS ORDERED: VANCOMYCIN IV PER PHARMACY 1 EACH MISC MISCELLANE PRN (01:03)
[2024-07-29 02:37] LABS: INR 1.7 (<1.2); Prothrombin Time 17.6 sec (10.0-12.5)
[2024-07-29 03:27] LABS: Erythrocyte Sedimentation Rate 43 mm/Hr (0-20)
[2024-07-29 06:46] LABS: INR 1.9 (<1.2); Prothrombin Time 18.8 sec (10.0-12.5)
[2024-07-29 07:32] LABS: ALT 9 U/L (4-49); AST 19 U/L (17-59); African American GFR (CKD) 61 (>60 ml/min/1.73 sqM); Albumin 3.6 g/dL (3.5-5.0); Albumin/Globulin Ratio 1.3; Alkaline Phosphatase 59 U/L (38-126); Anion Gap 8 mmol/L; Blood Urea Nitrogen 17 mg/dL (9-20); Calcium 8.9 mg/dL (8.4-10.2); Carbon Dioxide 26 mmol/L (22-30); Chloride 100 mmol/L (98-107); Globulin 2.7 g/dL; Glucose 128 mg/dL (74-99); Non-African American GFR(CKD) 53 (>60 ml/min/1.73 sqM); Potassium 4.1 mmol/L (3.5-5.1); Sodium 134 mmol/L (137-145); Total Bilirubin 3.2 mg/dL (0.2-1.3); Total Protein 6.3 g/dL (6.3-8.2)
[2024-07-29 08:01] LABS: Glucose,Whole Blood 121 mg/dL (70-110)
[2024-07-29] MEDS: INSULIN ASPART (NovoLOG) 100 UNIT/ML VIAL SQ SCH (08:02)
[2024-07-29] MEDS ORDERED: SELENIUM SULFIDE TOPICAL SCH (09:00)
--- NOTE | 2024-07-29 09:06 | CDI ---
Documentation Clarification Form Date: 07/29/2024 From: Stacey Wheeler RN CCDS Phone: [phone] Admit Date: 07/28/2024 08:35:00 PM Patient Name: Harjit Benjamin Visit Number: [id number] Discharge Date: ATTENTION: The Clinical Documentation Specialists (CDI) and [facility] Coding Staff appreciate your assistance in clarifying documentation. Please respond to the clarification below the line at the bottom and electronically sign. The CDI & [facility] Coding staff will review the response and follow-up if needed. Please note: Queries are made part of the Legal Health Record. If you have any questions, please contact the author of this message via ITS. Doctor/Provider: Candi Heath MD: Cellulitis is documented in the H&P 07/28. Additional clarification regarding the type of cellulitis is requested. History/risk factors: 79-year-old male with a history of IDDM, Afib and right BKA who presents with worsening left leg infection Clinical Indicators: 07/28 ED note, HPI: "Patient follows with wound care for an infection to the left lower extremity, and family states that it has been getting substantially worse over the last 3 to 4 days. It is much more red, swollen, and is now draining." 07/28 H&P, Assessment/Plan: "Cellulitis of the left lower leg, Insulin-dependent diabetes mellitus, uncontrolled" 07/28 WBC: 14.8 07/28, 07/29 Glucose: 161, 128 07/29 Glucose POC: 121 Treatment: Vancomycin 1500mg IV once 07/28 then [id number] to start 07/29 Zosyn 3.375gram IV once 07/28 then [id number] start 07/29 Levemir 30units SubQ at HS start 07/28 Novolog SubQ ACHS to scale Please clarify the etiology of the cellulitis, if known: [ ] Cellulitis is a diabetic skin complication [ ] Cellulitis is not a diabetic skin complication [ ] Other, please specify: [ ] Unable to determine Cellulitis is a diabetic skin complication MTDD
[2024-07-29] MEDS: FUROSEMIDE 40 MG TAB PO SCH (09:11)
[2024-07-29] MEDS: amLODIPine 2.5 MG TAB PO SCH (09:11)
[2024-07-29] MEDS: METOPROLOL TARTRATE 12.5 MG TAB PO SCH (09:11)
[2024-07-29] MEDS: FERROUS SULFATE 325 MG TAB PO SCH (09:11)
[2024-07-29] MEDS: PANTOPRAZOLE 40 MG TABLET PO SCH (09:11)
[2024-07-29] MEDS: VANCOMYCIN 1,500 MG in SODIUM CHLORIDE 0.9% 500 ML 500 ML IVPB SCH (11:32)
[2024-07-29 11:40] LABS: Glucose,Whole Blood 171 mg/dL (70-110)
--- NOTE | 2024-07-29 16:12 | P.PN ---
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 He presented to the emergency department on 07/28/2024 secondary to left lower extremity redness and swelling. He reports following wound care outpatient and experienced increased redness and swelling approximately 4 days ago which progressively worsened and so he returned to wound care center and was sent to the emergency department for further evaluation and admission for IV antibiotics. Upon arrival to our facility, patient underwent evaluation in the emergency department. Vital signs upon arri ramone show blood pressure 155/77, heart rate 67, respiratory rate 16, temp 98.6 F, and SpO2 of 98% on room air. X-ray left lower tib-fib showing soft tissue swelling of distal left foreleg with no suspicious radiographic changes concerning for osteomyelitis at this time. Labs were completed and reviewed. CBC showing leukocytosis with WBC count of 14.8. BMP showing mildly elevated renal function with BUN of 17, creatinine of 1.37, and GFR 49 with baseline creatinine around 1.2. Blood glucose was 161. Lactic acid was 2.0. Liver function showing hyperbilirubinemia with bilirubin of 2.9, likely chronic. Urinalysis was positive for infection with greater than 182 WBCs, large leukocytes, protein, glucose, and blood. Patient was started on IV antibiotics for treatment of UTI and left lower extremity cellulitis and admitted under our services with consultation to infectious disease. Physical exam: Patient seen and fully evaluated at bedside. He currently reports controlled pain of left lower extremity and only complaint is TV is not working at this time. Vital signs reviewed and stable. General: Nontoxic, no distress and appears stated age. Derm: Skin warm and dry, normal coloration for ethnicity. Head: Atraumatic, normocephalic and symmetric. Eyes: EOM's intact, no lid lag, and anicteric sclera Mouth: no lip lesions, mucus membranes moist Cardiovascular: regular rate and rhythm with normal S1S2, no murmur, gallop, or rub. Lungs: Respirations even, regular, and unlabored on room air. Lungs CTA bilaterally, no rhonchi, no rales, no wheezing, and no accessory muscle usage. Abdominal: soft, nontender to palpation, no guarding, no appreciable organomegaly Ext: Right AKA. Left lower extremity swelling and erythema consistent with cellulitis. No open wounds or drainage. Neuro: Speech clear, face symmetrical and CN II-XII grossly intact with no noted focal neuro deficits Psych: Alert and oriented to person, place, time, and situation. Appropriate and pleasant affect. Assessment and Plan of Care: 79-year-old male with left leg cellulitis that has failed to be treated with wound care and oral antibiotics. Imaging is negative for fractures or VTE. Cellulitis of the left lower leg in patient with poorly controlled diabetes UTI -WBC 14.8 which is elevated. Lactic acid normal at 2. Tibia-fibula x-ray is negative for fractures or osteomyelitis. Patient was being managed outpatient for cellulitis via wound care clinic. -Infectious disease following, discussed case with Dr. Tapia. -Continue IV antibiotics with cefazolin 2 g every 8 hours. -Medicare and pain management with Tylenol 650 mg p.o. every 6 hours as needed for mild to moderate pain, and morphine 4 mg IV every 4 hours as needed for management of severe pain -Zofran 4 mg IVP every 8 hours as needed for nausea -Wound care consulted, appreciate recommendations -CRP 19 -Follow-up on urine and blood culture result Insulin-dependent diabetes mellitus, poorly controlled -Hemoglobin A1c 7.4%. -Continue Levemir 30 units nightly and glycemic protocol with NovoLog sliding scale. Acute kidney injury on chronic kidney disease status post history of right nephrectomy -Repeat morning labs showing improvement of renal function closer to baseline with BUN of 17, creatinine of 1.28, GFR 53. -Discontinue IV fluids and resume oral Lasix 40 mg daily and 20 mg nightly. Paroxysmal atrial fibrillation -Continue Coumadin, pharmacy to dose for goal therapeutic range of 2-3. Currently INR subtherapeutic at 1.9. Hypertension -Monitor vital signs and continue amlodipine 2.5 mg daily and metoprolol 12.5 mg twice daily. Data and imaging reviewed: Vital signs reviewed. Blood pressure 162/75, heart rate 76, respiratory rate 16, and SpO2 of 96% on room air. Morning labs reviewed. INR slightly subtherapeutic at 1.9. BMP showing mild hyponatremia with sodium of 134 and renal function showing BUN of 17, creatinine of 1.28, and GFR of 53. Blood glucose 128. Hemoglobin A1c 7.4%. Total bili elevated at 3.2. CODE STATUS: Full code DVT prophylaxis: Coumadin Anticipated discharge date: Pending clinical course Anticipated discharge place: Home with home care Patient was seen independently by Nurse Pracitioner. This document was prepared using [employer] dictation software. Please allow for errors in long wall mining machine tender, while rare they do occur. I reviewed the documentation as provided by the KAYLAN above, who is the original author of this note. I agree with the documented assessment and plan, with the following changes: none Objective - Vital Signs Vital signs: Vital Signs Temp 98.6 F 07/28/24 15:00 Pulse 76 07/29/24 06:43 Resp 16 07/29/24 06:43 BP 162/75 07/29/24 06:43 Pulse Ox 96 07/29/24 06:43 FiO2 Intake & Output 07/28/24 07/29/24 07/29/24 18:59 06:59 18:59 Weight 90.718 kg - Labs CBC & Chem 7: 07/28/24 15:44 07/29/24 06:36 Labs: Abnormal Lab Results - Last 24 Hours (Table) 07/28/24 07/28/24 07/28/24 Range/Units 15:44 15:44 16:10 WBC 14.8 H (3.8-10.6) k/uL RDW 17.0 H (11.5-15.5) % Neutrophils # 12.6 H (1.3-7.7) k/uL ESR 43 H (0-20) mm/Hr PT (10.0-12.5) sec INR (<1.2) Sodium 135 L (137-145) mmol/L Creatinine 1.37 H (0.66-1.25) mg/dL Glucose 161 H (74-99) mg/dL POC Glucose (mg/dL) (70-110) mg/dL Total Bilirubin 2.9 H (0.2-1.3) mg/dL C-Reactive Protein 19.0 H (<1.0) mg/dL Urine Protein Trace H (Negative) Urine Glucose (UA) 4+ H (Negative) Urine Blood Small H (Negative) Ur Leukocyte Esterase Large H (Negative) Urine RBC 14 H (0-5) /hpf Urine WBC >182 H (0-5) /hpf Urine WBC Clumps Many H (None) /hpf Urine Mucus Rare H (None) /hpf Urine Yeast (Budding) Many H (None) /hpf 07/29/24 07/29/24 07/29/24 Range/Units 02:14 06:04 06:36 WBC (3.8-10.6) k/uL RDW (11.5-15.5) % Neutrophils # (1.3-7.7) k/uL ESR (0-20) mm/Hr PT 17.6 H 18.8 H (10.0-12.5) sec INR 1.7 H 1.9 H (<1.2) Sodium 134 L (137-145) mmol/L Creatinine 1.28 H (0.66-1.25) mg/dL Glucose 128 H (74-99) mg/dL POC Glucose (mg/dL) (70-110) mg/dL Total Bilirubin 3.2 H (0.2-1.3) mg/dL C-Reactive Protein (<1.0) mg/dL Urine Protein (Negative) Urine Glucose (UA) (Negative) Urine Blood (Negative) Ur Leukocyte Esterase (Negative) Urine RBC (0-5) /hpf Urine WBC (0-5) /hpf Urine WBC Clumps (None) /hpf Urine Mucus (None) /hpf Urine Yeast (Budding) (None) /hpf 07/29/24 Range/Units 07:59 WBC (3.8-10.6) k/uL RDW (11.5-15.5) % Neutrophils # (1.3-7.7) k/uL ESR (0-20) mm/Hr PT (10.0-12.5) sec INR (<1.2) Sodium (137-145) mmol/L Creatinine (0.66-1.25) mg/dL Glucose (74-99) mg/dL POC Glucose (mg/dL) 121 H (70-110) mg/dL Total Bilirubin (0.2-1.3) mg/dL C-Reactive Protein (<1.0) mg/dL Urine Protein (Negative) Urine Glucose (UA) (Negative) Urine Blood (Negative) Ur Leukocyte Esterase (Negative) Urine RBC (0-5) /hpf Urine WBC (0-5) /hpf Urine WBC Clumps (None) /hpf Urine Mucus (None) /hpf Urine Yeast (Budding) (None) /hpf
[2024-07-29 18:04] LABS: Glucose,Whole Blood 164 mg/dL (70-110)
[2024-07-29] MEDS: WARFARIN 3 MG TAB PO ONE (20:12)
[2024-07-29] MEDS: FUROSEMIDE 20 MG TAB PO SCH (20:13)
[2024-07-29] MEDS ORDERED: NON FORMULARY DRUG (Insulin Glargine 100 UNIT/ML Ml) SQ SCH (21:00)
[2024-07-29 21:22] LABS: Glucose,Whole Blood 129 mg/dL (70-110)
--- NOTE | 2024-07-29 23:13 | P.CONS ---
History of Present Illness - Reason for Consult Consult date: 07/29/24 Infection Requesting physician: Vicente Mccord - Chief Complaint Increasing swelling redness to the left leg x few days - History of Present Illness Patient is 79-year-old male with a past medical history significant for diabetes mellitus right nephrectomy for benign tumor hard of hearing, patient presenting to the hospital for evaluation of increasing swelling and redness to the left lower extremity that apparently has been getting worse over the last 3 to 4 days has been having more red and swollen and apparently was also draining some clear fluid patient has been complaining of some dull aching pain, mild to moderate intensity without radiation patient did have some chills but denies high-grade fever patient on presentation to the hospital was afebrile and no fever have recorded subsequently patient was not tachycardic hypotensive or hypoxic patient did have white count of 14.8 with a left shift creatinine is mildly elevated at 1.3 7 repeat is 1.28 liver enzymes are normal patient did have x-ray of the tibia and fibula that was negative for any fracture or bony abnormality patient was started on vancomycin and Zosyn infectious disease was c onsulted for further management of antibiotic therapy Review of Systems Positive point and negatives has been mentioned in the HPI, complete review of systems was performed and all other systems are negative Past Medical History Past Medical History: Diabetes Mellitus, Hearing Disorder / Deafness, Renal Disease Additional Past Medical History / Comment(s): IDDM type II, R nephrectomy for beign tumor, would to L lower extremity, [place] bilateraloly-uses hearing aides. Pt states he does not know why he is on coumadin or lasix. History of Any Multi-Drug Resistant Organisms: None Reported Past Surgical History: Appendectomy Additional Past Surgical History / Comment(s): right kidney removed for benign tumor, colonoscopy. Past Anesthesia/Blood Transfusion Reactions: No Reported Reaction Additional Past Anesthesia/Blood Transfusion Reaction / Comm: Pt is unsure if he received blood Past Psychological History: No Psychological Hx Reported Smoking Status: Former smoker Past Alcohol Use History: None Reported Past Drug Use History: None Reported - Past Family History Father Additional Family Medical History / Comment(s): Father had "heart problems" He at the age of 91 yrs. Mother Family Medical History: Cancer Additional Family Medical History / Comment(s): Mother had cancer at the age of 84 yrs but pt does not recall type. She at the age of 91 yrs. Medications and Allergies Home Medications Medication Instructions Recorded Confirmed Type Ferrous Sulfate [Iron (65 MG 325 mg PO DAILY 05/10/20 07/28/24 History Elemental)] Pantoprazole Sodium [Protonix] 40 mg PO DAILY #30 tablet. 05/17/20 07/28/24 Rx amLODIPine [Norvasc] 2.5 mg PO DAILY #30 tab 12/25/20 07/28/24 Rx Doxycycline Hyclate 100 mg PO DIRECTED 07/28/24 07/28/24 History Empagliflozin [Jardiance] 10 mg PO DAILY 07/28/24 07/28/24 History Furosemide [Lasix] 20 mg PO HS 07/28/24 07/28/24 History Furosemide [Lasix] 40 mg PO DAILY 07/28/24 07/28/24 History Insulin Glargine [Lantus Vial] 35 unit SQ HS 07/28/24 07/28/24 History Metoprolol Tartrate [Lopressor] 12.5 mg PO BID 07/28/24 07/28/24 History Potassium Chloride ER [K-Dur 10] 10 meq PO DAILY 07/28/24 07/28/24 History Selenium Sulfide 1 applic TOPICAL DAILY 07/28/24 07/28/24 History Warfarin [Coumadin] 2.5 mg PO HS 07/28/24 07/28/24 History Allergies Allergy/AdvReac Type Severity Reaction Status Date / Time sulfamethoxazole Allergy Weakness Verified 07/28/24 20:41 [From Bactrim] trimethoprim [From Bactrim] Allergy Weakness Verified 07/28/24 20:41 Physical Exam Vitals: Vital Signs Temp Pulse Resp BP Pulse Ox 07/29/24 11:37 151/56 07/29/24 11:27 78 17 95 07/29/24 06:43 76 16 162/75 96 07/28/24 23:30 86 18 137/69 96 07/28/24 20:28 75 18 150/61 96 07/28/24 15:00 98.6 F 67 16 155/77 98 Intake and Output 07/28/24 07/29/24 07/29/24 22:59 06:59 14:59 Other: Weight 90.718 kg GENERAL DESCRIPTION: Elderly male lying in bed, no distress. No tachypnea or accessory muscle of respiration use. HEENT: Shows Pallor , no scleral icterus. Oral mucous membrane is dry. No pharyngeal erythema or thrush NECK: Trachea central, no thyromegaly. LUNGS: Unlabored breathing. Clear to auscultation anteriorly. No wheeze or crackle. HEART: S1, S2, regular rate and rhythm. No loud murmur ABDOMEN: Soft, no tenderness , guarding or rigidity, no organomegaly EXTREMITIES: Diffuse swelling redness and warmth of the left lower extremity no skin breakdown or drainage was noticed SKIN: No rash, no masses palpable. NEUROLOGICAL: The patient is awake, alert, oriented x3, mood and affect normal. Results CBC & Chem 7: 07/28/24 15:44 07/29/24 06:36 Labs: Abnormal Lab Results - Last 24 Hours (Table) 07/28/24 07/28/24 07/28/24 Range/Units 15:44 15:44 16:10 WBC 14.8 H (3.8-10.6) k/uL RDW 17.0 H (11.5-15.5) % Neutrophils # 12.6 H (1.3-7.7) k/uL ESR 43 H (0-20) mm/Hr PT (10.0-12.5) sec INR (<1.2) Sodium 135 L (137-145) mmol/L Creatinine 1.37 H (0.66-1.25) mg/dL Glucose 161 H (74-99) mg/dL POC Glucose (mg/dL) (70-110) mg/dL Hemoglobin A1c (<=6.0) % Total Bilirubin 2.9 H (0.2-1.3) mg/dL C-Reactive Protein 19.0 H (<1.0) mg/dL Urine Protein Trace H (Negative) Urine Glucose (UA) 4+ H (Negative) Urine Blood Small H (Negative) Ur Leukocyte Esterase Large H (Negative) Urine RBC 14 H (0-5) /hpf Urine WBC >182 H (0-5) /hpf Urine WBC Clumps Many H (None) /hpf Urine Mucus Rare H (None) /hpf Urine Yeast (Budding) Many H (None) /hpf 07/29/24 07/29/24 07/29/24 Range/Units 02:14 06:04 06:36 WBC (3.8-10.6) k/uL RDW (11.5-15.5) % Neutrophils # (1.3-7.7) k/uL ESR (0-20) mm/Hr PT 17.6 H 18.8 H (10.0-12.5) sec INR 1.7 H 1.9 H (<1.2) Sodium 134 L (137-145) mmol/L Creatinine 1.28 H (0.66-1.25) mg/dL Glucose 128 H (74-99) mg/dL POC Glucose (mg/dL) (70-110) mg/dL Hemoglobin A1c (<=6.0) % Total Bilirubin 3.2 H (0.2-1.3) mg/dL C-Reactive Protein (<1.0) mg/dL Urine Protein (Negative) Urine Glucose (UA) (Negative) Urine Blood (Negative) Ur Leukocyte Esterase (Negative) Urine RBC (0-5) /hpf Urine WBC (0-5) /hpf Urine WBC Clumps (None) /hpf Urine Mucus (None) /hpf Urine Yeast (Budding) (None) /hpf 07/29/24 07/29/24 07/29/24 Range/Units 06:42 07:59 11:38 WBC (3.8-10.6) k/uL RDW (11.5-15.5) % Neutrophils # (1.3-7.7) k/uL ESR (0-20) mm/Hr PT (10.0-12.5) sec INR (<1.2) Sodium (137-145) mmol/L Creatinine (0.66-1.25) mg/dL Glucose (74-99) mg/dL POC Glucose (mg/dL) 121 H 171 H (70-110) mg/dL Hemoglobin A1c 7.4 H (<=6.0) % Total Bilirubin (0.2-1.3) mg/dL C-Reactive Protein (<1.0) mg/dL Urine Protein (Negative) Urine Glucose (UA) (Negative) Urine Blood (Negative) Ur Leukocyte Esterase (Negative) Urine RBC (0-5) /hpf Urine WBC (0-5) /hpf Urine WBC Clumps (None) /hpf Urine Mucus (None) /hpf Urine Yeast (Budding) (None) /hpf Assessment and Plan (1) Left leg cellulitis Current Visit: Yes Status: Acute Code(s): L03.116 - CELLULITIS OF LEFT LOWER LIMB SNOMED Code(s): 55731774408081614 (2) Leukocytosis Current Visit: Yes Status: Acute Code(s): D72.829 - ELEVATED WHITE BLOOD CELL COUNT, UNSPECIFIED SNOMED Code(s): 628925604 (3) Allergy to sulfa drugs Current Visit: Yes Status: Acute Code(s): Z88.2 - ALLERGY STATUS TO SULFONAMIDES SNOMED Code(s): 28497626 Plan: 1patient presented to hospital with increasing swelling and redness to the left lower extremity and this patient has been diagnosed with a cellulitis with diffuse swelling and redness more likely streptococcal disease clinically doubt MRSA or gram-negative infection 2-patient with mild elevated creatinine and only kidney, high risk of nephrotoxicity from vancomycin and Zosyn combination which will be discontinued 3-we will start the patient cefazolin 2 g every 8 hours We will follow on clinical condition and cultures to further adjust medication if needed Thank you for this consultation we will follow the patient along with you Dictation was produced using [employer] dictation software. please excuse any grammatical, word or spelling errors. Time with Patient: Greater than 30
[2024-07-30 07:23] LABS: Glucose,Whole Blood 111 mg/dL (70-110)
[2024-07-30 09:52] LABS: INR 1.5 (<1.2); Prothrombin Time 15.2 sec (10.0-12.5)
[2024-07-30 11:58] LABS: Glucose,Whole Blood 171 mg/dL (70-110)
[2024-07-30] MEDS ORDERED: HYDROcodone/APAP 5-325MG 1 EACH TAB PO PRN (15:34)
--- NOTE | 2024-07-30 15:36 | P.PN ---
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 He presented to the emergency department on 07/28/2024 secondary to left lower extremity redness and swelling. He reports following wound care outpatient and experienced increased redness and swelling approximately 4 days ago which progressively worsened and so he returned to wound care center and was sent to the emergency department for further evaluation and admission for IV antibiotics. Upon arrival to our facility, patient underwent evaluation in the emergency department. Vital signs upon arri ramone show blood pressure 155/77, heart rate 67, respiratory rate 16, temp 98.6 F, and SpO2 of 98% on room air. X-ray left lower tib-fib showing soft tissue swelling of distal left foreleg with no suspicious radiographic changes concerning for osteomyelitis at this time. Labs were completed and reviewed. CBC showing leukocytosis with WBC count of 14.8. BMP showing mildly elevated renal function with BUN of 17, creatinine of 1.37, and GFR 49 with baseline creatinine around 1.2. Blood glucose was 161. Lactic acid was 2.0. Liver function showing hyperbilirubinemia with bilirubin of 2.9, likely chronic. Urinalysis was positive for infection with greater than 182 WBCs, large leukocytes, protein, glucose, and blood. Patient was started on IV antibiotics for treatment of UTI and left lower extremity cellulitis and admitted under our services with consultation to infectious disease. Physical exam: Patient seen and fully evaluated at bedside. Patient expressing agitation this morning regarding complaints of pain in his back and leg. Patient was reinforms that he has pain medication available upon request including Tylenol for mild pain, Jackman for moderate pain, and morphine for severe pain. Patient also reporting frustration that he urinated on himself this morning secondary to urinary urgency. Vital signs reviewed and stable. General: Nontoxic, no distress and appears stated age. Derm: Skin warm and dry, normal coloration for ethnicity. Head: Atraumatic, normocephalic and symmetric. Eyes: EOM's intact, no lid lag, and anicteric sclera Mouth: no lip lesions, mucus membranes moist Cardiovascular: regular rate and rhythm with normal S1S2, no murmur, gallop, or rub. Lungs: Respirations even, regular, and unlabored on room air. Lungs CTA bilaterally, no rhonchi, no rales, no wheezing, and no accessory muscle usage. Abdominal: soft, nontender to palpation, no guarding, no appreciable organomegaly Ext: Right AKA. Left lower extremity swelling and erythema consistent with cellulitis. No open wounds or drainage. Neuro: Speech clear, face symmetrical and CN II-XII grossly intact with no noted focal neuro deficits Psych: Alert and oriented to person, place, time, and situation. Appropriate and pleasant affect. Assessment and Plan of Care: 79-year-old male with left leg cellulitis that has failed to be treated with wound care and oral antibiotics. Imaging is negative for fractures or VTE. Cellulitis of the left lower leg in patient with poorly controlled diabetes UTI -Infectious disease following, discussed case with Dr. Tapia. -Continue IV antibiotics with cefazolin 2 g every 8 hours. -Symptomatic care and pain management with Tylenol 650 mg p.o. every 6 hours as needed for mild pain, Jackman 5/325 mg tablets every 4 hours for moderate pain and morphine 4 mg IV every 4 hours as needed for management of severe pain -Zofran 4 mg IVP every 8 hours as needed for nausea -Wound care consulted, appreciate recommendations -CRP 19 -Follow-up on urine and blood culture result Insulin-dependent diabetes mellitus, poorly controlled -Hemoglobin A1c 7.4%. -Continue Levemir 30 units nightly and glycemic protocol with NovoLog sliding scale. Acute kidney injury on chronic kidney disease status post history of right nephrectomy -Repeat morning labs showing improvement of renal function closer to baseline with BUN of 17, creatinine of 1.28, GFR 53. -Discontinue IV fluids and resume oral Lasix 40 mg daily and 20 mg nightly. Paroxysmal atrial fibrillation Subtherapeutic INR -Continue Coumadin, pharmacy to dose for goal therapeutic range of 2-3. Currently INR subtherapeutic at 1.5. Hypertension -Monitor vital signs and continue amlodipine 2.5 mg daily and metoprolol 12.5 mg twice daily. Data and imaging reviewed: Vital signs reviewed. Blood pressure 165/78, heart rate 87, respiratory rate 18, temp 97.6 F, and SpO2 of 96% on room air.. Morning labs reviewed. INR subtherapeutic at 1.5. Blood glucose 111 CODE STATUS: Full code DVT prophylaxis: Coumadin Anticipated discharge date: Pending clinical course Anticipated discharge place: Home with home care Patient was seen independently by Nurse Pracitioner. This document was prepared using [employer] dictation software. Please allow for errors in drying oven attendant, while rare they do occur. I reviewed the documentation as provided by the KAYLAN above, who is the original author of this note. I agree with the documented assessment and plan, with the following changes: none Objective - Vital Signs Vital signs: Vital Signs Temp 97.6 F 07/30/24 07:20 Pulse 87 07/30/24 08:00 Resp 18 07/30/24 08:00 BP 165/78 07/30/24 07:20 Pulse Ox 96 07/30/24 07:20 FiO2 Intake & Output 07/29/24 07/30/24 07/30/24 18:59 06:59 18:59 Intake Total 540 Output Total 1000 Balance -460 Weight 90.718 kg Intake: Oral 540 Output: Urine 1000 Other: Voiding Method External Catheter External Catheter - Labs CBC & Chem 7: 07/28/24 15:44 07/29/24 06:36 Labs: Abnormal Lab Results - Last 24 Hours (Table) 07/29/24 07/29/24 07/29/24 Range/Units 06:42 11:38 18:04 POC Glucose (mg/dL) 171 H 164 H (70-110) mg/dL Hemoglobin A1c 7.4 H (<=6.0) % 07/29/24 07/30/24 Range/Units 21:21 07:21 POC Glucose (mg/dL) 129 H 111 H (70-110) mg/dL Hemoglobin A1c (<=6.0) %
[2024-07-30 17:04] LABS: Glucose,Whole Blood 255 mg/dL (70-110)
[2024-07-30] MEDS: WARFARIN 2 MG TAB PO ONE (18:09)
[2024-07-30 20:36] LABS: Glucose,Whole Blood 181 mg/dL (70-110)
--- NOTE | 2024-07-30 22:50 | P.PN ---
Subjective Progress Note Date: 07/30/24 Principal diagnosis: Reason for follow-up is left leg cellulitis Patient is 79-year-old male with a past medical history significant for diabetes mellitus right nephrectomy for benign tumor hard of hearing, patient presenting to the hospital for evaluation of increasing swelling and redness to the left lower extremity, patient be diagnosed with cellulitis prompted this consultation. On today's evaluation that is 07/30/2024 the patient continues to be afebrile, the patient is breathing comfortably on room air patient denies having any chest pain or cough, no nausea no vomiting abdominal pain or diarrhea left leg swelling redness has decreased patient has been insisting on going home. Patient did have a narrowing with 0.5 no CBC was done today Objective - Vital Signs Vital signs: Vital Signs Temp 99.6 F 07/30/24 20:00 Pulse 78 07/30/24 20:00 Resp 14 07/30/24 20:00 BP 143/73 07/30/24 20:00 Pulse Ox 95 07/30/24 20:00 FiO2 Intake & Output 07/30/24 07/30/24 07/31/24 06:59 18:59 06:59 Intake Total 540 Output Total 1000 1100 Balance -460 -1100 Weight 90.718 kg Intake: Oral 540 Output: Urine 1000 1100 Other: Voiding Method External Catheter External Catheter # Voids 0 - Exam GENERAL DESCRIPTION: An elderly male lying in bed in no distress RESPIRATORY SYSTEM: Unlabored breathing , decreased breath sounds at bases HEART: S1 S2 regular rate and rhythm , ABDOMEN: Soft , no tenderness EXTREMITIES: Left leg swelling redness slightly decreased - Labs CBC & Chem 7: 07/28/24 15:44 07/29/24 06:36 Labs: Abnormal Lab Results - Last 24 Hours (Table) 07/30/24 07/30/24 07/30/24 Range/Units 07:21 09:31 11:57 PT 15.2 H (10.0-12.5) sec INR 1.5 H (<1.2) POC Glucose (mg/dL) 111 H 171 H (70-110) mg/dL 07/30/24 07/30/24 Range/Units 17:02 20:34 PT (10.0-12.5) sec INR (<1.2) POC Glucose (mg/dL) 255 H 181 H (70-110) mg/dL Assessment and Plan (1) Left leg cellulitis Current Visit: Yes Status: Acute Code(s): L03.116 - CELLULITIS OF LEFT LOWER LIMB SNOMED Code(s): 23209200937713964 (2) Leukocytosis Current Visit: Yes Status: Acute Code(s): D72.829 - ELEVATED WHITE BLOOD CELL COUNT, UNSPECIFIED SNOMED Code(s): 345177976 (3) Allergy to sulfa drugs Current Visit: Yes Status: Acute Code(s): Z88.2 - ALLERGY STATUS TO SULFONAMIDES SNOMED Code(s): 77203177 Plan: 1patient presented to hospital with increasing swelling and redness to the left lower extremity and this patient has been diagnosed with a cellulitis with diffuse swelling and redness more likely streptococcal disease clinically doubt MRSA or gram-negative infection 2-patient with mild elevated creatinine and only kidney, high risk of nephrotoxicity from vancomycin and Zosyn combination which was discontinued 3-patient to continue with cefazolin 2 g every 8 hours and hopefully finishing therapy with oral Keflex Dictation was produced using [employer] dictation software. please excuse any grammatical, word or spelling errors. Time with Patient: Less than 30
[2024-07-31 05:44] LABS: ALT 6 U/L (4-49); AST 20 U/L (17-59); African American GFR (CKD) 65 (>60 ml/min/1.73 sqM); Albumin 3.3 g/dL (3.5-5.0); Albumin/Globulin Ratio 1.2; Alkaline Phosphatase 63 U/L (38-126); Anion Gap 6 mmol/L; Blood Urea Nitrogen 19 mg/dL (9-20); Calcium 8.3 mg/dL (8.4-10.2); Carbon Dioxide 23 mmol/L (22-30); Chloride 108 mmol/L (98-107); Globulin 2.7 g/dL; Glucose 119 mg/dL (74-99); Magnesium 2.2 mg/dL (1.6-2.3); Non-African American GFR(CKD) 56 (>60 ml/min/1.73 sqM); Potassium 3.3 mmol/L (3.5-5.1); Sodium 137 mmol/L (137-145); Total Bilirubin 1.4 mg/dL (0.2-1.3)
[2024-07-31 05:52] LABS: INR 1.6 (<1.2)
[2024-07-31 07:39] LABS: Glucose,Whole Blood 113 mg/dL (70-110)
[2024-07-31 07:54] VITALS: RESP 18
[2024-07-31 09:50] LABS: HCT 44.9 % (39.6-50.0); HGB 14.9 g/dL (13.0-17.0); MCH 27.3 pg (27.0-32.0); MCHC 33.2 g/dL (32.0-37.0); MCV 82.2 FL (80.0-97.0); Mean Platelet Volume 10.4 FL (9.5-12.2); NRBC Per 100 WBC 0 X 10*3/uL (0.00-0.01); Platelet Count 198 X 10*3/uL (140-440); RBC 5.46 X 10*6/uL (4.40-5.60); RDW 17.2 % (11.5-14.5); WBC 8.15 X 10*3/uL (4.50-10.00)
[2024-07-31 12:09] LABS: Glucose,Whole Blood 187 mg/dL (70-110)
--- NOTE | 2024-07-31 12:47 | P.DS ---
Providers Date of admission: 07/28/24 20:35 Expected date of discharge: 07/31/24 Attending physician: Candi Heath MD Consults: 07/28/24 19:32 Consult Physician Routine Consulting Provider: Sarah Tapia Consult Reason/Comments: infection Do you want consulting provider notified?: Yes Primary care physician: [facility] Hospital Course: Discharge Diagnosis: Cellulitis of the left lower leg in patient with poorly controlled diabetes UTI Insulin-dependent diabetes mellitus, poorly controlled Acute kidney injury on chronic kidney disease status post history of right nephrectomy Paroxysmal atrial fibrillation Subtherapeutic INR Hypertension Hospital Course: Patient is a very pleasant 79-year-old male with a past medical history of paroxysmal atrial fibrillation on anticoagulation with Coumadin, hypertension, insulin-dependent diabetes mellitus, right AKA, and 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 He presented to the emergency department on 07/28/2024 secondary to left lower extremity redness and swelling. He reports following wound care outpatient and experienced increased redness and swelling approximately 4 days ago which progressively worsened and so he returned to wound care center and was sent to the emergency department for further nora luation and admission for IV antibiotics. Upon arrival to our facility, patient underwent evaluation in the emergency department. Vital signs upon arrival show blood pressure 155/77, heart rate 67, respiratory rate 16, temp 98.6 F, and SpO2 of 98% on room air. X-ray left lower tib-fib showing soft tissue swelling of distal left foreleg with no suspicious radiographic changes concerning for osteomyelitis at this time. Labs were completed and reviewed. CBC showing leukocytosis with WBC count of 14.8. BMP showing mildly elevated renal function with BUN of 17, creatinine of 1.37, and GFR 49 with baseline creatinine around 1.2. Blood glucose was 161. Lactic acid was 2.0. Liver function showing hyperbilirubinemia with bilirubin of 2.9, likely chronic. Urinalysis was positive for infection with greater than 182 WBCs, large leukocytes, protein, glucose, and blood. Patient was started on IV antibiotics for treatment of UTI and left lower extremity cellulitis and admitted under our services with consultation to infectious disease. Patient received 3-day course of IV antibiotics and was very adamant on being discharged home. Urine culture is not available at time of discharge and this was discussed with patient, patient adamantly refused to stay in the hospital. Discussed with infectious disease, patient being discharged home on Keflex 500 mg every 8 hours for 10 days. Pat lorenent informed that his PCP will need to follow-up with urine culture results and make any changes to current antibiotic regimen based upon these findings if indicated. Patient being discharged per his request at this time and to follow- up outpatient with his PCP in 1 to 2 days and with infectious disease in 2 weeks. Patient was also thoroughly informed that his INR was subtherapeutic and that he will require a repeat INR to be completed outpatient in 3 days with results to be sent to PCP for management/changes to his Coumadin dosing if indicated. Physical exam: Vital signs reviewed and stable. General: Nontoxic, no distress and appears stated age. Derm: Skin warm and dry, normal coloration for ethnicity. Head: Atraumatic, normocephalic and symmetric. Eyes: EOM's intact, no lid lag, and anicteric sclera Mouth: no lip lesions, mucus membranes moist Cardiovascular: regular rate and rhythm with normal S1S2, no murmur, gallop, or rub. Lungs: Respirations even, regular, and unlabored on room air. Lungs CTA bilaterally, no rhonchi, no rales, no wheezing, and no accessory muscle usage. Abdominal: soft, nontender to palpation, no guarding, no appreciable organomegaly Ext: Right AKA. Left lower extremity swelling and erythema consistent with cellulitis. No open wounds or drainage. Neuro: Speech clear, face symmetrical and CN II-XII grossly intact with no noted focal neuro deficits Psych: Alert and oriented to person, place, time, and situation. Angry affect. A total of 39 minutes of time were spent preparing this complex discharge summary. Pt was discharged on 07/31/2024 at 12:12 PM. Patient was seen independently by Nurse Practitioner. This document was prepared using [employer] dictation software. Please allow for errors in lumber grader while rare they do occur. I reviewed the documentation as provided by the KAYLAN above, who is the original author of this note. I agree with the documented assessment and plan, with the following changes: none Patient Condition at Discharge: Stable Plan - Discharge Summary New Discharge Prescriptions: New Cephalexin [Keflex] 500 mg PO Q8HR 10 Days #30 cap Continue Ferrous Sulfate [Iron (65 MG Elemental)] 325 mg PO DAILY Pantoprazole Sodium [Protonix] 40 mg PO DAILY #30 tablet.dr amLODIPine [Norvasc] 2.5 mg PO DAILY #30 tab Doxycycline Hyclate 100 mg PO DIRECTED Furosemide [Lasix] 20 mg PO HS Insulin Glargine [Lantus Vial] 35 unit SQ HS Potassium Chloride ER [K-Dur 10] 10 meq PO DAILY Empagliflozin [Jardiance] 10 mg PO DAILY Furosemide [Lasix] 40 mg PO DAILY Metoprolol Tartrate [Lopressor] 12.5 mg PO BID Selenium Sulfide 1 applic TOPICAL DAILY Warfarin [Coumadin] 2.5 mg PO HS Discharge Medication List Ferrous Sulfate [Iron (65 MG Elemental)] 325 mg PO DAILY 05/10/20 [History] Pantoprazole Sodium [Protonix] 40 mg PO DAILY #30 tablet. 05/17/20 [Rx] amLODIPine [Norvasc] 2.5 mg PO DAILY #30 tab 12/25/20 [Rx] Doxycycline Hyclate 100 mg PO DIRECTED 07/28/24 [History] Empagliflozin [Jardiance] 10 mg PO DAILY 07/28/24 [History] Furosemide [Lasix] 20 mg PO HS 07/28/24 [History] Furosemide [Lasix] 40 mg PO DAILY 07/28/24 [History] Insulin Glargine [Lantus Vial] 35 unit SQ HS 07/28/24 [History] Metoprolol Tartrate [Lopressor] 12.5 mg PO BID 07/28/24 [History] Potassium Chloride ER [K-Dur 10] 10 meq PO DAILY 07/28/24 [History] Selenium Sulfide 1 applic TOPICAL DAILY 07/28/24 [History] Warfarin [Coumadin] 2.5 mg PO HS 07/28/24 [History] Cephalexin [Keflex] 500 mg PO Q8HR 10 Days #30 cap 07/31/24 [Rx] Follow up Appointment(s)/Referral(s): Sarah Tapia MD [STAFF PHYSICIAN] - 2 Weeks [facility],Clinic [Primary Care Provider] - 1-2 days Ambulatory/Diagnostic Orders: Prothrombin Time INR [LAB.AMB] Time Frame: 3 Days, Location: None Selected Patient Instructions/Handouts: Cephalexin (By mouth), Urinary Tract Infection in Men (DC), Cellulitis (GEN) Activity/Diet/Wound Care/Special Instructions: Activity: As tolerated. Diet: Heart healthy and carb consistent diet. Avoid salts, or foods with hidden salts such as canned or boxed foods and frozen dinners. Extra salt makes your heart work harder and traps the fluid in your body for longer. Special Instructions: Take all of your medications as directed and remember to keep all of your doctor's appointments and follow-up as needed. You have been very adamant on being discharged today, however your urine culture is not available as discussed. Your PCP will need to follow-up with these results and make any changes if needed to your antibiotic regimen based upon these findings. Thank you for allowing us to participate in your care, it was truly a pleasure having you for our patient!!! Your INR is subtherapeutic this morning, it is highly recommended that you have a repeat INR in 3 days to ensure therapeutic levels. Again, I would like to thank you for your service. It is always really an honor and blessing have the opportunity to provide care for a !! . Discharge Disposition: HOME SELF-CARE
[2024-07-31 12:51] VITALS: BP 165/74; PULSE 82; TEMP 97.4
--- NOTE | 2024-07-31 14:00 | P.PN ---
Subjective Progress Note Date: 07/31/24 Principal diagnosis: Reason for follow-up is left leg cellulitis Patient is 79-year-old male with a past medical history significant for diabetes mellitus right nephrectomy for benign tumor hard of hearing, patient presenting to the hospital for evaluation of increasing swelling and redness to the left lower extremity, patient be diagnosed with cellulitis prompted this consultation. On today's evaluation that is 07/31/2024, the patient continues to be afebrile, the patient is on room air and breathing comfortably, the Pt denies having any chest pain or cough, the patient denies having any abdominal pain no vomiting or any diarrhea patient pain to the left leg has been improved and has been fighting to go home. The patient white count is 8.05, creatinine is 1.22 Objective - Vital Signs Vital signs: Vital Signs Temp 98.3 F 07/31/24 07:21 Pulse 85 07/31/24 07:21 Resp 18 07/31/24 07:21 BP 159/76 07/31/24 07:21 Pulse Ox 97 07/31/24 07:21 FiO2 Intake & Output 07/30/24 07/31/24 07/31/24 18:59 06:59 18:59 Intake Total 540 Output Total 1100 600 300 Balance -1100 -60 -300 Intake: Oral 540 Output: Urine 1100 600 300 Other: Voiding Method External Catheter External Catheter External Catheter # Voids 0 0 - Exam GENERAL DESCRIPTION: An elderly male lying in bed in no distress RESPIRATORY SYSTEM: Unlabored breathing , decreased breath sounds at bases HEART: S1 S2 regular rate and rhythm , ABDOMEN: Soft , no tenderness EXTREMITIES: Left leg swelling and redness has decreased in intensity - Labs CBC & Chem 7: 07/31/24 04:41 07/31/24 04:41 Labs: Abnormal Lab Results - Last 24 Hours (Table) 07/30/24 07/30/24 07/30/24 Range/Units 11:57 17:02 20:34 RDW (11.5-14.5) % PT (10.0-12.5) sec INR (<1.2) Potassium (3.5-5.1) mmol/L Chloride (98-107) mmol/L Glucose (74-99) mg/dL POC Glucose (mg/dL) 171 H 255 H 181 H (70-110) mg/dL Calcium (8.4-10.2) mg/dL Total Bilirubin (0.2-1.3) mg/dL Total Protein (6.3-8.2) g/dL Albumin (3.5-5.0) g/dL 07/31/24 07/31/24 07/31/24 Range/Units 04:41 04:41 04:41 RDW 17.2 H (11.5-14.5) % PT 16.0 H (10.0-12.5) sec INR 1.6 H (<1.2) Potassium 3.3 L (3.5-5.1) mmol/L Chloride 108 H (98-107) mmol/L Glucose 119 H (74-99) mg/dL POC Glucose (mg/dL) (70-110) mg/dL Calcium 8.3 L (8.4-10.2) mg/dL Total Bilirubin 1.4 H (0.2-1.3) mg/dL Total Protein 6.0 L (6.3-8.2) g/dL Albumin 3.3 L (3.5-5.0) g/dL 07/31/24 Range/Units 07:23 RDW (11.5-14.5) % PT (10.0-12.5) sec INR (<1.2) Potassium (3.5-5.1) mmol/L Chloride (98-107) mmol/L Glucose (74-99) mg/dL POC Glucose (mg/dL) 113 H (70-110) mg/dL Calcium (8.4-10.2) mg/dL Total Bilirubin (0.2-1.3) mg/dL Total Protein (6.3-8.2) g/dL Albumin (3.5-5.0) g/dL Microbiology - Last 24 Hours (Table) 07/28/24 16:10 Urine Culture - Preliminary Urine,Clean Catch Assessment and Plan (1) Left leg cellulitis Status: Acute Code(s): L03.116 - CELLULITIS OF LEFT LOWER LIMB SNOMED Co de(s): 53223203687589119 (2) Leukocytosis Status: Acute Code(s): D72.829 - ELEVATED WHITE BLOOD CELL COUNT, UNSPECIFIED SNOMED Code(s): 928873319 (3) Allergy to sulfa drugs Status: Acute Code(s): Z88.2 - ALLERGY STATUS TO SULFONAMIDES SNOMED Code(s): 17429123 Plan: 1patient presented to hospital with increasing swelling and redness to the left lower extremity and this patient has been diagnosed with a cellulitis with diffuse swelling and redness more likely streptococcal disease clinically doubt MRSA or gram-negative infection 2 patient has shown improvement with IV cefazolin he will finish therapy with oral Keflex along with Kaiden wrap for compression to keep the swelling down discussed with the nursing staff and BRANDING MACHINE OPERATOR for admitting team Dictation was produced using [employer] dictation software. please excuse any grammatical, word or spelling errors. Time with Patient: Less than 30
[2024-07-31] MEDS ORDERED: WARFARIN 2 MG TAB PO ONE (18:00)
--- NOTE | 2024-08-11 18:43 | CDI ---
Documentation Clarification Form Date: 08/11/2024 06:30:01 PM From: Judy Marcos Phone: Admit Date: 07/28/2024 08:35:00 PM Patient Name: Harjit Benjamin Visit Number: [id number] Discharge Date: 07/31/2024 01:34:00 PM ATTENTION: The Clinical Documentation Specialists (CDI) and [facility] Coding Staff appreciate your assistance in clarifying documentation. Please respond to the clarification below the line at the bottom and electronically sign. The CDI & [facility] Coding staff will review the response and follow-up if needed. Please note: Queries are made part of the Legal Health Record. If you have any questions, please contact the author of this message via ITS. Doctor/Provider: Candi Heath Uncontrolled/poorly controlled IDDMII is documented per H&P, Progress Notes and DC Summary. Additional specificity regarding the diabetes diagnosis is requested. History/Risk Factors: 79yo M, cellulitis of the LLE, poorly controlled DMII, strep UTI, GRETCHEN on CKD w Hx right nephrectomy, PAF, HTN, Subtherapeutic INR Home Meds: Insulin Glargine [Lantus Vial] 35 unit SQ HS; Empagliflozin [Jardiance] 10 mg PO DAILY Clinical Indicators: A1C: 7.4 Glucose: 07/28 161 07/29 121- 171 07/30 111- 255 07/31 119-255 Treatment: Insulin SS medium dose ACHS. Glucose AccuCheks ACHS, monitor forhypoglycemia. Levemir 30 units once a day Please clarify the type of diabetes, if known: [ ] Diabetes Type 2 with hyperglycemia [ ] Diabetes Type 2 with hypoglycemia [ ] Other, please specify [ ] Unable to Determine (Template Last Revised: December 2020) Diabetes Type 2 with hyperglycemia MTDD
--- NOTE | 2024-08-11 18:52 | CDI ---
Documentation Clarification Form Date: 08/11/2024 06:44:07 PM From: Judy Marcos Phone: Admit Date: 07/28/2024 08:35:00 PM Patient Name: Harjit Benjamin Visit Number: [id number] Discharge Date: 07/31/2024 01:34:00 PM ATTENTION: The Clinical Documentation Specialists (CDI) and [facility] Coding Staff appreciate your assistance in clarifying documentation. Please respond to the clarification below the line at the bottom and electronically sign. The CDI & [facility] Coding staff will review the response and follow-up if needed. Please note: Queries are made part of the Legal Health Record. If you have any questions, please contact the author of this message via ITS. Doctor/Provider: Candi Heath Unspecified CKD is documented Progress Note 07/29, 07/30 and DC Summary. Additional clarification regarding the stage of CKD is requested. History/Risk Factors: 79yo M, cellulitis of the LLE, poorly controlled DMII, strep UTI, GRETCHEN on CKD w Hx right nephrectomy, PAF, HTN, Subtherapeutic INR BMPshowing mildlyelevated renal function with BUN of 17, creatinine of 1.37, and GFR 49 with baseline creatinine around 1.2. Clinical Indicators: BUN: 07/28 17 CR: 1.37 07/29 1.28 GFR: 07/29 49-53 Treatment: monitored Please clarify the stage of the CKD, if known: [ ] CKD Stage 3a [ ] CKD Stage 3b [ ] Other, please specify [ ] Unable to determine Reference: [employer] Stage 1 eGFR = 90 and kidney damage for =3 months Stage 2 eGFR 60-89 and kidney damage for =3 months Stage 3a eGFR 45-59 and kidney damage for =3 months Stage 3b eGFR 30-44 and kidney damage for =3 months Stage 4 eGFR 15-29 r and kidney damage for =3 months Stage 5 eGFR <15 and kidney damage for =3 months (Template Last revised: October 2023) Stage 3a eGFR 45-59 and kidney damage for =3 months MTDD
== END 2024-07-31 13:34 | disposition home or self-care (01) | DRG 638 ==
LOC: EC 14:47 → 5NMEDONC 20:35
PROVIDERS: ADMIT Internal Medicine; ATTEND Internal Medicine
DX: E11.628 Type 2 diabetes mellitus with other skin complications (principal); L03.116 Cellulitis of left lower limb; N39.0 Urinary tract infection, site not specified; B95.5 Unspecified streptococcus as the cause of diseases classified elsewhere; Z89.611 Acquired absence of right leg above knee; E11.22 Type 2 diabetes mellitus with diabetic chronic kidney disease; Z79.4 Long term (current) use of insulin; N17.9 Acute kidney failure, unspecified; I48.0 Paroxysmal atrial fibrillation; E11.65 Type 2 diabetes mellitus with hyperglycemia; N18.31 Chronic kidney disease, stage 3a; H91.90 Unspecified hearing loss, unspecified ear; E80.6 Other disorders of bilirubin metabolism; I12.9 Hypertensive chronic kidney disease with stage 1 through stage 4 chronic kidney disease, or unspecified chronic kidney disease; R79.1 Abnormal coagulation profile; Z79.01 Long term (current) use of anticoagulants; Z79.899 Other long term (current) drug therapy; Z90.5 Acquired absence of kidney; Z87.891 Personal history of nicotine dependence; Z79.84 Long term (current) use of oral hypoglycemic drugs; Z88.2 Allergy status to sulfonamides; Z86.018 Personal history of other benign neoplasm
CPT/HCPCS: 36415; 80053; 81001; 83036; 83605; 83735; 85025; 85027; 85610; 85652; 86140; 87077; 87086; 87186; 96361; 96365; 96366; 96367; 99285

== ENCOUNTER 2024-09-26 12:06 | Emergency (ER) | payer OTHER, MEDICARE ==
[2024-09-26 13:01] VITALS: BP 144/84; PULSE 62; RESP 18; TEMP 98.4
--- NOTE | 2024-09-26 13:05 | ED ---
Extremity Problem HPI - General Source: patient, family, RN notes reviewed Mode of arrival: ambulatory Limitations: no limitations - History of Present Illness MD Complaint: extremity pain <Cindy Grimes - Last Filed: 09/26/24 13:02> - General Source: patient, family, RN notes reviewed, old records reviewed Mode of arrival: ambulatory Limitations: no limitations - History of Present Illness MD Complaint: extremity pain, extremity swelling -: days(s) Location: left, lower extremity History of Same: Yes -: Yes myalgia, Yes arthralgia Radiation: none Severity scale (1-10): 6 Consistency: constant Improves with: nothing Worsens with: nothing Associated Symptoms: denies other symptoms <Boaz Camacho - Last Filed: 09/27/24 18:49> - General Chief complaint: Extremity Problem,Nontraumatic Stated complaint: LEG PAIN Time Seen by Provider: 09/26/24 12:55 - History of Present Illness Initial comments: Quick Note: This is a 79-year-old male who presents to the emergency department for left leg pain. He has been dealing with wounds on and off to this leg for the last 4 years. However, his leg was wrapped with an Ka[place] bandage about a month ago, and he has been refusing to let anyone take it off since. There were not any wounds at the time that they wrapped it. He has been complaining of increasing pain to the left lower leg over the last 4 days, and they were sent here to rule out a blood clot. (Cindy Grimes) This is a 79-year-old male for left leg pain left leg swelling concern for care of left leg, has no home care and possible need for antibiotics (Boaz Camacho) - Related Data Home Medications Medication Instructions Recorded Confirmed Ferrous Sulfate [Iron (65 MG 325 mg PO DAILY 05/10/20 07/28/24 Elemental)] Doxycycline Hyclate 100 mg PO DIRECTED 07/28/24 07/28/24 Empagliflozin [Jardiance] 10 mg PO DAILY 07/28/24 07/28/24 Furosemide [Lasix] 20 mg PO HS 07/28/24 07/28/24 Furosemide [Lasix] 40 mg PO DAILY 07/28/24 07/28/24 Insulin Glargine [Lantus Vial] 35 unit SQ HS 07/28/24 07/28/24 Metoprolol Tartrate [Lopressor] 12.5 mg PO BID 07/28/24 07/28/24 Potassium Chloride ER [K-Dur 10] 10 meq PO DAILY 07/28/24 07/28/24 Selenium Sulfide 1 applic TOPICAL DAILY 07/28/24 07/28/24 Warfarin [Coumadin] 2.5 mg PO HS 07/28/24 07/28/24 Previous Rx's Medication Instructions Recorded Pantoprazole Sodium [Protonix] 40 mg PO DAILY #30 tablet. 05/17/20 amLODIPine [Norvasc] 2.5 mg PO DAILY #30 tab 12/25/20 Cephalexin [Keflex] 500 mg PO Q8HR 10 Days #30 cap 07/31/24 Amoxic-Pot Clav 875-125Mg 1 tab PO Q12HR #20 tablet 09/26/24 [Augmentin 875-125] Allergies Allergy/AdvReac Type Severity Reaction Status Date / Time sulfamethoxazole Allergy Weakness Verified 09/26/24 13:01 [From Bactrim] trimethoprim [From Bactrim] Allergy Weakness Verified 09/26/24 13:01 Review of Systems ROS Other: All systems not noted in ROS Statement are negative. <Cindy Grimes - Last Filed: 09/26/24 13:02> ROS Other: All systems not noted in ROS Statement are negative. <Boaz Camacho - Last Filed: 09/27/24 18:49> ROS Statement: Those systems with pertinent positive or pertinent negative responses have been documented in the HPI. Past Medical History Past Medical History: Diabetes Mellitus, Hearing Disorder / Deafness, Renal Disease Additional Past Medical History / Comment(s): IDDM type II, R nephrectomy for beign tumor, would to L lower extremity, [place] bilateraloly-uses hearing aides. Pt states he does not know why he is on coumadin or lasix. History of Any Multi-Drug Resistant Organisms: None Reported Past Surgical History: Appendectomy Additional Past Surgical History / Comment(s): right kidney removed for benign tumor, colonoscopy. Past Anesthesia/Blood Transfusion Reactions: No Reported Reaction Additional Past Anesthesia/Blood Transfusion Reaction / Comment(s): Pt is unsure if he received blood Past Psychological History: No Psychological Hx Reported Smoking Status: Former smoker Past Alcohol Use History: None Reported Past Drug Use History: None Reported - Past Family History Father Additional Family Medical History / Comment(s): Father had "heart problems" He at the age of 91 yrs. Mother Family Medical History: Cancer Additional Family Medical History / Comment(s): Mother had cancer at the age of 84 yrs but pt does not recall type. She at the age of 91 yrs. <Cindy Grimes - Last Filed: 09/26/24 13:02> General Exam Limitations: no limitations <Cindy Grimes - Last Filed: 09/26/24 13:02> General appearance: alert, in no apparent distress Head exam: Present: atraumatic, normocephalic, normal inspection Eye exam: Present: normal appearance, PERRL, EOMI. Absent: scleral icterus, conjunctival injection, periorbital swelling ENT exam: Present: normal exam, mucous membranes moist Neck exam: Present: normal inspection. Absent: tenderness, meningismus, lymphadenopathy Respiratory exam: Present: normal lung sounds bilaterally. Absent: respiratory distress, wheezes, rales, rhonchi, stridor Cardiovascular Exam: Present: regular rate, normal rhythm, normal heart sounds. Absent: systolic murmur, diastolic murmur, rubs, gallop, clicks GI/Abdominal exam: Present: soft, normal bowel sounds. Absent: distended, tenderness, guarding, rebound, rigid Extremities exam: Present: normal inspection, full ROM, normal capillary refill. Absent: tenderness, pedal edema, joint swelling, calf tenderness Back exam: Present: normal inspection Neurological exam: Present: alert, oriented X3, CN II-XII intact Psychiatric exam: Present: normal affect, normal mood Skin exam: Present: warm, dry, intact, normal color. Absent: rash <Boaz Camacho - Last Filed: 09/27/24 18:49> - General Exam Comments Initial Comments: Visual Physical Exam Vital signs reviewed General: Well-appearing, nontoxic, no acute distress. Head: Normocephalic, atraumatic Eyes: PERRLA, EOMI ENT: Airway patent Chest: Nonlabored breathing Skin: No visual rash, normal skin tone Neuro: Alert and oriented 3 Musculoskeletal: No gross abnormalities (Cindy Grimes) Course <Boaz Camacho - Last Filed: 09/27/24 18:49> Vital Signs 09/26/24 12:56 Temperature 98.4 F Pulse Rate 62 Respiratory 18 Rate Blood Pressure 144/84 O2 Sat by Pulse 97 Oximetry - Reevaluation(s) Reevaluation #1: Medical records reviewed (Boaz Camacho) Reevaluation #2: Symptoms unchanged (Boaz Camacho) Reevaluation #3: Patient does not want further testing and prefers discharge (Boaz Camacho) Reevaluation #4: Was pt. sent in by a medical professional or institution (KATHIE Ornelas, CRM BUSINESS ANALYST, urgent care, hospital, or skilled nursing...) When possible be specific @ -no Did you speak to anyone other than the patient for history (EMS, parent, family, police, friend...)? What history was obtained from this source @ -no Did you review nursing and triage notes (agree or disagree)? Why? @ -agree Are old charts reviewed (outside hosp., previous admission, EMS record, old EKG, old radiological studies, urgent care reports/EKG's, skilled nursing records)? Report findings @ -yes Differential Diagnosis (chest pain, altered mental status, abdominal pain women, abdominal pain men, vaginal bleeding, weakness, fever, dyspnea, syncope, headache, dizziness, GI bleed, back pain, seizure, CVA, palpatations, mental health, musculoskeletal)? @ -prior EKG interpreted by me (3pts min.). @ -yes X-rays interpreted by me (1pt min.). @ -yes negative for acute disease CT interpreted by me (1pt min.). @ -no U/S interpreted by me (1pt. min.). @ -no What testing was considered but not performed or refused? (CT, X-rays, U/S, labs)? Why? @ -none What meds were considered but not given or refused? Why? @ -none Did you discuss the management of the patient with other professionals (pro fessionals i.e. KATHIE Ornelas, [employer] BUSINESS ANALYST, lab, RT, psych nurse, nursing home social worker, heel seam rubber, teacher, sanitation officer, director of casework)? Give summary @ -no Was smoking cessation discussed for >3mins.? @ -no Was critical care preformed (if so, how long)? @ -no Were there social determinants of health that impacted care today? How? (Homelessness, low income, unemployed, alcoholism, drug addiction, transportation, low edu. Level, literacy, decrease access to med. care, half-way, rehab)? @ -none Was there de-escalation of care discussed even if they declined (Discuss DNR or withdrawal of care, Hospice)? DNR status @ -no What co-morbidities impacted this encounter? (DM, HTN, Smoking, COPD, CAD, Cancer, CVA, ARF, Chemo, Hep., AIDS, mental health diagnosis, sleep apnea, morbid obesity)? @ -none Was patient admitted / discharged? Hospital course, mention meds given and route, prescriptions, significant lab abnormalities, going to OR and other pertinent info. @ - Undiagnosed new problem with uncertain prognosis? @ -no Drug Therapy requiring intensive monitoring for toxicity (Heparin, Nitro, Insulin, Cardizem)? @ -no Were any procedures done? @ -no Diagnosis/symptom? @ - Acute, or Chronic, or Acute on Chronic? @ -Acute Uncomplicated (without systemic symptoms) or Complicated (systemic symptoms)? @ -Complicated Side effects of treatment? @ -no Exacerbation, Progression, or Severe Exacerbation? @ -exacerbation Poses a threat to life or bodily function? How? (Chest pain, [place], [place], pneumonia, PE, COPD, DKA, ARF, appy, cholecystitis, CVA, Diverticulitis, Homicidal, Suicidal, threat to staff... and all critical care pts) @ -yes (Boaz Camacho) Medical Decision Making <Cindy Grimes - Last Filed: 09/26/24 13:02> - Lab Data Result diagrams: 09/26/24 13:56 09/26/24 13:56 <Boaz Camacho - Last Filed: 09/27/24 18:49> - Medical Decision Making I performed the QuickNote portion of this chart. Signed Cindy Grimes PA-C. (Cindy Grimes) 79 male to ER for wound evaluation, patient got tired of waiting in the waiting room and decided to leave without further evaluation or testing and does not want to stay overnight in the hospital (Boaz Camacho) - Lab Data Lab Results 09/26/24 09/26/24 09/26/24 Range/Units 13:56 13:56 13:56 WBC 8.9 (3.8-10.6) k/uL RBC 5.70 (4.30-5.90) m/uL Hgb 15.8 (13.0-17.5) gm/dL Hct 46.5 (39.0-53.0) % MCV 81.7 (80.0-100.0) fL MCH 27.7 (25.0-35.0) pg MCHC 33.9 (31.0-37.0) g/dL RDW 17.0 H (11.5-15.5) % Plt Count 161 (150-450) k/uL MPV 8.3 Neutrophils % 77 % Lymphocytes % 15 % Monocytes % 4 % Eosinophils % 2 % Basophils % 1 % Neutrophils # 6.8 (1.3-7.7) k/uL Lymphocytes # 1.4 (1.0-4.8) k/uL Monocytes # 0.4 (0-1.0) k/uL Eosinophils # 0.2 (0-0.7) k/uL Basophils # 0.1 (0-0.2) k/uL Anisocytosis Slight Sodium 135 L (137-145) mmol/L Potassium 4.1 (3.5-5.1) mmol/L Chloride 105 (98-107) mmol/L Carbon Dioxide 24 (22-30) mmol/L Anion Gap 6 mmol/L BUN 16 (9-20) mg/dL Creatinine 1.31 H (0.66-1.25) mg/dL Est GFR (CKD-EPI)AfAm 60 (>60 ml/min/1.73 sqM) Est GFR (CKD-EPI)NonAf 52 (>60 ml/min/1.73 sqM) Glucose 101 H (74-99) mg/dL Plasma Lactic Acid Humble 1.3 (0.7-2.0) mmol/L Calcium 9.4 (8.4-10.2) mg/dL Total Bilirubin 1.4 H (0.2-1.3) mg/dL AST 21 (17-59) U/L ALT 12 (4-49) U/L Alkaline Phosphatase 65 (38-126) U/L C-Reactive Protein 1.0 H (<1.0) mg/dL Total Protein 7.3 (6.3-8.2) g/dL Albumin 4.5 (3.5-5.0) g/dL Disposition <Cindy Grimes - Last Filed: 09/26/24 13:02> Is patient prescribed a controlled substance at d/c from ED?: No Time of Disposition: 17:30 <Boaz Camacho - Last Filed: 09/27/24 18:49> Clinical Impression: Leg wound, left, Left leg cellulitis, Leg edema, left, Left leg pain Disposition: LEFT AGAINST MEDICAL ADVICE Condition: Good Instructions (If sedation given, give patient instructions): Cellulitis (ED), Leg Edema (ED), Leg Pain (ED) Prescriptions: Amoxic-Pot Clav 875-125Mg [Augmentin 875-125] 1 tab PO Q12HR #20 tablet Referrals: [facility],Clinic [Primary Care Provider] - 1-2 days
--- NOTE | 2024-09-26 13:50 | US ---
EXAMINATION TYPE: US venous doppler duplex LE LT DATE OF EXAM: 09/26/2024 1:33 PM COMPARISON: Prev right leg only CLINICAL INDICATION: Male, 79 years old with history of Leg pain; Left leg wound, Pain TECHNIQUE: The lower extremity deep venous system is examined utilizing real time linear array sonog brenda with graded compression, color doppler sonography, and spectral doppler. SIDE PERFORMED: Left FINDINGS: VESSELS IMAGED: Common Femoral Vein Deep Femoral Vein Greater Saphenous Vein * Femoral Vein Popliteal Vein Small Saphenous Vein * Proximal Calf Veins (* superficial vessels) Left Leg: Negative for DVT, Color Doppler imaging shows patency of the vessels. Spectral waveforms a re within normal limits. Left distal popliteal vein and proximal calf veins unable to be assessed du e to edema. IMPRESSION: No ultrasound evidence for deep venous thrombosis. [facility], , 09/26/2024 1:48 PM
[2024-09-26 14:45] LABS: Anisocytosis Slight; Basophils # (A) 0.1 k/uL (0-0.2); Basophils % (A) 1 %; Eosinophils # (A) 0.2 k/uL (0-0.7); Eosinophils % (A) 2 %; HCT 46.5 % (39.0-53.0); HGB 15.8 gm/dL (13.0-17.5); Lymphocytes # (A) 1.4 k/uL (1.0-4.8); Lymphocytes % (A) 15 %; MCH 27.7 pg (25.0-35.0); MCHC 33.9 g/dL (31.0-37.0); MCV 81.7 fL (80.0-100.0); Mean Platelet Volume 8.3; Monocytes # (A) 0.4 k/uL (0-1.0); Monocytes % (A) 4 %; Neutrophils # (A) 6.8 k/uL (1.3-7.7); Neutrophils % (A) 77 %; Platelet Count 161 k/uL (150-450); WBC 8.9 k/uL (3.8-10.6)
[2024-09-26 14:58] LABS: ALT 12 U/L (4-49); AST 21 U/L (17-59); African American GFR (CKD) 60 (>60 ml/min/1.73 sqM); Albumin 4.5 g/dL (3.5-5.0); Alkaline Phosphatase 65 U/L (38-126); Anion Gap 6 mmol/L; Blood Urea Nitrogen 16 mg/dL (9-20); Calcium 9.4 mg/dL (8.4-10.2); Carbon Dioxide 24 mmol/L (22-30); Chloride 105 mmol/L (98-107); Glucose 101 mg/dL (74-99); Non-African American GFR(CKD) 52 (>60 ml/min/1.73 sqM); Potassium 4.1 mmol/L (3.5-5.1); Sodium 135 mmol/L (137-145); Total Bilirubin 1.4 mg/dL (0.2-1.3); Total Protein 7.3 g/dL (6.3-8.2)
[2024-09-26] MEDS ORDERED: traMADol 50 MG STARTER PACK 3 TAB BTL PO STA (17:14)
[2024-09-26] MEDS ORDERED: ONDANSETRON 4 MG ODT STARTER PACK 2 TAB BTL PO STA (17:14)
[2024-09-26] MEDS ORDERED: AMOXIC-POT CLAV 875MG STARTER PACK 2 TAB BTL PO STA (17:14)
[2024-09-26] MEDS ORDERED: AMOXIC-POT CLAV 875-125MG 1 EACH TAB PO STA (17:14)
[2024-09-26] MEDS ORDERED: traMADol 50 MG TAB PO STA (17:14)
== END 2024-09-26 19:40 | disposition left against medical advice (07) ==
LOC: EC 12:06
DX: L03.116 Cellulitis of left lower limb (principal); Z87.891 Personal history of nicotine dependence; Z88.2 Allergy status to sulfonamides
CPT/HCPCS: 36415; 80053; 83605; 85025; 86140; 99284